=== PATIENT | female | born 1935 | race Caucasian/White ===

== ENCOUNTER 2017-10-04 09:04 | Inpatient (IN) | payer MEDICARE, OTHER ==
[2017-10-04] MEDS ORDERED: Metoprolol Tartrate 5 MG/5 ML VIAL ONE ×2 (09:27→10:30)
[2017-10-04 09:29] LABS: #Eosinphils 0.1 thou/uL (0.0-0.7); #Lymphocytes 2.5 thou/uL (1.20-3.40); #Monocytes 0.6 thou/uL (0.11-0.59); #Neutrophils 4.4 thou/uL (1.40-6.50); %Basophils 0.5 % (0.0-1.0); %Eosinophils 1.7 % (0.0-10.0); %Lymphocytes 32.4 % (21.0-51.0); %Monocytes 7.8 % (0.0-10.0); %Neutrophils 57.5 % (42.0-75.0); Hemoglobin 10.2 g/dL (12.0-16.0); Mean Corpuscular HGB CONC 31.9 g/dL (32.0-36.0); Mean Corpuscular Hemoglobin 31.7 pg (27.0-31.0); Mean Corpuscular Volume 99.4 fl (81.0-99.0); Mean Platelet Volume 8.4 fL (7.4-10.4); Platelet Count 228 thou/uL (130-400); RBC Distribution Width 13.5 % (11.5-14.5); Red Blood Cell (RBC) Count 3.21 mill/uL (4.20-5.40); White Blood Cell (WBC) Count 7.6 thou/uL (4.8-10.8)
[2017-10-04 09:56] LABS: ALT (SGPT) 8 U/L (8-55); AST (SGOT) 17 U/L (5-34); Albumin 3.7 g/dL (3.4-4.8); Alkaline Phosphatase 40 U/L (40-150); Anion Gap 16 mmol/L (10-20); BUN (Urea Nitrogen) 21 mg/dL (9.8-20.1); Bilirubin, Total 1.5 mg/dL (0.2-1.2); CK (CPK) 43 U/L (29-168); Calc. Creatinine Clearance 0 mL/min (70-130); Calcium 8.6 mg/dL (7.8-10.44); Carbon Dioxide 23 mmol/L (23-31); Chloride 101 mmol/L (98-107); Estimated GFR-MDRD 56; Globulin 3.1 g/dL (2.4-3.5); Glucose 161 mg/dL (83-110); Potassium 3.6 mmol/L (3.5-5.1); Protein, Total 6.8 g/dL (6.0-8.3); Sodium 136 mmol/L (136-145)
[2017-10-04 10:03] LABS: CKMB 0.6 ng/mL (0-6.6); Troponin I 0.028 ng/mL (< 0.028)
--- NOTE | 2017-10-04 10:08 | RAD ---
PORTABLE CHEST: History: Shortness of breath. Comparison: 08-12-14 FINDINGS: Cardiomegaly again noted. There is vascular congestion with mild interstitial congestion. Similar fin dings were present previously. I cannot exclude small effusions. No consolidation or focal infiltrate . IMPRESSION: Cardiomegaly with evidence of mild vascular congestion. POS: [facility]
[2017-10-04] MEDS ORDERED: Esmolol 2,500 MG/NS 250 ML 250 ML ONE (10:46)
[2017-10-04] MEDS ORDERED: Metoprolol Tartrate 50 MG TAB ONE (12:06)
[2017-10-04 12:48] LABS: Troponin I 0.036 ng/mL (< 0.028)
[2017-10-04] MEDS ORDERED: HYDROcodone/Acetaminophen 7.5/325 mg Tablet PO PRN (16:51)
[2017-10-04] MEDS ORDERED: Ondansetron HCl/PF 4 MG/2 ML Vial IVP PRN (16:51)
[2017-10-04] MEDS ORDERED: Nitroglycerin 0.4 MG TAB (25 Tab Bottle) PO PRN (16:51)
[2017-10-04] MEDS ORDERED: Dextrose 50% Abboject 50 ML SYRINGE SLOW IVP PRN (17:00)
[2017-10-04] MEDS ORDERED: Dextrose 5% in Water 1,000 ML IV PRN (17:00)
[2017-10-04] MEDS: HumaLOG 300 UNITS/3 ML VIAL SC PRN (17:48)
[2017-10-04] MEDS: Acetaminophen 325 MG TAB PO PRN ×2 (17:49→22:14)
--- NOTE | 2017-10-04 18:10 | HP ---
DATE OF ADMISSION: 10/04/2017 CHIEF COMPLAINT: Shortness of breath. HISTORY OF PRESENT ILLNESS: This is an 81-year-old white female who has a known history of coronary artery disease with history of hypertension and hyperlipidemia. She was in her usual state of health until 3 days ago, she started noticing worsening shortness of breath more worse when she was standin g and walking. Denies having any chest pain associated with some lightheadedness. No nausea, no vom iting, no diarrhea, no constipation. The patient has a known history of coronary artery disease, sta tus post stents more than 2 years ago and she sees Dr. Tilley. She denied having any chest pain re cently. She came to the ER and was noted to have atrial fibrillation with rapid ventricular rate. H eart rate went up to like 120s and she was given metoprolol 5 mg IV x1 and the heart rate did respond well, it dropped to 110. She got another dose when the heart rate was again going up to 130s and th e patient was responding very well to the beta blockers. She was alert and oriented. She had a ches t x-ray done in the ER, which showed an evidence of bilateral mild pleural effusions with signs sugge stive of congestive heart failure. She had a markedly elevated BNP. Discussed with the patient and the family at the bedside. PAST MEDICAL HISTORY: 1. Chronic anemia. 2. History of gastric ulcer disease. 3. Hypertension. 4. Coronary artery disease, status post stents. 5. Type 2 diabetes mellitus. 6. GERD. 7. Chronic renal insufficiency. PAST SURGICAL HISTORY: 1. . 2. Appendectomy. 3. Hernia repair. 4. Cholecystectomy. 5. History of stent placement. 6. Cataract surgery. ALLERGIES: No known drug allergies. FAMILY HISTORY: The patient's father with AL at old age and the patient's mother had stomach ca ncer and sister from ovarian cancer. SOCIAL HISTORY: The patient is a and she has 3 grown children. 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 REVIEW OF SYSTEMS: All 12 systems are reviewed with the patient thoroughly and found to be negative except the ones described in HPI. Constitutional: Weight loss or gain, sense of well-being, ability to conduct usual activities, exerc ise tolerance. Skin/Breast: Rash, itching, changes in hair growth or loss, nail changes, breast lumps, tenderness, swelling, nipple discharge. Eyes: Vision, double vision, tearing, blind spots, pain. ENT/Mouth: Headaches (location, time of onset, duration, precipitating factors), vertigo, lightheade dness, injury. Vision, double vision, tearing, blind spots, pain, nose bleeding, colds, obstruction, discharge, dental difficulties, gingival bleeding, dentures, neck stiffness, pain, tenderness, masses in thyroid or other areas Cardiovascular: Precordial pain, substernal distress, palpitations, syncope, dyspnea on exertion, or thopnea, nocturnal paroxysmal dyspnea, edema, cyanosis, hypertension, heart murmurs, varicosities, ph lebitis, claudication. Respiratory: Pain, shortness of breath, wheezing, stridor, cough, hemoptysis, fever or night sweats Gastrointestinal: Poor appetite, dysphagia, indigestion, abdominal pain, heartburn, eructation, naus ea, vomiting, hematemesis, jaundice, constipation, or diarrhea, abnormal stools (heather-colored, tarry, bloody, greasy, foul smelling), flatulence, hemorrhoids, recent changes in bowel habits. Genitourinary: Urgency, frequency, dysuria, nocturia, hematuria, polyuria, oliguria, unusual (or pepe nge in) color of urine, stones, hesitancy, change in size of stream, dribbling, acute retention or in continence, libido, potency. Musculoskeletal: Pain, swelling, redness or heat of muscles or joints, limitation, of motion, muscul ar weakness, atrophy, cramps. Neurologic/Psychiatric: Convulsions, paralyses, tremor, incoordination, paraesthesias, difficulties with memory of speech, sensory or motor disturbances, or muscular coordination (ataxia, tremor), emot ional problems, anxiety, depression, previous psychiatric care, unusual perceptions, hallucinations. Allergy/Immunologic: Skin rash, anemia, bleeding tendency, polydipsia, polyuria, intolerance to heat or cold. HOME MEDICATIONS: 1. Coreg 12.5 mg p.o. b.i.d. 2. Ezetimibe and simvastatin 10 mg and 40 mg daily. 3. Ferrous sulfate 325 mg p.o. b.i.d. 4. Lisinopril 20 mg p.o. daily. 5. Metformin 500 mg p.o. b.i.d. 6. Pantoprazole 40 mg p.o. b.i.d. 7. Sertraline 25 mg p.o. daily. 8. Spironolactone 25 mg p.o. daily. PHYSICAL EXAMINATION: VITAL SIGNS: Blood pressure is 128/80, respiratory rate is 18, saturation is 98% on 3 liters. GENERAL: The patient is moderately built and moderately nourished. She does not appear to be in any acute distress at this time. Alert and oriented x3. HEENT: Atraumatic, normocephalic, PERRLA. Extraocular movements were intact. Oral mucosa is pink a nd moist. CARDIOVASCULAR: S1, S2 normal. No murmurs, rubs or gallops. LUNGS: Bilateral air entry was equal. Crackles were noted in the lower bases up to the mid lungs bi laterally. NECK: JVD was noted. No thyromegaly. ABDOMEN: Soft, nontender, no guarding, no rebound tenderness. Bowel sounds normal. MUSCULOSKELETAL: No calf tenderness. Pedal edema was noted, 2+ up to the knees bilaterally. NEUROLOGIC: Cranial examination II-XII intact. No focal deficits were noted. SKIN: No cyanosis, no erythema, no rash, no pallor. LYMPHATICS: Lymphadenopathy, no evidence of any generalized lymph nodes were noted. LABORATORY DATA: WBC 7.6, hemoglobin is 10.2, hematocrit 31.9, platelets are 228. Sodium is 136, po tassium 3.6, chloride is 101, bicarbonate is 23, BUN 21, creatinine 0.95, blood sugar is 161, total b ilirubin 1.5. BNP was 486. Troponin was at 0.028 and increased to 0.36 and then trending back down to 0.030. ASSESSMENT: 1. Acute atrial fibrillation with rapid ventricular rate. 2. Acute congestive heart failure, likely diastolic dysfunction. 3. Elevated troponins from demand ischemia. 4. Type 2 diabetes mellitus. 5. Hypertension. 6. Gastroesophageal reflux disease. 7. Peptic ulcer disease. PLAN: 1. Plan is to start the patient on metoprolol. The patient was given metoprolol succinate 50 mg. T he patient is on Coreg. We will start this from tomorrow. We will continue the patient on lisinoprbrook boland. She is on 20 mg and we will do Lasix 20 mg IV b.i.d. as the patient has clear evidence of volume overload. We will do a 2D echo to look for any evidence of wall motion abnormality and consult her c ardiologist, Dr. Tilley. 2. The patient has elevated troponins, likely from a demand ischemia, but she denies having any ches t pain and there are no EKG changes. EKG has been reviewed by me. The patient has signs of congesti ve heart failure. We will continue to monitor at this time. We will continue with Lasix as describe d above 20 mg IV b.i.d. 3. The patient has type 2 diabetes mellitus, well controlled. We will hold off on metformin at this time and start the patient on sliding scale at moderate intensity. 4. The patient has a history of peptic ulcer disease. We will start the patient on Protonix 40 mg, she takes twice a day. 5. Deep venous thrombosis prophylaxis, Lovenox 40 mg subcu daily. I spent 75 minutes of this patient.
[2017-10-04] MEDS ORDERED: Sodium Chloride 0.9% 10 ML ONE (20:41)
[2017-10-04] MEDS: Carvedilol 6.25 MG TAB PO SCH (21:07)
[2017-10-04] MEDS: Simvastatin 40 MG TAB PO SCH (21:08)
[2017-10-04] MEDS: Famotidine/PF 20 mg/2ml Vial SLOW IVP SCH (21:08)
[2017-10-04] MEDS: Enoxaparin Sodium 80 MG/0.8 ML SYRINGE SC SCH (21:08)
[2017-10-05 05:25] LABS: #Lymphocytes 1.4 thou/uL (1.20-3.40); #Monocytes 0.3 thou/uL (0.11-0.59); #Neutrophils 6.3 thou/uL (1.40-6.50); %Eosinophils 0.1 % (0.0-10.0); %Lymphocytes 17.1 % (21.0-51.0); %Monocytes 3.6 % (0.0-10.0); %Neutrophils 79.1 % (42.0-75.0); Hemoglobin 9.4 g/dL (12.0-16.0); Mean Corpuscular HGB CONC 31.8 g/dL (32.0-36.0); Mean Corpuscular Hemoglobin 31.5 pg (27.0-31.0); Mean Corpuscular Volume 99.1 fl (81.0-99.0); Mean Platelet Volume 8.4 fL (7.4-10.4); Platelet Count 229 thou/uL (130-400); RBC Distribution Width 13.8 % (11.5-14.5); Red Blood Cell (RBC) Count 2.97 mill/uL (4.20-5.40)
[2017-10-05] MEDS ORDERED: Sodium Chloride 0.9% 10 ML ONE (05:33)
[2017-10-05 05:39] LABS: Anion Gap 12 mmol/L (10-20); BUN (Urea Nitrogen) 34 mg/dL (9.8-20.1); Calc. Creatinine Clearance 42 mL/min (70-130); Calcium 8.9 mg/dL (7.8-10.44); Carbon Dioxide 27 mmol/L (23-31); Cardiac Risk 2.5 (Less than 4.5); Chloride 100 mmol/L (98-107); Cholesterol 84 mg/dl (< 200 Desired); Estimated GFR-MDRD 39; Glucose 203 mg/dL (83-110); HDL Cholesterol 33 mg/dL (>60 Neg Risk); LDL Cholesterol, Calculated 41 mg/dL; Potassium 3.6 mmol/L (3.5-5.1); Sodium 135 mmol/L (136-145); Triglycerides 50 mg/dL (Less than 150)
[2017-10-05] MEDS: Furosemide 20 MG/2 ML VIAL SLOW IVP SCH ×2 (06:04→13:29)
[2017-10-05] MEDS ORDERED: Lisinopril 20 MG TAB PO SCH (09:00)
[2017-10-05] MEDS: Famotidine/PF 20 mg/2ml Vial SLOW IVP SCH (09:46)
[2017-10-05] MEDS: Carvedilol 6.25 MG TAB PO SCH ×2 (09:47→20:31)
[2017-10-05] MEDS: Enoxaparin Sodium 80 MG/0.8 ML SYRINGE SC SCH ×2 (09:47→20:30)
[2017-10-05] MEDS: Ferrous Sulfate 325 MG TAB PO SCH ×2 (09:48→17:44)
[2017-10-05] MEDS: Lisinopril 20 MG TAB PO SCH (09:48)
[2017-10-05] MEDS: HumaLOG 300 UNITS/3 ML VIAL SC PRN ×2 (11:27→17:44)
--- NOTE | 2017-10-05 14:35 | PDOC.PN ---
- Subjective Encounter Start Date: 10/05/17 Encounter Start Time: 10:00 Patient is seen today, alert and oriented. Waiting on Cardiology recommedations , pt is clinically stbale, off of oxygen. No chest pain. - Objective Resuscitation Status: Resuscitation Status FULL:Full Resuscitation MAR Reviewed: Yes Vital Signs & Weight: Vital Signs (12 hours) Temp Pulse Pulse Pulse Resp BP BP 10/05/17 11:25 98 20 10/05/17 09:52 114 H 114 H 143/89 H 10/05/17 09:47 98.7 F 121/62 10/05/17 07:35 97 18 10/05/17 05:57 72 20 10/05/17 04:00 97.6 F 94 20 BP BP Pulse Ox 10/05/17 11:25 136/70 92 L 10/05/17 09:52 134/78 10/05/17 09:47 10/05/17 07:35 121/62 93 L 10/05/17 05:57 114/77 10/05/17 04:00 117/64 97 Weight Admit Weight 180 lb 1.6 oz Weight 180 lb 1.6 oz I&O: 10/04/17 10/05/17 10/06/17 06:59 06:59 06:59 Intake Total 504 Output Total 100 Balance 404 Result Diagrams: 10/05/17 04:42 10/05/17 04:42 Additional Labs: Accuchecks 10/05/17 10/05/17 10/04/17 10:47 05:28 20:27 POC Glucose 193 H 208 H 238 H 10/04/17 17:48 POC Glucose 229 H Radiology Reviewed by me: Yes EKG Reviewed by me: Yes Phys Exam - Physical Examination HEENT: PERRLA, moist MMs Neck: no nodes, no JVD Respiratory: no rales, wheezing present Cardiovascular: no significant murmur, no rub Gastrointestinal: soft, non-tender Musculoskeletal: pulses present, edema present Neurological: non-focal, normal sensation Lymphatic: no nodes Psychiatric: normal affect, A&O x 3 Skin: no rash, normal turgor Dx/Plan (1) Atrial fibrillation with RVR Code(s): I48.91 - UNSPECIFIED ATRIAL FIBRILLATION Status: Acute Comment: PT is on Coreg 12.5mg BID, rate is <100 today, NO palpitation, pending Echo. cardiology recommedations awaited. (2) Acute systolic CHF (congestive heart failure) Code(s): I50.21 - ACUTE SYSTOLIC (CONGESTIVE) HEART FAILURE Status: Acute Comment: Worsening BNP noted, pt is Started on IV lasix, showed Wordsening renal fucntions, likely Cadiorenal. May need More diuresis, will wait for cardiology to see. (3) EVANS (acute kidney injury) Code(s): N17.9 - ACUTE KIDNEY FAILURE, UNSPECIFIED Status: Acute Comment: Likely Cardiorenal, Will follow clsoley, Avoid nephrotoxic meds. (4) DM type 2 (diabetes mellitus, type 2) Status: Acute Comment: Well controlled, Continue Home MEds, Hold Metformin. SSI, keep BG 140-180. - Plan cont current plan of care, PT/OT, social media assistant, incentive spirometry, DVT proph w/lovenox * . - Discharge Day Encounter end time: 10:40 Review of Systems - Review of Systems Constitutional: negative: fever, chills, sweats, weakness, malaise, other Eyes: negative: Pain, Vision Change, Conjunctivae Inflammation, Eyelid Inflammation, Redness, Other ENT: negative: Ear Pain, Ear Discharge, Nose Pain, Nose Discharge, Nose Congestion, Mouth Pain, Mouth Swelling, Throat Pain, Throat Swelling, Other Respiratory: Wheezing. negative: Cough, Dry, Shortness of Breath, Hemoptysis, SOB with Excertion, Pleuritic Pain, Sputum Cardiovascular: edema Gastrointestinal: negative: Nausea, Vomiting, Abdominal Pain, Diarrhea, Constipation, Melena, Hematochezia, Other Musculoskeletal: negative: Neck Pain, Shoulder Pain, Arm Pain, Back Pain, Hand Pain, Leg Pain, Foot Pain, Other Skin: negative: Rash, Lesions, Girish, Bruising, Other - Medications/Allergies Allergies/Adverse Reactions: Allergies Allergy/AdvReac Type Severity Reaction Status Date / Time No Known Allergies Allergy Verified 12/01/14 17:16 Medications: Current Medications Acetaminophen (Tylenol) 650 mg PO Q4H PRN PRN Reason: Headache/Fever or Pain Last Admin: 10/04/17 22:14 Dose: 650 mg Hydrocodone Bitart/Acetaminophen ([place] 7.5/325) 1 tab PO Q4H PRN PRN Reason: Moderate Pain (4-6) Carvedilol (Coreg) 12.5 mg PO BID [facility] Last Admin: 10/05/17 09:47 Dose: 12.5 mg Dextrose/Water (Dextrose 50%) 25 gm SLOW IVP PRN PRN PRN Reason: Hypoglycemia Ezetimibe (Zetia) 10 mg PO HS [facility] Enoxaparin Sodium (Lovenox) 80 mg SC 0900,2100 [facility] Last Admin: 10/05/17 09:47 Dose: 80 mg Famotidine (Pepcid) 20 mg PO 0900 [facility] Ferrous Sulfate (Feosol) 325 mg PO BID-[facility] Last Admin: 10/05/17 09:48 Dose: 325 mg Furosemide (Lasix) 20 mg SLOW IVP 0600,1400 [facility] Last Admin: 10/05/17 13:29 Dose: 20 mg Glucagon (Glucagon) 1 mg IM PRN PRN PRN Reason: Hypoglycemia Dextrose/Water (D5w) 1,000 mls @ 0 mls/hr IV .Q0M PRN; As Directed PRN Reason: Hypoglycemia Insulin Human Lispro (Humalog) 0 units SC .MODERATE SLIDING SC PRN PRN Reason: Moderate Correctional Scale Last Admin: 10/05/17 11:27 Dose: 2 unit Lisinopril (Zestril) 20 mg PO DAILY [facility] Last Admin: 10/05/17 09:48 Dose: Not Given Nitroglycerin (Nitrostat) 0.4 mg PO Q5MIN PRN PRN Reason: Chest Pain Ondansetron HCl (Zofran) 4 mg IVP Q6H PRN PRN Reason: Nausea/Vomiting Pantoprazole Sodium (Protonix) 40 mg PO BID [facility] Last Admin: 10/05/17 09:47 Dose: 40 mg Sertraline HCl (Zoloft) 25 mg PO DAILY [facility] Last Admin: 10/05/17 09:48 Dose: 25 mg Simvastatin (Zocor) 40 mg PO [facility] Last Admin: 10/04/17 21:08 Dose: 40 mg Sodium Chloride (Flush - Normal Saline) 10 ml IVF Q12HR [facility] Sodium Chloride (Flush - Normal Saline) 10 ml IVF PRN PRN PRN Reason: Saline Flush
--- NOTE | 2017-10-05 18:31 | CON ---
DATE OF CONSULTATION: 10/05/2017 HISTORY OF PRESENT ILLNESS: Inga Deng is an 81-year-old white female that I have followed since 10/1997. She had myocardial infarction in 05/1988 and received intravenous streptokinase and nitroglycerin in [place] and was transferred to [facility] in [place]. Her CK was 3800. She underwent cardiac catheterization and was found to have a filling defect in the proximal right coronary artery with complete occlusion of the mid right coronary artery. The distal third filled retrograde from the left. There was 90% lesion in the mid LAD after the diagonal. She had inferior and inferobasal akinesis with ejection fraction of 35%. One month later, she returned, so she could recover from her inferior infarction and underwent PTCA of the proximal LAD with reduction from 90% to 10% . A 2.5 mm skinny balloon was used. In 03/1994, she was hospitalized for chest discomfort, but did not have any evidence of myocardial infarction. Intermittently, she would have chest discomfort that was somewhat rare until 3 months prior to my initial evaluation. She then started noticing leg edema as well as episodes of dyspnea occurring almost nightly. She also would have occasional episodes of chest tightness lasting for 10 minutes associated with shortness of breath. Echo revealed the study to be technically difficult left atrial enlargement, aortic valvular fibrosis, mild inferior hypokinesis with ejection fraction of 50%. Mild tricuspid regurgitation. It was recommend that she undergo repeat catheterization, which was performed in 10/1997. She had moderate inferobasal and inferior hypokinesis with ejection fraction of 50% to 55%. There was a 95% proximal and 80% mid LAD stenosis. The right coronary was totally occluded and filled retrograde from the left. She underwent placement of a Jakin 3.0 x 22 mm and 4.0 x 22 mm stent. The decision was made to place a 3.0 x 15 mm multilink stent distal to the distal portion of the Jakin stent. Final result was excellent. With balloon inflation, the patient did have her usual chest discomfort. She develops a hematoma in her leg afterwards has had to have continuous compression to the area. She has been followed as an outpatient and underwent dobutamine echo testing in 05/1998, 05/1999, 03/2002 and 03/2003. All of these essentially showed scar of the inferior and posterior wall, but no evidence of stress induced ischemia. In 04/2004, she was admitted with atypical chest pain. She did undergo cardiac catheterization at that time and was found to have severe inferobasal and inferior hypokinesis with ejection fraction of 40% to 45%. There continued to be good proximal to mid LAD stent with 20% in-stent restenosis. There was 30% proximal circumflex lesion. The right coronary was totally occluded and filled retrograde from the left. Again in 01/2005, she was admitted with chest discomfort. She had been noncompliant with her Protonix. Adenosine Cardiolite was performed, which showed a large fixed inferior defect consistent with her previous infarction, but no ischemia. She has continued to do fairly well. She was last seen in the office in 2012 and has been noncompliant with any followup since that time. She states that she had been doing fairly well until 4 days ago when she began to notice shortness of breath as well as her heart beating very rapidly whenever she would stand. She denied having any chest discomfort. She came to the emergency room and was found to be in atrial fibrillation with fast ventricular response. She has been treated with Lovenox and her carvedilol has been continued. PAST MEDICAL HISTORY: Hypertension, hypercholesterolemia, and diabetes. OPERATIONS: Repair of abdominal hernia as well as small bowel damage resulting in rupture with prolonged hospital course, cholecystectomy, other herniorrhaphies, bilateral venous stripping, , appendectomy, and cataract surgery. MEDICATIONS: Ecotrin 81 daily, carvedilol 12.5 b.i.d., ferrous sulfate 65 every other day, metformin 500 mg t.i.d. CoQ10 100 mg every other day, vitamin D3, Vytorin 10/40 daily. ALLERGIES: None. SOCIAL HISTORY: She does not smoke or drink. 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 FAMILY HISTORY: Father of myocardial infarction at age 64. Brother was Rom Snyder and he had had bypass surgery. REVIEW OF SYSTEMS: Twelve point review of systems is otherwise unremarkable. PHYSICAL EXAMINATION: VITAL SIGNS: Blood pressure 119/80, pulse of 109, atrial fibrillation on the monitor. HEENT: PERRL. NECK: Supple. CHEST: Reveals occasional expiratory wheeze. CARDIOVASCULAR: S1 and S2 are normal without any S3, S4 or murmurs. ABDOMEN: Obese, normal bowel sounds, no tenderness. EXTREMITIES: Revealed no clubbing, cyanosis or edema. NEUROLOGIC: Grossly intact. SKIN: Warm and dry. LABORATORY DATA: EKG reveals atrial fibrillation with fast ventricular response , incomplete left bundle branch block, possible left ventricular hypertrophy. Hemoglobin 9.4, hematocrit 29.5, white count 8000, platelets 229,000. Sodium 135, potassium 3.6, chloride 100, carbon dioxide 27, BUN 34, creatinine 1.30. BNP is 1669.2. Cholesterol 84, triglycerides 50, HDL 33, LDL 41. Troponin I is 0.036. IMPRESSION: 1. Atrial fibrillation with rapid ventricular response, which historically sounds if it started 4 days ago. 2. Congestive heart failure with echocardiogram in 06/2012 revealed an ejection fraction of 35% to 40% with inferior-posterior akinesis. 3. Demand ischemia. 4. Coronary artery disease, history of inferior infarction in 1987 followed by stent placement in the left anterior descending in 10/1997. 5. Diabetes. 6. Hypertension. 7. Gastroesophageal reflux disease. 8. Hypercholesterolemia, under good control. PLAN: Ms. Deng states that she has not had any problems with falling at home. She currently was anticoagulated with Lovenox 1 mg/kg b.i.d. and this can be transitioned to one of the newer agents over the next several days. With her left ventricular dysfunction, I feel the only medication that could probably keep her in sinus rhythm would be amiodarone, I will start her on amiodarone loading protocol. Consideration can be given to transesophageal echo followed by possible cardioversion in several days. Echo also will be performed to reassess left ventricular function, although I feel it is probably below 35% given her echo 5 years ago. AMRIKD
[2017-10-05] MEDS: Simvastatin 40 MG TAB PO SCH (20:31)
[2017-10-05] MEDS: Amiodarone 200 MG TAB PO SCH (20:31)
[2017-10-05] MEDS: Ezetimibe 10 MG TAB PO SCH (20:31)
[2017-10-06] MEDS: Furosemide 20 MG/2 ML VIAL SLOW IVP SCH ×2 (06:25→15:08)
[2017-10-06] MEDS: Enoxaparin Sodium 80 MG/0.8 ML SYRINGE SC SCH ×2 (08:36→21:49)
[2017-10-06] MEDS: Lisinopril 20 MG TAB PO SCH (08:36)
[2017-10-06] MEDS: Carvedilol 6.25 MG TAB PO SCH ×2 (08:37→21:50)
[2017-10-06] MEDS: Famotidine 20 MG TAB PO SCH (08:37)
[2017-10-06] MEDS: Ferrous Sulfate 325 MG TAB PO SCH ×2 (08:37→18:07)
[2017-10-06] MEDS: Amiodarone 200 MG TAB PO SCH ×3 (08:37→21:50)
[2017-10-06 10:31] LABS: Anion Gap 12 mmol/L (10-20); BUN (Urea Nitrogen) 48 mg/dL (9.8-20.1); Calc. Creatinine Clearance 34 mL/min (70-130); Calcium 8.7 mg/dL (7.8-10.44); Carbon Dioxide 27 mmol/L (23-31); Chloride 98 mmol/L (98-107); Estimated GFR-MDRD 31; Glucose 175 mg/dL (83-110); Potassium 3.4 mmol/L (3.5-5.1); Sodium 134 mmol/L (136-145)
[2017-10-06] MEDS: HumaLOG 300 UNITS/3 ML VIAL SC PRN (11:45)
--- NOTE | 2017-10-06 13:46 | PDOC.PN ---
- Subjective Encounter Start Date: 10/06/17 Encounter Start Time: 11:00 Patient is seen today, alert and oriented. she persistantly feels lightheaded when she is stands out of bed. - Objective Resuscitation Status: Resuscitation Status FULL:Full Resuscitation MAR Reviewed: Yes Vital Signs & Weight: Vital Signs (12 hours) Temp Pulse Resp BP BP Pulse Ox 10/06/17 11:25 77 20 135/68 94 L 10/06/17 08:36 134/89 10/06/17 08:00 96.2 F L 104 H 18 95 10/06/17 07:32 96.2 F L 104 H 18 134/89 95 10/06/17 04:00 97.4 F L 64 19 119/58 L 95 10/06/17 03:21 95 Weight Admit Weight 180 lb 1.6 oz Weight 180 lb I&O: 10/05/17 10/06/17 10/07/17 06:59 06:59 06:59 Intake Total 504 658 Output Total 100 Balance 404 658 Result Diagrams: 10/05/17 04:42 10/06/17 10:13 Additional Labs: Accuchecks 10/06/17 10/06/17 10/05/17 11:00 06:12 20:41 POC Glucose 161 H 140 H 130 H 10/05/17 16:27 POC Glucose 161 H Radiology Reviewed by me: Yes Phys Exam - Physical Examination HEENT: PERRLA, moist MMs, oral pharynx no lesions Neck: no nodes, no JVD Respiratory: wheezing present Cardiovascular: RRR, no significant murmur Gastrointestinal: soft, non-tender Musculoskeletal: no edema, pulses present Neurological: non-focal, normal sensation Lymphatic: no nodes Psychiatric: normal affect, A&O x 3 Skin: no rash, normal turgor Dx/Plan (1) Atrial fibrillation with RVR Code(s): I48.91 - UNSPECIFIED ATRIAL FIBRILLATION Status: Acute Comment: PT is on Coreg 12.5mg BID, rate is <100 today, NO palpitation, Echo showed poor EF 25-30, and severe Mitral Regurgitatoion. Planned for Amiodarone today, and NAUN and Cardiovertion is few days, Follow cardiology. (2) Acute systolic CHF (congestive heart failure) Code(s): I50.21 - ACUTE SYSTOLIC (CONGESTIVE) HEART FAILURE Status: Acute Comment: Worsening BNP noted, pt is Started on IV lasix, showed Wordsening renal fucntions, likely Cadiorenal. May need More diuresis. (3) EVANS (acute kidney injury) Code(s): N17.9 - ACUTE KIDNEY FAILURE, UNSPECIFIED Status: Acute Comment: Likely Cardiorenal, Will follow clsoley, Avoid nephrotoxic meds. (4) DM type 2 (diabetes mellitus, type 2) Status: Acute Comment: Well controlled, Continue Home MEds, Hold Metformin. SSI, keep BG 140-180. - Plan cont current plan of care, plan discussed w/ family, PT/OT, social media assistant, respiratory therapy, incentive spirometry, out of bed/ambulate, DVT proph w/ lovenox * . - Discharge Day Encounter end time: 11:35 Review of Systems - Review of Systems Constitutional: negative: fever, chills, sweats, weakness, malaise, other Eyes: negative: Pain, Vision Change, Conjunctivae Inflammation, Eyelid Inflammation, Redness, Other ENT: negative: Ear Pain, Ear Discharge, Nose Pain, Nose Discharge, Nose Congestion, Mouth Pain, Mouth Swelling, Throat Pain, Throat Swelling, Other Respiratory: negative: Cough, Dry, Shortness of Breath, Hemoptysis, SOB with Excertion, Pleuritic Pain, Sputum, Wheezing Cardiovascular: orthopnea, light headedness. negative: chest pain, palpitations , paroxysmal nocturnal dyspnea, edema, other Gastrointestinal: negative: Nausea, Vomiting, Abdominal Pain, Diarrhea, Constipation, Melena, Hematochezia, Other Genitourinary: negative: Dysuria, Frequency, Incontinence, Hematuria, Retention , Other Musculoskeletal: negative: Neck Pain, Shoulder Pain, Arm Pain, Back Pain, Hand Pain, Leg Pain, Foot Pain, Other Skin: negative: Rash, Lesions, Girish, Bruising, Other - Medications/Allergies Allergies/Adverse Reactions: Allergies Allergy/AdvReac Type Severity Reaction Status Date / Time No Known Allergies Allergy Verified 12/01/14 17:16 Medications: Current Medications Acetaminophen (Tylenol) 650 mg PO Q4H PRN PRN Reason: Headache/Fever or Pain Last Admin: 10/04/17 22:14 Dose: 650 mg Hydrocodone Bitart/Acetaminophen ([place] 7.5/325) 1 tab PO Q4H PRN PRN Reason: Moderate Pain (4-6) Last Admin: 10/05/17 17:44 Dose: 1 tab Amiodarone HCl (Cordarone) 400 mg PO TID [facility] Last Admin: 10/06/17 08:37 Dose: 400 mg Carvedilol (Coreg) 12.5 mg PO BID [facility] Last Admin: 10/06/17 08:37 Dose: 12.5 mg Dextrose/Water (Dextrose 50%) 25 gm SLOW IVP PRN PRN PRN Reason: Hypoglycemia Ezetimibe (Zetia) 10 mg PO [facility] Last Admin: 10/05/17 20:31 Dose: 10 mg Enoxaparin Sodium (Lovenox) 80 mg SC 0900,2100 [facility] Last Admin: 10/06/17 08:36 Dose: 80 mg Famotidine (Pepcid) 20 mg PO 0900 [facility] Last Admin: 10/06/17 08:37 Dose: 20 mg Ferrous Sulfate (Feosol) 325 mg PO BID-[facility] Last Admin: 10/06/17 08:37 Dose: 325 mg Furosemide (Lasix) 20 mg SLOW IVP 0600,1400 [facility] Last Admin: 10/06/17 06:25 Dose: 20 mg Glucagon (Glucagon) 1 mg IM PRN PRN PRN Reason: Hypoglycemia Dextrose/Water (D5w) 1,000 mls @ 0 mls/hr IV .Q0M PRN; As Directed PRN Reason: Hypoglycemia Insulin Human Lispro (Humalog) 0 units SC .MODERATE SLIDING SC PRN PRN Reason: Moderate Correctional Scale Last Admin: 10/06/17 11:45 Dose: 2 unit Lisinopril (Zestril) 20 mg PO DAILY [facility] Last Admin: 10/06/17 08:36 Dose: 20 mg Nitroglycerin (Nitrostat) 0.4 mg PO Q5MIN PRN PRN Reason: Chest Pain Ondansetron HCl (Zofran) 4 mg IVP Q6H PRN PRN Reason: Nausea/Vomiting Pantoprazole Sodium (Protonix) 40 mg PO BID [facility] Last Admin: 10/06/17 08:37 Dose: 40 mg Sertraline HCl (Zoloft) 25 mg PO DAILY [facility] Last Admin: 10/06/17 08:37 Dose: 25 mg Simvastatin (Zocor) 40 mg PO [facility] Last Admin: 10/05/17 20:31 Dose: 40 mg Sodium Chloride (Flush - Normal Saline) 10 ml IVF Q12HR [facility] Last Admin: 10/06/17 08:36 Dose: 10 ml Sodium Chloride (Flush - Normal Saline) 10 ml IVF PRN PRN PRN Reason: Saline Flush
[2017-10-06] MEDS: Ezetimibe 10 MG TAB PO SCH (21:50)
[2017-10-06] MEDS: Simvastatin 40 MG TAB PO SCH (21:50)
[2017-10-07] MEDS: Furosemide 20 MG/2 ML VIAL SLOW IVP SCH ×2 (06:04→14:04)
[2017-10-07 07:19] LABS: Hemoglobin 8.6 g/dL (12.0-16.0); Platelet Count 251 thou/uL (130-400)
[2017-10-07] MEDS: Ferrous Sulfate 325 MG TAB PO SCH ×2 (08:48→17:05)
[2017-10-07] MEDS: Amiodarone 200 MG TAB PO SCH ×2 (08:48→14:05)
[2017-10-07] MEDS: Lisinopril 20 MG TAB PO SCH (08:48)
[2017-10-07] MEDS: Famotidine 20 MG TAB PO SCH (08:48)
[2017-10-07] MEDS: Carvedilol 6.25 MG TAB PO SCH (08:48)
[2017-10-07] MEDS: Enoxaparin Sodium 80 MG/0.8 ML SYRINGE SC SCH ×2 (08:48→20:11)
[2017-10-07 10:48] LABS: Anion Gap 15 mmol/L (10-20); BUN (Urea Nitrogen) 49 mg/dL (9.8-20.1); Calc. Creatinine Clearance 40 mL/min (70-130); Calcium 8.5 mg/dL (7.8-10.44); Carbon Dioxide 23 mmol/L (23-31); Chloride 98 mmol/L (98-107); Estimated GFR-MDRD 37; Glucose 118 mg/dL (83-110); Potassium 3.3 mmol/L (3.5-5.1); Sodium 133 mmol/L (136-145)
--- NOTE | 2017-10-07 12:25 | PDOC.PN ---
- Subjective Encounter Start Date: 10/07/17 Encounter Start Time: 10:30 Patient is seen today, diuscussed with Family at bedside, Plan to continue with Amiodarone/ lasix, reevalaute for cardiovertion later this week. pt is Still feeling dizzy and nausea. - Objective Resuscitation Status: Resuscitation Status FULL:Full Resuscitation MAR Reviewed: Yes Vital Signs & Weight: Vital Signs (12 hours) Temp Pulse Resp BP BP Pulse Ox 10/07/17 11:30 98.2 F 77 16 122/61 93 L 10/07/17 08:48 134/89 10/07/17 08:00 97.6 F 76 18 154/67 H 95 10/07/17 04:00 97.9 F 78 18 120/60 97 10/07/17 03:06 94 L Weight Admit Weight 180 lb 1.6 oz Weight 179 lb 6.4 oz I&O: 10/06/17 10/07/17 10/08/17 06:59 06:59 06:59 Intake Total 658 1050 Output Total 950 Balance 658 100 Result Diagrams: 10/07/17 07:03 10/07/17 07:03 Additional Labs: Accuchecks 10/07/17 10/07/17 10/06/17 10:45 05:20 19:55 POC Glucose 168 H 133 H 197 H 10/06/17 16:14 POC Glucose 140 H Radiology Reviewed by me: Yes Phys Exam - Physical Examination HEENT: PERRLA, moist MMs Neck: no nodes, no JVD Respiratory: wheezing present Cardiovascular: no significant murmur, irregular Gastrointestinal: soft, non-tender Musculoskeletal: no edema, pulses present Neurological: non-focal, normal sensation Lymphatic: no nodes Psychiatric: normal affect, A&O x 3 Dx/Plan (1) Atrial fibrillation with RVR Code(s): I48.91 - UNSPECIFIED ATRIAL FIBRILLATION Status: Acute Comment: PT is on Coreg 12.5mg BID, rate is <100 today, NO palpitation, Echo showed poor EF 25-30, and severe Mitral Regurgitatoion. Planned for Amiodarone today, and NAUN and Cardiovertion is few days, Follow cardiology. (2) Acute systolic CHF (congestive heart failure) Code(s): I50.21 - ACUTE SYSTOLIC (CONGESTIVE) HEART FAILURE Status: Acute Comment: Worsening BNP noted, pt is Started on IV lasix, showed Wordsening renal fucntions, likely Cadiorenal. May need More diuresis. (3) EVANS (acute kidney injury) Code(s): N17.9 - ACUTE KIDNEY FAILURE, UNSPECIFIED Status: Acute Comment: Likely Cardiorenal, Will follow clsoley, Avoid nephrotoxic meds. (4) DM type 2 (diabetes mellitus, type 2) Status: Acute Comment: Well controlled, Continue Home MEds, Hold Metformin. SSI, keep BG 140-180. - Plan cont current plan of care, plan discussed w/ family, PT/OT, social studies teacher, out of bed/ambulate, DVT proph w/lovenox * . - Discharge Day Encounter end time: 11:05 Review of Systems - Review of Systems Constitutional: weakness. negative: fever, chills, sweats, malaise, other Eyes: negative: Pain, Vision Change, Conjunctivae Inflammation, Eyelid Inflammation, Redness, Other ENT: negative: Ear Pain, Ear Discharge, Nose Pain, Nose Discharge, Nose Congestion, Mouth Pain, Mouth Swelling, Throat Pain, Throat Swelling, Other Respiratory: negative: Cough, Dry, Shortness of Breath, Hemoptysis, SOB with Excertion, Pleuritic Pain, Sputum, Wheezing Cardiovascular: light headedness Gastrointestinal: negative: Nausea, Vomiting, Abdominal Pain, Diarrhea, Constipation, Melena, Hematochezia, Other Genitourinary: negative: Dysuria, Frequency, Incontinence, Hematuria, Retention , Other Musculoskeletal: negative: Neck Pain, Shoulder Pain, Arm Pain, Back Pain, Hand Pain, Leg Pain, Foot Pain, Other Skin: negative: Rash, Lesions, Girish, Bruising, Other Neurological: negative: Weakness, Numbness, Incoordination, Change in Speech, Confusion, Seizures, Other - Medications/Allergies Allergies/Adverse Reactions: Allergies Allergy/AdvReac Type Severity Reaction Status Date / Time No Known Allergies Allergy Verified 12/01/14 17:16 Medications: Current Medications Acetaminophen (Tylenol) 650 mg PO Q4H PRN PRN Reason: Headache/Fever or Pain Last Admin: 10/04/17 22:14 Dose: 650 mg Hydrocodone Bitart/Acetaminophen ([place] 7.5/325) 1 tab PO Q4H PRN PRN Reason: Moderate Pain (4-6) Last Admin: 10/05/17 17:44 Dose: 1 tab Amiodarone HCl (Cordarone) 400 mg PO TID [facility] Last Admin: 10/07/17 08:48 Dose: 400 mg Carvedilol (Coreg) 12.5 mg PO BID [facility] Last Admin: 10/07/17 08:48 Dose: 12.5 mg Dextrose/Water (Dextrose 50%) 25 gm SLOW IVP PRN PRN PRN Reason: Hypoglycemia Ezetimibe (Zetia) 10 mg PO [facility] Last Admin: 10/06/17 21:50 Dose: 10 mg Enoxaparin Sodium (Lovenox) 80 mg SC 0900,2100 [facility] Last Admin: 10/07/17 08:48 Dose: 80 mg Famotidine (Pepcid) 20 mg PO 0900 [facility] Last Admin: 10/07/17 08:48 Dose: 20 mg [facility] Last Admin: 10/07/17 08:48 Dose: 325 mg Furosemide (Lasix) 20 mg SLOW IVP 0600,1400 [facility] Last Admin: 10/07/17 06:04 Dose: 20 mg Glucagon (Glucagon) 1 mg IM PRN PRN PRN Reason: Hypoglycemia Dextrose/Water (D5w) 1,000 mls @ 0 mls/hr IV .Q0M PRN; As Directed PRN Reason: Hypoglycemia Insulin Human Lispro (Humalog) 0 units SC .MODERATE SLIDING SC PRN PRN Reason: Moderate Correctional Scale Last Admin: 10/06/17 11:45 Dose: 2 unit Lisinopril (Zestril) 20 mg PO DAILY [facility] Last Admin: 10/07/17 08:48 Dose: 20 mg Nitroglycerin (Nitrostat) 0.4 mg PO Q5MIN PRN PRN Reason: Chest Pain Ondansetron HCl (Zofran) 4 mg IVP Q6H PRN PRN Reason: Nausea/Vomiting Pantoprazole Sodium (Protonix) 40 mg PO BID [facility] Last Admin: 10/07/17 08:48 Dose: 40 mg Sertraline HCl (Zoloft) 25 mg PO DAILY [facility] Last Admin: 10/07/17 08:49 Dose: 25 mg Simvastatin (Zocor) 40 mg PO [facility] Last Admin: 10/06/17 21:50 Dose: 40 mg Sodium Chloride (Flush - Normal Saline) 10 ml IVF Q12HR [facility] Last Admin: 10/07/17 08:48 Dose: 10 ml Sodium Chloride (Flush - Normal Saline) 10 ml IVF PRN PRN PRN Reason: Saline Flush
[2017-10-07] MEDS: Simvastatin 40 MG TAB PO SCH (20:11)
[2017-10-07] MEDS: Ezetimibe 10 MG TAB PO SCH (20:11)
[2017-10-08] MEDS: Furosemide 20 MG/2 ML VIAL SLOW IVP SCH ×2 (05:38→14:46)
[2017-10-08] MEDS: Carvedilol 6.25 MG TAB PO SCH ×3 (08:57→20:50)
[2017-10-08] MEDS: Lisinopril 20 MG TAB PO SCH (08:57)
[2017-10-08] MEDS: Ferrous Sulfate 325 MG TAB PO SCH ×2 (08:58→18:39)
[2017-10-08] MEDS: Amiodarone 200 MG TAB PO SCH ×2 (08:58→20:50)
[2017-10-08] MEDS: Famotidine 20 MG TAB PO SCH (08:59)
[2017-10-08] MEDS: Enoxaparin Sodium 80 MG/0.8 ML SYRINGE SC SCH ×2 (08:59→20:51)
[2017-10-08 10:43] LABS: Anion Gap 13 mmol/L (10-20); BUN (Urea Nitrogen) 39 mg/dL (9.8-20.1); Calc. Creatinine Clearance 43 mL/min (70-130); Calcium 9.1 mg/dL (7.8-10.44); Carbon Dioxide 29 mmol/L (23-31); Chloride 99 mmol/L (98-107); Estimated GFR-MDRD 41; Glucose 150 mg/dL (83-110); Potassium 3.3 mmol/L (3.5-5.1); Sodium 138 mmol/L (136-145)
--- NOTE | 2017-10-08 12:53 | PDOC.PN ---
- Subjective Encounter Start Date: 10/08/17 Encounter Start Time: 09:30 Patient is seen today, alert and oriented. her breathing is improved, she feels dizzy persistently on standing. - Objective Resuscitation Status: Resuscitation Status FULL:Full Resuscitation MAR Reviewed: Yes Vital Signs & Weight: Vital Signs (12 hours) Temp Pulse Resp BP BP Pulse Ox 10/08/17 08:57 166/95 H 10/08/17 03:54 98.0 F 80 18 176/78 H 10/08/17 02:48 93 L Weight Admit Weight 180 lb 1.6 oz Weight 178 lb 8 oz I&O: 10/07/17 10/08/17 10/09/17 06:59 06:59 06:59 Intake Total 1050 535 Output Total 950 450 Balance 100 85 Result Diagrams: 10/07/17 07:03 10/08/17 10:13 Additional Labs: Accuchecks 10/08/17 10/08/17 10/07/17 10:33 06:22 20:05 POC Glucose 165 H 135 H 194 H 10/07/17 15:40 POC Glucose 173 H Phys Exam - Physical Examination HEENT: PERRLA, moist MMs Neck: no nodes, no JVD Respiratory: no wheezing, no rales Cardiovascular: RRR, no significant murmur Gastrointestinal: soft, non-tender Musculoskeletal: no edema, pulses present Neurological: non-focal, normal sensation Psychiatric: normal affect, A&O x 3 Dx/Plan (1) Atrial fibrillation with RVR Code(s): I48.91 - UNSPECIFIED ATRIAL FIBRILLATION Status: Acute Comment: PT is on Coreg 12.5mg BID, rate is <100 today, NO palpitation, Echo showed poor EF 25-30, and severe Mitral Regurgitatoion. Planned for Amiodarone today, and NAUN and Cardiovertion is few days, Follow cardiology. (2) Acute systolic CHF (congestive heart failure) Code(s): I50.21 - ACUTE SYSTOLIC (CONGESTIVE) HEART FAILURE Status: Acute Comment: Worsening BNP noted, pt is Started on IV lasix, showed Wordsening renal fucntions, likely Cadiorenal. May need More diuresis.Improving (3) EVANS (acute kidney injury) Code(s): N17.9 - ACUTE KIDNEY FAILURE, UNSPECIFIED Status: Acute Comment: Likely Cardiorenal, Will follow clsoley, Avoid nephrotoxic meds. (4) DM type 2 (diabetes mellitus, type 2) Status: Acute Comment: Well controlled, Continue Home MEds, Hold Metformin. SSI, keep BG 140-180. - Plan cont current plan of care, plan discussed w/ family, PT/OT, social media project manager, incentive spirometry, DVT proph w/lovenox * . - Discharge Day Encounter end time: 10:00 Review of Systems - Review of Systems Constitutional: negative: fever, chills, sweats, weakness, malaise, other Eyes: negative: Pain, Vision Change, Conjunctivae Inflammation, Eyelid Inflammation, Redness, Other ENT: negative: Ear Pain, Ear Discharge, Nose Pain, Nose Discharge, Nose Congestion, Mouth Pain, Mouth Swelling, Throat Pain, Throat Swelling, Other Respiratory: negative: Cough, Dry, Shortness of Breath, Hemoptysis, SOB with Excertion, Pleuritic Pain, Sputum, Wheezing Cardiovascular: light headedness Gastrointestinal: negative: Nausea, Vomiting, Abdominal Pain, Diarrhea, Constipation, Melena, Hematochezia, Other Genitourinary: negative: Dysuria, Frequency, Incontinence, Hematuria, Retention , Other - Medications/Allergies Allergies/Adverse Reactions: Allergies Allergy/AdvReac Type Severity Reaction Status Date / Time No Known Allergies Allergy Verified 12/01/14 17:16 Medications: Current Medications Acetaminophen (Tylenol) 650 mg PO Q4H PRN PRN Reason: Headache/Fever or Pain Last Admin: 10/04/17 22:14 Dose: 650 mg Hydrocodone Bitart/Acetaminophen ([place] 7.5/325) 1 tab PO Q4H PRN PRN Reason: Moderate Pain (4-6) Last Admin: 10/05/17 17:44 Dose: 1 tab Amiodarone HCl (Cordarone) 200 mg PO BID [facility] Last Admin: 10/08/17 08:58 Dose: 200 mg Carvedilol (Coreg) 6.25 mg PO BID-[facility] Last Admin: 10/08/17 08:57 Dose: 6.25 mg Dextrose/Water (Dextrose 50%) 25 gm SLOW IVP PRN PRN PRN Reason: Hypoglycemia Ezetimibe (Zetia) 10 mg PO HS [facility] Last Admin: 10/07/17 20:11 Dose: 10 mg Enoxaparin Sodium (Lovenox) 80 mg SC 0900,2100 [facility] Last Admin: 10/08/17 08:59 Dose: 80 mg Famotidine (Pepcid) 20 mg PO 0900 [facility] Last Admin: 10/08/17 08:59 Dose: 20 mg Ferrous Sulfate (Feosol) 325 mg PO BID-[facility] Last Admin: 10/08/17 08:58 Dose: 325 mg Furosemide (Lasix) 20 mg SLOW IVP 0600,1400 [facility] Last Admin: 10/08/17 05:38 Dose: 20 mg Glucagon (Glucagon) 1 mg IM PRN PRN PRN Reason: Hypoglycemia Dextrose/Water (D5w) 1,000 mls @ 0 mls/hr IV .Q0M PRN; As Directed PRN Reason: Hypoglycemia Insulin Human Lispro (Humalog) 0 units SC .MODERATE SLIDING SC PRN PRN Reason: Moderate Correctional Scale Last Admin: 10/06/17 11:45 Dose: 2 unit Lisinopril (Zestril) 20 mg PO DAILY [facility] Last Admin: 10/08/17 08:57 Dose: 20 mg Nitroglycerin (Nitrostat) 0.4 mg PO Q5MIN PRN PRN Reason: Chest Pain Ondansetron HCl (Zofran) 4 mg IVP Q6H PRN PRN Reason: Nausea/Vomiting Pantoprazole Sodium (Protonix) 40 mg PO BID [facility] Last Admin: 10/08/17 08:58 Dose: 40 mg Sertraline HCl (Zoloft) 25 mg PO DAILY [facility] Last Admin: 10/08/17 08:58 Dose: 25 mg Simvastatin (Zocor) 40 mg PO HS [facility] Last Admin: 10/07/17 20:11 Dose: 40 mg Sodium Chloride (Flush - Normal Saline) 10 ml IVF Q12HR [facility] Last Admin: 10/08/17 09:01 Dose: 10 ml Sodium Chloride (Flush - Normal Saline) 10 ml IVF PRN PRN PRN Reason: Saline Flush Last Admin: 10/08/17 05:38 Dose: 10 ml
[2017-10-08] MEDS: HumaLOG 300 UNITS/3 ML VIAL SC PRN (13:08)
[2017-10-08] MEDS ORDERED: Potassium Chloride 20 MEQ TAB PO SCH (14:00)
[2017-10-08] MEDS: Simvastatin 40 MG TAB PO SCH (20:49)
[2017-10-08] MEDS: Ezetimibe 10 MG TAB PO SCH (20:51)
[2017-10-09 05:32] LABS: #Eosinphils 0.1 thou/uL (0.0-0.7); #Lymphocytes 1.9 thou/uL (1.20-3.40); #Monocytes 1.1 thou/uL (0.11-0.59); %Basophils 0.1 % (0.0-1.0); %Eosinophils 1.7 % (0.0-10.0); %Lymphocytes 23.8 % (21.0-51.0); %Monocytes 12.9 % (0.0-10.0); %Neutrophils 61.6 % (42.0-75.0); Hemoglobin 9.5 g/dL (12.0-16.0); Mean Corpuscular HGB CONC 30.9 g/dL (32.0-36.0); Mean Corpuscular Hemoglobin 30.7 pg (27.0-31.0); Mean Corpuscular Volume 99.3 fl (81.0-99.0); Mean Platelet Volume 7.8 fL (7.4-10.4); Platelet Count 285 thou/uL (130-400); RBC Distribution Width 14.9 % (11.5-14.5); Red Blood Cell (RBC) Count 3.08 mill/uL (4.20-5.40); White Blood Cell (WBC) Count 8.2 thou/uL (4.8-10.8)
[2017-10-09] MEDS: Furosemide 20 MG/2 ML VIAL SLOW IVP SCH ×2 (07:40→18:01)
[2017-10-09 07:45] LABS: Hemoglobin 9.1 g/dL (12.0-16.0); Platelet Count 286 thou/uL (130-400)
--- NOTE | 2017-10-09 08:28 | PDOC.PN ---
- Subjective Encounter Start Date: 10/09/17 Encounter Start Time: 08:28 Subjective: nsg notes rev, keith ovn, no new c/o, still has dizziness with standing and -: ambulation which has been ongoing for months. overall feels weak with stand -: and ambulation which is actually better in the last two days. hoping to avoid any need for surgery. no new c/o - Objective Resuscitation Status: Resuscitation Status FULL:Full Resuscitation Vital Signs & Weight: Vital Signs (12 hours) Temp Pulse Resp BP BP Pulse Ox 10/09/17 03:14 98.2 F 83 16 143/78 H 96 10/09/17 00:00 98.5 F 70 17 152/74 H 94 L 10/08/17 20:50 187/87 H Weight Admit Weight 180 lb 1.6 oz Weight 175 lb 4.8 oz I&O: 10/08/17 10/09/17 10/10/17 06:59 06:59 06:59 Intake Total 535 260 Output Total 450 400 Balance 85 -140 Result Diagrams: 10/09/17 07:15 10/09/17 04:30 Additional Labs: Accuchecks 10/09/17 10/08/17 10/08/17 05:51 19:42 16:20 POC Glucose 134 H 213 H 121 H 10/08/17 10:33 POC Glucose 165 H Phys Exam - Physical Examination Constitutional: NAD HEENT: PERRLA, sclera anicteric slightly dry mm Neck: no nodes Respiratory: no wheezing, no rales, no rhonchi, clear to auscultation bilateral limited ant exam Cardiovascular: no significant murmur, no rub irreg irreg Gastrointestinal: soft, no distention, positive bowel sounds Musculoskeletal: no edema, pulses present Neurological: moves all 4 limbs Psychiatric: normal affect, A&O x 3 Skin: cap refill <2 seconds Dx/Plan - Plan 81F hx chronic renal insufficiency, CAD s/p PCI who p/w SOB * afib with RVR * apprec card c/s * currently on amiodarone 200mg Po BID, carvedilol 6.25mg Po TID * telemetry monitoring sev MR, TR * noted on ECHO acute systolic CHF exac * EF 25-30% noted on ECHO during this hospitalization * lasix 20mg IV BID with BMP in AM * close monitoring of I/O difficult as patient not using hat * recheck BMP on AM elev cr on adm c/w EVANS * suspected cardiorenal hypoperfusion etiology * improved with diuresis consistent w/above * continue to monitor c/o dizziness * possibly related to the above * will need to work with PT/ OT as able DM2 * home metformin held pending stabilization of renal dysfxn noted on adm * SSI htn, stable hld, stable diet: cardiac activity: as tolerated Review of Systems - Medications/Allergies Allergies/Adverse Reactions: Allergies Allergy/AdvReac Type Severity Reaction Status Date / Time No Known Allergies Allergy Verified 12/01/14 17:16 Medications: Current Medications Acetaminophen (Tylenol) 650 mg PO Q4H PRN PRN Reason: Headache/Fever or Pain Last Admin: 10/04/17 22:14 Dose: 650 mg Hydrocodone Bitart/Acetaminophen ([place] 7.5/325) 1 tab PO Q4H PRN PRN Reason: Moderate Pain (4-6) Last Admin: 10/05/17 17:44 Dose: 1 tab Amiodarone HCl (Cordarone) 200 mg PO BID [facility] Last Admin: 10/08/17 20:50 Dose: 200 mg Carvedilol (Coreg) 6.25 mg PO TID [facility] Last Admin: 10/08/17 20:50 Dose: 6.25 mg Dextrose/Water (Dextrose 50%) 25 gm SLOW IVP PRN PRN PRN Reason: Hypoglycemia Ezetimibe (Zetia) 10 mg PO HS [facility] Last Admin: 10/08/17 20:51 Dose: 10 mg Enoxaparin Sodium (Lovenox) 80 mg SC 0900,2100 [facility] Last Admin: 10/08/17 20:51 Dose: 80 mg Famotidine (Pepcid) 20 mg PO 0900 [facility] Last Admin: 10/08/17 08:59 Dose: 20 mg Ferrous Sulfate (Feosol) 325 mg PO BID[facility] Last Admin: 10/08/17 18:39 Dose: 325 mg Furosemide (Lasix) 20 mg SLOW IVP 0600,1400 [facility] Last Admin: 10/09/17 07:40 Dose: 20 mg Glucagon (Glucagon) 1 mg IM PRN PRN PRN Reason: Hypoglycemia Dextrose/Water (D5w) 1,000 mls @ 0 mls/hr IV .Q0M PRN; As Directed PRN Reason: Hypoglycemia Insulin Human Lispro (Humalog) 0 units SC .MODERATE SLIDING SC PRN PRN Reason: Moderate Correctional Scale Last Admin: 10/08/17 13:08 Dose: 2 unit Lisinopril (Zestril) 20 mg PO DAILY [facility] Last Admin: 10/08/17 08:57 Dose: 20 mg Nitroglycerin (Nitrostat) 0.4 mg PO Q5MIN PRN PRN Reason: Chest Pain Ondansetron HCl (Zofran) 4 mg IVP Q6H PRN PRN Reason: Nausea/Vomiting Pantoprazole Sodium (Protonix) 40 mg PO BID [facility] Last Admin: 10/08/17 20:50 Dose: 40 mg Sertraline HCl (Zoloft) 25 mg PO DAILY [facility] Last Admin: 10/08/17 08:58 Dose: 25 mg Simvastatin (Zocor) 40 mg PO HS [facility] Last Admin: 10/08/17 20:49 Dose: 40 mg Sodium Chloride (Flush - Normal Saline) 10 ml IVF Q12HR [facility] Last Admin: 10/08/17 20:53 Dose: 10 ml Sodium Chloride (Flush - Normal Saline) 10 ml IVF PRN PRN PRN Reason: Saline Flush Last Admin: 10/08/17 05:38 Dose: 10 ml
[2017-10-09] MEDS: Lisinopril 20 MG TAB PO SCH (09:34)
[2017-10-09] MEDS: Famotidine 20 MG TAB PO SCH (09:34)
[2017-10-09] MEDS: Ferrous Sulfate 325 MG TAB PO SCH ×2 (09:35→18:00)
[2017-10-09] MEDS: Amiodarone 200 MG TAB PO SCH (09:35)
[2017-10-09] MEDS: Carvedilol 6.25 MG TAB PO SCH ×2 (09:35→18:13)
[2017-10-09] MEDS: Enoxaparin Sodium 80 MG/0.8 ML SYRINGE SC SCH ×2 (09:35→21:45)
[2017-10-09] MEDS ORDERED: Lidocaine 1% (PF) 30 ML VIAL ONE (12:51)
[2017-10-09] MEDS ORDERED: Propofol 1,000 MG/100 ML VIAL IV ONE (14:03)
[2017-10-09] MEDS ORDERED: Diprivan 40 ML ONE (14:10)
[2017-10-09] MEDS ORDERED: Heparin 10,000 UNITS/1 ML VIAL ONE (15:23)
[2017-10-09] MEDS ORDERED: Fentanyl 100 MCG/2 ML VIAL ONE (15:24)
[2017-10-09] MEDS ORDERED: DOPamine 400 MG/D5W 250 ML 250 ML ONE (15:42)
[2017-10-09] MEDS ORDERED: Propofol 200 MG/20 ML VIAL ONE (15:46)
[2017-10-09] MEDS ORDERED: Glycopyrrolate 0.2 MG/ML 5 ML SYRINGE ONE (15:46)
[2017-10-09] MEDS ORDERED: PHENYLEPHRINE-NS 100 MCG/ML 10 ML SYRINGE ONE ×2 (15:46→15:53)
[2017-10-09] MEDS ORDERED: Promethazine HCl 25 MG/ML VIAL IM PRN (17:03)
[2017-10-09] MEDS ORDERED: Promethazine HCl 25 MG/ML VIAL SLOW IVP PRN (17:03)
[2017-10-09] MEDS ORDERED: Ondansetron HCl/PF 4 MG/2 ML Vial IVP PRN ×2 (17:03→17:07)
[2017-10-09] MEDS ORDERED: diphenhydrAMINE 25 MG CAP PO PRN (17:07)
[2017-10-09] MEDS ORDERED: Nitroglycerin 0.4 MG TAB (25 Tab Bottle) SL PRN (17:07)
[2017-10-09] MEDS ORDERED: Bisacodyl 10 MG SUPP PR PRN (17:07)
[2017-10-09] MEDS ORDERED: Mag-Al 1200 mg/1200 mg/30 ML UDCUP PO PRN (17:07)
[2017-10-09] MEDS ORDERED: Silver Sulfadiazine 1% Cream 50 GM JAR TOP PRN (17:07)
[2017-10-09] MEDS ORDERED: Acetaminophen 325 MG TAB PO PRN (17:07)
[2017-10-09] MEDS ORDERED: traMADol HCl 50 MG TAB PO PRN (17:07)
[2017-10-09] MEDS ORDERED: Bisacodyl 5 MG TAB PO PRN (17:07)
[2017-10-09] MEDS ORDERED: Temazepam 15 MG CAP PO PRN (17:07)
[2017-10-09] MEDS: Ezetimibe 10 MG TAB PO SCH (21:45)
[2017-10-09] MEDS: Carvedilol 3.125 MG TAB PO SCH (21:45)
[2017-10-09] MEDS: Simvastatin 40 MG TAB PO SCH (21:46)
[2017-10-10 04:58] LABS: Anion Gap 13 mmol/L (10-20); BUN (Urea Nitrogen) 16 mg/dL (9.8-20.1); Calc. Creatinine Clearance 64 mL/min (70-130); Calcium 8.3 mg/dL (7.8-10.44); Carbon Dioxide 28 mmol/L (23-31); Chloride 101 mmol/L (98-107); Estimated GFR-MDRD 65; Glucose 127 mg/dL (83-110); Potassium 3.1 mmol/L (3.5-5.1); Sodium 139 mmol/L (136-145)
[2017-10-10] MEDS: Furosemide 20 MG/2 ML VIAL SLOW IVP SCH ×2 (05:28→13:45)
--- NOTE | 2017-10-10 06:37 | CON ---
DATE OF CONSULATION: 10/09/2017 ELECTROPHYSIOLOGY CONSULTATION REPORT REFERRING PHYSICIAN: Jorgito Tilley M.D. ASSESSMENT AND PLAN: Ms. Deng is an 81-year-old female with prior history of coronary artery disease, prior mild LV dysfunction, presented with CHF exacerbation and severe reduced LV function. She was placed on amiodarone which eventually converted to sinus rhythm but also then recurrent atrial flutter was noted which appears to be atypical, isthmus dependent. I was consulted for further management by Dr. Tilley. Currently, she is feeling fair. Her dyspnea has improved which was the presenting symptom. She denies palpitations, dizziness or loss of consciousness. No chest pains. No fever, chills or cough. She is sufficiently diuresed. No PND, orthopnea. Rest of 12-point system is otherwise unremarkable. PAST MEDICAL HISTORY: As above, also chronic anemia, history of gastric ulcer disease, hypertension, coronary artery disease with prior stents are noted. Type 2 diabetes, GERD, chronic renal insufficiency. PAST SURGICAL HISTORY: Significant for , appendectomy, hernia repair, cholecystectomy, cataract surgery. SOCIAL HISTORY: The patient is a , has 3 grown children. 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 Denies ETOH or drug abuse. FAMILY HISTORY: Significant for father of heart attack at old age. Mother had stomach cancer. Sister of ovarian cancer. OBJECTIVE DATA: VITAL SIGNS: Blood pressure 149/77, heart rate 98, respirations 18, temperature 98 degrees Fahrenheit. GENERAL: She is an alert and oriented woman in no apparent distress. NECK: Supple. Jugular veins are not distended. CHEST: Coarse without crackles. CARDIAC: Heart sounds are irregularly irregular. S1 and S2 variable. No murmur or gallop. ABDOMEN: Benign. Bowel sounds positive. EXTREMITIES: Lower extremities without edema, clubbing or cyanosis. Pulses are adequate. NEUROLOGIC: Patient is nonfocal. MUSCULOSKELETAL: No joint swelling or deformities. SKIN: Without rash. DATABASE: The telemetry strips with EKG initially from 10/04/2017 reveals atrial fibrillation . There is also left axis deviation is seen. Occasional PVCs. Subsequent EKGs. Telemetry strips reveals conversion to sinus rhythm, then occurrence of typically appearing atrial flutter is seen. EKG from 10/09/2017 shows a rate of 85 beats per minute with typically- appearing atrial flutter. LABORATORY DATA: White count 8.2, hemoglobin 9.5, platelet count is 285. Sodium 138, potassium 3.3, BUN is 3.9, creatinine 1.26. Initial BNP was 486 increasing to 1669 subsequent day. The peak creatinine is 1.6. The troponin I is in the low range 0.028 to 0.036 range. ASSESSMENT AND PLAN: Ms. Deng is a pleasant 81-year-old female with history of coronary artery disease, prior stents and reduced left ventricular function in the past. She presented with acute on chronic congestive heart failure exacerbation which was possibly provoked by the atrial fibrillation with rapid rate. Her left ventricular ejection fraction was also found to be more depressed than before in the 25-30% range. Eventually, the amiodarone was initiated by Dr. Tilley and the patient has converted back to sinus rhythm, but then atrial flutter was observed. PLAN: The atrial flutter appears to be typical appearing and isthmus dependent in morphology. It would be reasonable to proceed with ablation. Prior to the ablation, might be a consultation to perform a NAUN to rule out intracardiac clot. I discussed these plans with the patient and his family. They understand the difference between atrial flutter and the right-sided ablation benefits which likely will eliminate atrial flutter and hopefully will keep her in sinus rhythm. On the other hand, she might require still antiarrhythmic agents to suppress atrial fibrillation. For now, amiodarone is reasonable, although monitoring for bradycardia and potential side effects of amiodarone will be necessary. Longer term, she could be a candidate for pacing therapy versus alternative antiarrhythmic agents. If LVEF does not improve, ICD therapy also could be considered. For now, we will proceed with the ablation procedure. Risks, benefits detailed with the family, understanding chance of stroke, bleeding and recurrence of tamponade. Thank you again for allowing me to participate in the care of this patient. NORMAN
--- NOTE | 2017-10-10 06:50 | CCLSPC ---
DATE OF PROCEDURE: 10/09/2017 ELECTROPHYSIOLOGY STUDY AND RADIOFREQUENCY ABLATION REPORT REFERRING PHYSICIAN: Dr. Jorgito Tilley. REASON FOR PROCEDURE: Ms. Deng is an 81-year-old female with history of coronary artery disease presenting with new onset congestive heart failure and found to be in atrial fibrillation with rapid rate. She was diuresed and amiodarone was started. Subsequently, she converted to sinus rhythm, but then had recurrent atrial flutter with rapid rate. LVEF again was found to be reduced from the prev ious 40%-45% to 25%-30%. The patient underwent NAUN prior to the procedure demonstrated no intracardiac clots on Lovenox since admission. DESCRIPTION OF PROCEDURE: The patient received deep sedation per Anesthesia specialist. After adequ ate level of sedation achieved, the right femoral venous area was prepped, draped and anesthetized us ing subcutaneous lidocaine and with ultrasound guidance, the femoral vein was accessed x2 and two 8-F rench short sheath was introduced. Through this, a decapolar CS catheter was advanced to the right v entricular His bundle and right atrial position. Eventually this stayed in the CS with pacing, mappi ng and recording was performed on each location. The initial presenting flutter was typical appearin g with CS activation proximal to distal, CS proximal pacing was near the tachycardia cycle length, it was about 270 milliseconds. Further overdrive pacing maneuvers though progress the patient into atrial fibrillation. A 150 mg IV amiodarone was also given to the patient during the procedure. Eventually, cardioversion was perfor med and while patient was maintaining sinus rhythm, we completed the cavotricuspid isthmus ablation. The cavotricuspid isthmus time prolonged from the initial 40 milliseconds to 130 milliseconds and th e transisthmus time was longest by the ablation line suggestive of unidirectional block. Following t hat, occasional tachycardia still seen, but atypical atrial flutter was not noted. Following that, basic EP study was performed, QRS duration 161 milliseconds, QT 408, AH 165, HV 43 mi lliseconds, sinus cycle length was about 1200 milliseconds during sedation. The sinus node recovery time after 500 milliseconds of pacing was 2432 milliseconds, corrected sinus node recovery time was a bout 1200 milliseconds. The AV block was 540 milliseconds. Dopamine was administered and the cavotricuspid line was rechecked assuring lasting patency. CONCLUSION: 1. Typical appearing cavotricuspid isthmus dependent flutter at baseline with cycle lengths at 230 m illiseconds variable AV block. 2. Overdrive pacing introduced atrial fibrillation, requiring cardioversion. 3. Cavotricuspid isthmus ablation produces CTI block. 4. Markedly prolonged sinus node recovery time post-ablation along with moderately elevated [place]keba ch cycle length. 5. The cardiac silhouette did not change from pre to post-procedure. POS: LEONID
--- NOTE | 2017-10-10 07:32 | EKG ---
Test Reason : Blood Pressure : / mmHG Vent. Rate : 085 BPM Atrial Rate : 286 BPM P-R Int : 000 ms QRS Dur : 142 ms QT Int : 424 ms P-R-T Axes : 000 042 212 degrees QTc Int : 504 ms Atrial flutter with variable A-V block Left bundle branch block Abnormal ECG When compared with ECG of 04-OCT-2017 09:11, Atrial flutter has replaced Atrial fibrillation Left bundle branch block has replaced Incomplete left bundle branch block Confirmed by DR. Truong CORADO ([id number]) on 10/10/2017 7:31:31 AM Referred By: JAC Confirmed By:DR. Truong CORADO
[2017-10-10] MEDS ORDERED: Potassium Chloride 20 MEQ TAB PO SCH (08:30)
[2017-10-10] MEDS: Enoxaparin Sodium 80 MG/0.8 ML SYRINGE SC SCH (09:11)
[2017-10-10] MEDS: Apixaban 5 MG TAB PO SCH ×2 (09:11→21:00)
[2017-10-10] MEDS: Lisinopril 20 MG TAB PO SCH (09:11)
[2017-10-10] MEDS: Carvedilol 3.125 MG TAB PO SCH ×2 (09:11→21:00)
[2017-10-10] MEDS: Famotidine 20 MG TAB PO SCH (09:13)
[2017-10-10] MEDS: Ferrous Sulfate 325 MG TAB PO SCH ×2 (09:13→16:33)
[2017-10-10] MEDS: Amiodarone 200 MG TAB PO SCH (09:13)
--- NOTE | 2017-10-10 09:57 | PRG ---
DATE OF SERVICE: 10/10/2017 ELECTROPHYSIOLOGY FOLLOW UP NOTE SUBJECTIVE: Ms. Deng seems to be feeling much better today, one day after her CTI ablation proce katia. OBJECTIVE: VITAL SIGNS: Blood pressure is 124/72, heart rate 62, respirations 16, temperature 98 degrees Fahren heit. GENERAL: Alert and oriented woman in no apparent distress. NECK: Supple. Jugular veins not distended. CHEST: Coarse without crackles. CARDIOVASCULAR: Heart sounds are regular to rate and rhythm. No murmur or gallop. ABDOMEN: Benign. Bowel sounds positive. EXTREMITIES: Lower extremities without edema, clubbing or cyanosis. LABORATORY DATA: White count 8.2, hemoglobin 9.5, platelet count is 285. Sodium 139, potassium 3.1, BUN is 16, creatinine 0.84. The telemetry strips reveals sinus rhythm. Telemetry strips also reveal a 22 beat run of idioventric ular rhythm less than 100 beats per minute. ASSESSMENT AND PLAN: Ms. Deng is an 81-year-old woman with prior history of coronary disease wit h remote stents and also had history of LV dysfunction in the past, which got much worse on this admi ssion to a 25-30% range. She was though found to be in atrial fibrillation with rapid rates, which m ight have contributed to this. Amiodarone was started, but that although initially suppressed atrial fibrillation, but then the atrial arrhythmias recurred. Now, the typical atrial flutter. She under went NAUN guided CTI ablation by me yesterday. 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 Hence the evident sinu s vianney dysfunction also noted during the EP study. I have decreased carvedilol from 6.25 to 3.125 m g twice a day, plus amiodarone was decreased down to 200 mg a day. Currently, she appears stable one day after her procedure. She was starting Eliquis as per Dr. Tilley's order, which I strongly agr ee. She might benefit from LifeVest therapy as Dr. Tilley already ordered. In the interim, while we are waiting for stabilization of her cardiac function. Outpatient followup will be requested in 6-8 weeks. Continue Eliquis and lower dose of amiodarone an d carvedilol. Monitor for bradyarrhythmias. This was discussed with her, Dr. Tilley and her nurse. Thank you for allowing me to participate in the care of this patient.
--- NOTE | 2017-10-10 10:05 | ECHO ---
REASON FOR PROCEDURE: The patient is an 81-year-old female patient who presents atrial fibrillation requiring amiodarone th erapy for suppression eventually returned to sinus rhythm, but then recurrent atrial flutter is seen. She is presenting with CHF exacerbation initially LVEF found to be reduce. PROCEDURE: The patient received propofol by Anesthesia specialist. After adequate level of sedation achieved, a standard transesophageal echocardiogram probe was advanced without difficulty. The patient tolerat ed the procedure were no complication was noted. RESULTS: The left atrium is enlarged about 4.7 cm in horizontal diameter. Left atrial appendage is well visual ized contains no clot, but an appendage velocities are reduced to 20-30 cm per second. Four pulmonary veins were seen without flow reversal. The interatrial septum was free of defect. Mi tral valve has moderate regurgitation with, multicentric jets seen. The left ventricular function i s reduced to moderate degree for detection of wall motion abnormalities. No pericardial effusion see n . The right sided chambers are nondilated. Mild tricuspid regurgitation noted. Aortic valve has 2 leaflets are sclerotic, but nonstenotic. No significant regurgitation or stenosis seen. Pulmonary valve does not visualized. The visualized portion of the ascending and descending aorta is without aneurysm or dissection,. Adherent atheroma seen in the descending aorta. CONCLUSION: 1. No intracardiac clots. 2. Moderately reduced left ventricular systolic function. 3. Moderate mitral regurgitation seen. PLAN: 1. Proceed with flutter ablation.
[2017-10-10 13:07] VITALS: BMI 33.1
[2017-10-10] MEDS: HumaLOG 300 UNITS/3 ML VIAL SC PRN (17:54)
--- NOTE | 2017-10-10 18:53 | EKG ---
Test Reason : Blood Pressure : / mmHG Vent. Rate : 068 BPM Atrial Rate : 068 BPM P-R Int : 204 ms QRS Dur : 138 ms QT Int : 504 ms P-R-T Axes : 076 014 -77 degrees QTc Int : 535 ms Normal sinus rhythm with sinus arrhythmia Left ventricular hypertrophy with QRS widening and repolarization abnormality Abnormal ECG When compared with ECG of 09-OCT-2017 11:01, (Unconfirmed) Sinus rhythm has replaced Atrial flutter Left bundle branch block is no longer Present Confirmed by DR. Truong CORADO ([id number]) on 10/10/2017 6:52:52 PM Referred By: Confirmed By:DR. Truong CORADO
[2017-10-10] MEDS: Ezetimibe 10 MG TAB PO SCH (21:00)
[2017-10-10] MEDS: Simvastatin 40 MG TAB PO SCH (21:01)
--- NOTE | 2017-10-10 23:17 | PDOC.PN ---
- Subjective Encounter Start Date: 10/10/17 Encounter Start Time: 16:00 Subjective: nsg notes rev, keith ovn, no new c/o s/p ablation feels overall better and -: wants to know when she can go home - Objective Resuscitation Status: Resuscitation Status FULL:Full Resuscitation Vital Signs & Weight: Vital Signs (12 hours) Temp Pulse Resp BP Pulse Ox 10/10/17 15:40 98.2 F 54 L 16 162/70 H 97 10/10/17 11:50 98.5 F 62 16 167/74 H 98 Weight Admit Weight 180 lb 1.6 oz Weight 175 lb 6.4 oz I&O: 10/09/17 10/10/17 10/11/17 06:59 06:59 06:59 Intake Total 260 480 600 Output Total 400 450 300 Balance -140 30 300 Result Diagrams: 10/09/17 07:15 10/10/17 04:04 Additional Labs: Accuchecks 10/10/17 10/10/17 10/10/17 20:24 16:25 11:19 POC Glucose 146 H 157 H 157 H 10/10/17 05:37 POC Glucose 124 H Phys Exam - Physical Examination Constitutional: NAD HEENT: PERRLA, moist MMs, sclera anicteric Respiratory: no wheezing, no rales, no rhonchi, clear to auscultation bilateral Cardiovascular: RRR, no significant murmur, no rub Gastrointestinal: soft, positive bowel sounds Musculoskeletal: pulses present Psychiatric: normal affect, A&O x 3 Dx/Plan - Plan * 81F hx chronic renal insufficiency, CAD s/p PCI who p/w SOB * afib with RVR initially rate ctrlled then developed atrial flutter * apprec EP c/s - currently s/p ablation, tolerated procedure well * awaiting Lifevest * apprec card c/s * currently on amiodarone 200mg PO daily, carvedilol 3.125mg Po TID * telemetry monitoring sev MR, TR * noted on ECHO acute systolic CHF exac * EF 25-30% noted on ECHO during this hospitalization * lasix 40mg PO daily with BMP in AM * close monitoring of I/O difficult as patient not using hat * recheck BMP on AM elev cr on adm c/w EVANS * suspected cardiorenal hypoperfusion etiology * improved with diuresis consistent w/above * continue to monitor c/o dizziness * possibly related to the above * will need to work with PT/ OT as able DM2 * home metformin held pending stabilization of renal dysfxn noted on adm * SSI htn, stable hld, stable diet: cardiac activity: as tolerated d/c planning: patient will need Lifevest and setup of HH and PT d/w patient at bedside Review of Systems - Medications/Allergies Allergies/Adverse Reactions: Allergies Allergy/AdvReac Type Severity Reaction Status Date / Time No Known Allergies Allergy Verified 12/01/14 17:16 Medications: Current Medications Acetaminophen (Tylenol) 650 mg PO Q4H PRN PRN Reason: Mild Pain 1-3 Hydrocodone Bitart/Acetaminophen ([place] 7.5/325) 1 tab PO Q4H PRN PRN Reason: Moderate Pain (4-6) Last Admin: 10/05/17 17:44 Dose: 1 tab Al Hydroxide/Mg Hydroxide (Maalox) 15 ml PO Q4H PRN PRN Reason: Heartburn or Indigestion Amiodarone HCl (Cordarone) 200 mg PO DAILY [facility] Last Admin: 10/10/17 09:13 Dose: 200 mg Apixaban (Eliquis) 5 mg PO BID [facility] Last Admin: 10/10/17 21:00 Dose: 5 mg Bisacodyl (Dulcolax) 5 mg PO DAILYPRN PRN PRN Reason: CONSTIAPT Last Admin: 10/10/17 05:28 Dose: 5 mg Bisacodyl (Dulcolax) 10 mg GA DAILYPRN PRN PRN Reason: Constipation Carvedilol (Coreg) 3.125 mg PO BID [facility] Last Admin: 10/10/17 21:00 Dose: 3.125 mg Dextrose/Water (Dextrose 50%) 25 gm SLOW IVP PRN PRN PRN Reason: Hypoglycemia Diphenhydramine HCl (Benadryl) 25 mg PO Q6H PRN PRN Reason: Itching Ezetimibe (Zetia) 10 mg PO HS [facility] Last Admin: 10/10/17 21:00 Dose: 10 mg Famotidine (Pepcid) 20 mg PO 0900 [facility] Last Admin: 10/10/17 09:13 Dose: 20 mg Ferrous Sulfate (Feosol) 325 mg PO BID[facility] Last Admin: 10/10/17 16:33 Dose: 325 mg Furosemide (Lasix) 20 mg SLOW IVP 0600,1400 [facility] Stop: 10/10/17 23:59 Last Admin: 10/10/17 13:45 Dose: 20 mg Furosemide (Lasix) 40 mg PO DAILY-AC [facility] Glucagon (Glucagon) 1 mg IM PRN PRN PRN Reason: Hypoglycemia Dextrose/Water (D5w) 1,000 mls @ 0 mls/hr IV .Q0M PRN; As Directed PRN Reason: Hypoglycemia Insulin Human Lispro (Humalog) 0 units SC .MODERATE SLIDING SC PRN PRN Reason: Moderate Correctional Scale Last Admin: 10/10/17 17:54 Dose: 2 unit Lisinopril (Zestril) 20 mg PO DAILY [facility] Last Admin: 10/10/17 09:11 Dose: 20 mg Nitroglycerin (Nitrostat) 0.4 mg SL Q5MIN PRN PRN Reason: Chest Pain Ondansetron HCl (Zofran) 4 mg IVP Q6H PRN PRN Reason: Nausea/Vomiting Pantoprazole Sodium (Protonix) 40 mg PO BID [facility] Last Admin: 10/10/17 21:01 Dose: 40 mg Potassium Chloride (Klor-Con 10) 10 meq PO QAM[facility] Sertraline HCl (Zoloft) 25 mg PO DAILY [facility] Last Admin: 10/10/17 09:13 Dose: 25 mg Silver Sulfadiazine (Silvadene) 0 gm TOP Q12H PRN PRN Reason: Rash/Topical Irritation Simvastatin (Zocor) 40 mg PO HS [facility] Last Admin: 10/10/17 21:01 Dose: 40 mg Sodium Chloride (Flush - Normal Saline) 10 ml IVF Q12HR [facility] Last Admin: 10/10/17 21:01 Dose: 10 ml Sodium Chloride (Flush - Normal Saline) 10 ml IVF PRN PRN PRN Reason: Saline Flush Last Admin: 10/08/17 05:38 Dose: 10 ml Temazepam (Restoril) 15 mg PO HSPRN PRN PRN Reason: Insomnia Tramadol HCl (Ultram) 50 mg PO Q4H PRN PRN Reason: FOR MODERATE PAIN 4-6
[2017-10-11 06:14] LABS: Anion Gap 11 mmol/L (10-20); BUN (Urea Nitrogen) 14 mg/dL (9.8-20.1); Calc. Creatinine Clearance 60 mL/min (70-130); Calcium 8.3 mg/dL (7.8-10.44); Carbon Dioxide 28 mmol/L (23-31); Chloride 100 mmol/L (98-107); Estimated GFR-MDRD 61; Glucose 102 mg/dL (83-110); Sodium 136 mmol/L (136-145)
[2017-10-11 06:36] LABS: Potassium 2.9 mmol/L (3.5-5.1)
[2017-10-11 06:58] LABS: Platelet Count 263 thou/uL (130-400)
[2017-10-11] MEDS ORDERED: Potassium Chloride 20 MEQ TAB PO SCH (07:00)
--- NOTE | 2017-10-11 08:15 | PDOC.PN ---
- Subjective Encounter Start Date: 10/11/17 Encounter Start Time: 08:14 Subjective: seen and examined feeling better - Objective Resuscitation Status: Resuscitation Status FULL:Full Resuscitation Vital Signs & Weight: Vital Signs (12 hours) Temp Pulse Resp BP Pulse Ox 10/11/17 08:00 97.9 F 61 16 94 L 10/11/17 04:31 97 10/11/17 04:00 98.2 F 61 16 166/73 H 97 Weight Admit Weight 180 lb 1.6 oz Weight 173 lb 4.8 oz I&O: 10/10/17 10/11/17 10/12/17 06:59 06:59 06:59 Intake Total 480 840 Output Total 450 450 Balance 30 390 Result Diagrams: 10/11/17 04:01 10/11/17 04:02 Additional Labs: Accuchecks 10/11/17 10/10/17 10/10/17 05:54 20:24 16:25 POC Glucose 124 H 146 H 157 H 10/10/17 11:19 POC Glucose 157 H Phys Exam - Physical Examination Constitutional: NAD HEENT: PERRLA, moist MMs, sclera anicteric, TM's clear, oral pharynx no lesions Neck: no nodes, no JVD, supple, full ROM Respiratory: no wheezing, no rales, no rhonchi, clear to auscultation bilateral Cardiovascular: RRR, no significant murmur, no rub Gastrointestinal: soft, non-tender, no distention, positive bowel sounds Musculoskeletal: no edema, pulses present Dx/Plan (1) EVANS (acute kidney injury) Code(s): N17.9 - ACUTE KIDNEY FAILURE, UNSPECIFIED Status: Acute Comment: Likely Cardiorenal, Will follow clsoley, Avoid nephrotoxic meds. (2) Acute systolic CHF (congestive heart failure) Code(s): I50.21 - ACUTE SYSTOLIC (CONGESTIVE) HEART FAILURE Status: Acute Comment: Worsening BNP noted, pt is Started on IV lasix, showed Wordsening renal fucntions, likely Cadiorenal. May need More diuresis.Improving (3) Atrial fibrillation with RVR Code(s): I48.91 - UNSPECIFIED ATRIAL FIBRILLATION Status: Acute Comment: PT is on Coreg 12.5mg BID, rate is <100 today, NO palpitation, Echo showed poor EF 25-30, and severe Mitral Regurgitatoion. Planned for Amiodarone today, and NAUN and Cardiovertion is few days, Follow cardiology. (4) DM type 2 (diabetes mellitus, type 2) Status: Acute Comment: Well controlled, Continue Home MEds, Hold Metformin. SSI, keep BG 140-180. (5) Anemia Code(s): D64.9 - ANEMIA, UNSPECIFIED Status: Acute (6) Ischemic cardiomyopathy Code(s): I25.5 - ISCHEMIC CARDIOMYOPATHY Status: Acute (7) Hypokalemia Code(s): E87.6 - HYPOKALEMIA Status: Acute - Plan cont current plan of care, plan discussed w/ family, PT/OT, public health social worker, respiratory therapy On Elliquis -: Increase lisinopril -: Replete potassium -: Will need life vest prior to D/c--outpt folow up with EP in 6-8wks * .
[2017-10-11] MEDS ORDERED: Lisinopril 20 MG TAB PO SCH (08:17)
[2017-10-11] MEDS: Ferrous Sulfate 325 MG TAB PO SCH ×2 (08:44→17:29)
[2017-10-11] MEDS: Apixaban 5 MG TAB PO SCH ×2 (08:44→21:25)
[2017-10-11] MEDS: Lisinopril 20 MG TAB PO SCH (08:44)
[2017-10-11] MEDS: Famotidine 20 MG TAB PO SCH (08:44)
[2017-10-11] MEDS: Amiodarone 200 MG TAB PO SCH (08:45)
[2017-10-11] MEDS: Carvedilol 3.125 MG TAB PO SCH ×2 (08:45→21:25)
[2017-10-11] MEDS: Spironolactone 25 MG TAB PO SCH (08:45)
[2017-10-11] MEDS: Potassium Chloride 10 MEQ TAB PO SCH (08:45)
[2017-10-11] MEDS: Furosemide 40 MG TAB PO SCH (08:45)
[2017-10-11] MEDS: Potassium Chloride 20 MEQ TAB PO SCH ×2 (08:46→17:30)
[2017-10-11] MEDS: Simvastatin 40 MG TAB PO SCH (21:25)
[2017-10-11] MEDS: Ezetimibe 10 MG TAB PO SCH (21:25)
[2017-10-12 06:07] LABS: Anion Gap 12 mmol/L (10-20); BUN (Urea Nitrogen) 14 mg/dL (9.8-20.1); Calc. Creatinine Clearance 63 mL/min (70-130); Calcium 8.8 mg/dL (7.8-10.44); Carbon Dioxide 27 mmol/L (23-31); Chloride 101 mmol/L (98-107); Estimated GFR-MDRD 63; Glucose 121 mg/dL (83-110); Potassium 4.4 mmol/L (3.5-5.1); Sodium 136 mmol/L (136-145)
--- NOTE | 2017-10-12 08:41 | PDOC.PN ---
- Subjective Encounter Start Date: 10/12/17 Encounter Start Time: 08:40 Subjective: Seen anfd examined feeling better - Objective Resuscitation Status: Resuscitation Status FULL:Full Resuscitation Vital Signs & Weight: Vital Signs (12 hours) Temp Pulse Resp BP Pulse Ox 10/12/17 04:00 98.3 F 61 18 159/70 H 98 10/12/17 00:00 98.3 F 64 17 165/72 H 94 L Weight Admit Weight 180 lb 1.6 oz Weight 178 lb 3.2 oz I&O: 10/11/17 10/12/17 10/13/17 06:59 06:59 06:59 Intake Total 840 876 Output Total 450 1460 Balance 390 -584 Result Diagrams: 10/11/17 04:01 10/12/17 03:55 Additional Labs: Accuchecks 10/12/17 10/11/17 10/11/17 06:14 21:25 16:19 POC Glucose 140 H 174 H 153 H 10/11/17 11:15 POC Glucose 168 H Phys Exam - Physical Examination Constitutional: NAD HEENT: PERRLA, moist MMs, sclera anicteric, TM's clear, oral pharynx no lesions Neck: no nodes, no JVD, supple, full ROM Respiratory: no wheezing, no rales, no rhonchi, clear to auscultation bilateral Cardiovascular: RRR, no significant murmur, no rub Gastrointestinal: soft, non-tender, no distention, positive bowel sounds Musculoskeletal: no edema, pulses present Dx/Plan (1) EVANS (acute kidney injury) Code(s): N17.9 - ACUTE KIDNEY FAILURE, UNSPECIFIED Status: Acute Comment: Likely Cardiorenal, Will follow clsoley, Avoid nephrotoxic meds. (2) Acute systolic CHF (congestive heart failure) Code(s): I50.21 - ACUTE SYSTOLIC (CONGESTIVE) HEART FAILURE Status: Acute Comment: Worsening BNP noted, pt is Started on IV lasix, showed Wordsening renal fucntions, likely Cadiorenal. May need More diuresis.Improving (3) Atrial fibrillation with RVR Code(s): I48.91 - UNSPECIFIED ATRIAL FIBRILLATION Status: Acute Comment: PT is on Coreg 12.5mg BID, rate is <100 today, NO palpitation, Echo showed poor EF 25-30, and severe Mitral Regurgitatoion. Planned for Amiodarone today, and NAUN and Cardiovertion is few days, Follow cardiology. (4) DM type 2 (diabetes mellitus, type 2) Status: Acute Comment: Well controlled, Continue Home MEds, Hold Metformin. SSI, keep BG 140-180. (5) Anemia Code(s): D64.9 - ANEMIA, UNSPECIFIED Status: Acute (6) Ischemic cardiomyopathy Code(s): I25.5 - ISCHEMIC CARDIOMYOPATHY Status: Acute (7) Hypokalemia Code(s): E87.6 - HYPOKALEMIA Status: Acute - Plan PT/OT, school social worker, respiratory therapy Dispo planning * .
[2017-10-12] MEDS: Amiodarone 200 MG TAB PO SCH (08:47)
[2017-10-12] MEDS: Famotidine 20 MG TAB PO SCH (08:48)
[2017-10-12] MEDS: Apixaban 5 MG TAB PO SCH (08:48)
[2017-10-12] MEDS: Potassium Chloride 10 MEQ TAB PO SCH (08:48)
[2017-10-12] MEDS: Spironolactone 25 MG TAB PO SCH (08:49)
[2017-10-12] MEDS: Furosemide 40 MG TAB PO SCH (08:49)
[2017-10-12] MEDS: Lisinopril 20 MG TAB PO SCH (08:49)
[2017-10-12] MEDS: Carvedilol 3.125 MG TAB PO SCH (08:50)
[2017-10-12] MEDS: Ferrous Sulfate 325 MG TAB PO SCH (08:56)
[2017-10-12] MEDS ORDERED: Aspirin 81 mg Enteric Coated Tablet PO SCH (09:00)
[2017-10-12] MEDS ORDERED: hydrALAZINE 25 MG TAB PO SCH (09:00)
[2017-10-12 18:35] VITALS: BP 158/70; TEMP 97.4
== END 2017-10-12 17:00 | disposition home health service (06) | DRG 273 ==
LOC: ERS 09:04 → ERHOLD 11:00 → 2NO 16:40
PROVIDERS: ADMIT Internal Medicine; ATTEND Internal Medicine
PROC: 02583ZZ Destruction of Conduction Mechanism, Percutaneous Approach (ICD-10-PCS; principal; 2017-10-09)
PROC: 4A023FZ Measurement of Cardiac Rhythm, Percutaneous Approach (ICD-10-PCS; 2017-10-09)
PROC: 4A0234Z Measurement of Cardiac Electrical Activity, Percutaneous Approach (ICD-10-PCS; 2017-10-09)
PROC: B24BZZ4 Ultrasonography of Heart with Aorta, Transesophageal (ICD-10-PCS; 2017-10-09)
PROC: 02K83ZZ Map Conduction Mechanism, Percutaneous Approach (ICD-10-PCS; 2017-10-09)
DX: I13.0 Hypertensive heart and chronic kidney disease with heart failure and stage 1 through stage 4 chronic kidney disease, or unspecified chronic kidney disease (principal); I50.23 Acute on chronic systolic (congestive) heart failure; N17.9 Acute kidney failure, unspecified; E11.22 Type 2 diabetes mellitus with diabetic chronic kidney disease; I48.3 Typical atrial flutter; I07.1 Rheumatic tricuspid insufficiency; I24.8 Other forms of acute ischemic heart disease; I45.89 Other specified conduction disorders; I25.5 Ischemic cardiomyopathy; I48.91 Unspecified atrial fibrillation; D64.9 Anemia, unspecified; E78.00 Pure hypercholesterolemia, unspecified; N18.9 Chronic kidney disease, unspecified; I25.10 Atherosclerotic heart disease of native coronary artery without angina pectoris; E87.6 Hypokalemia; Z95.5 Presence of coronary angioplasty implant and graft; K21.9 Gastro-esophageal reflux disease without esophagitis; I25.2 Old myocardial infarction; Z91.19 Patient's noncompliance with other medical treatment and regimen; I34.0 Nonrheumatic mitral (valve) insufficiency; Z87.11 Personal history of peptic ulcer disease
CPT/HCPCS: 36415; 36416; 71045; 76942; 80048; 80053; 80061; 82550; 82553; 82565; 83880; 84484; 85014; 85018; 85025; 85049; 93005; 93010; 93306; 93312; 93613; 93623; 93653; 94760; 96374; 96376; A4216; C1730; C1769; G8978-GP-CK; G8978-GP-CL; G8979-GP-CI; G8979-GP-CJ; G8987-GO-CJ; G8988-GO-CI; J0282; J1265; J1644; J1650; J1940; J2001; J2704; J3010; S0028

== ENCOUNTER 2017-11-03 20:03 | Inpatient (IN) | payer MEDICARE ==
[2017-11-03 20:45] LABS: #Eosinphils 0.1 thou/uL (0.0-0.7); #Lymphocytes 1.8 thou/uL (1.20-3.40); #Monocytes 0.9 thou/uL (0.11-0.59); #Neutrophils 9.4 thou/uL (1.40-6.50); %Basophils 0.1 % (0.0-1.0); %Eosinophils 0.6 % (0.0-10.0); %Lymphocytes 14.5 % (21.0-51.0); %Monocytes 7.6 % (0.0-10.0); %Neutrophils 77.2 % (42.0-75.0); Hemoglobin 6.4 g/dL (12.0-16.0); Mean Corpuscular HGB CONC 32.4 g/dL (32.0-36.0); Mean Corpuscular Hemoglobin 31.7 pg (27.0-31.0); Mean Corpuscular Volume 97.7 fl (81.0-99.0); Mean Platelet Volume 5.9 fL (7.4-10.4); Platelet Count 384 thou/uL (130-400); RBC Distribution Width 16.1 % (11.5-14.5); Red Blood Cell (RBC) Count 2.01 mill/uL (4.20-5.40); White Blood Cell (WBC) Count 12.2 thou/uL (4.8-10.8)
[2017-11-03 21:07] LABS: ALT (SGPT) 16 U/L (8-55); AST (SGOT) 16 U/L (5-34); Albumin 3.6 g/dL (3.4-4.8); Alkaline Phosphatase 49 U/L (40-150); Anion Gap 21 mmol/L (10-20); BUN (Urea Nitrogen) 27 mg/dL (9.8-20.1); Bilirubin, Total 0.7 mg/dL (0.2-1.2); CK (CPK) 15 U/L (29-168); Calc. Creatinine Clearance 0 mL/min (70-130); Calcium 9.3 mg/dL (7.8-10.44); Carbon Dioxide 21 mmol/L (23-31); Chloride 95 mmol/L (98-107); Estimated GFR-MDRD 40; Globulin 2.9 g/dL (2.4-3.5); Glucose 111 mg/dL (83-110); Lipase 39 U/L (8-78); Potassium 4.5 mmol/L (3.5-5.1); Protein, Total 6.5 g/dL (6.0-8.3); Sodium 132 mmol/L (136-145)
--- NOTE | 2017-11-03 21:08 | RAD ---
CHEST ONE VIEW: 11/03/17 COMPARISON: 11/02/17 HISTORY: Weakness and atrial fibrillation. FINDINGS: Atherosclerosis of the aorta. Enlarged cardiac silhouette. Pulmonary vessels and pulmonary hilum are normal. Costophrenic angles are clear. There are chronic changes, without consolidation or mass. No p neumothorax. No osseous abnormality. IMPRESSION: 1. Atherosclerosis. 2. Cardiomegaly. 3. No acute cardiopulmonary process. POS: PPP
[2017-11-03 21:10] LABS: CKMB 0.5 ng/mL (0-6.6); Troponin I Less than 0.010 ng/mL (< 0.028)
[2017-11-03] MEDS ORDERED: Pantoprazole 80 MG, Admixture Fee 1 EACH in Sodium Chloride 0.9% 100 ML IVP SCH ×4 (21:30)
[2017-11-03] MEDS ORDERED: Pantoprazole 40 MG VIAL ONE ×2 (22:07)
[2017-11-04] MEDS ORDERED: Ondansetron HCl/PF 4 MG/2 ML Vial IVP PRN (03:21)
[2017-11-04] MEDS ORDERED: Ondansetron ODT 4 MG TAB SL PRN (03:21)
[2017-11-04] MEDS ORDERED: HYDROcodone/Acetaminophen 5/325 mg Tablet PO PRN ×2 (03:21)
[2017-11-04] MEDS ORDERED: Acetaminophen 325 MG TAB PO PRN (03:21)
--- NOTE | 2017-11-04 06:11 | HP ---
PRIMARY CARE PHYSICIAN: Dr. Cain Sy CHIEF COMPLAINT: Dizziness and weakness. HISTORY OF PRESENT ILLNESS: Patient is a very pleasant 82-year-old female with recently diagnosed of atrial fibrillation, status post cardiac ablation on Eliquis, who presented with complaints of gener alized weakness and dizziness. The patient states that she has been noticing significant amount of w eakness for the past week. She also states that she also has been feeling some nausea; however, no v omiting. The patient states that today she tried to get up and got very dizzy and almost fell. Marleni ent denies losing any consciousness. Patient also states that she has been having significant dark s tools for the past week. The patient states that she has been taking her medications as prescribed. PAST MEDICAL HISTORY: 1. Chronic anemia. 2. History of gastric ulcer disease. 3. Hypertension. 4. Coronary artery disease, status post stents. 5. Type 2 diabetes. 6. GERD. 7. Chronic renal insufficiency. PAST SURGICAL HISTORY: 1. . 2. Appendectomy. 3. Hernia repair. 4. Cholecystectomy. 5. History of stent placement. 6. Cataract surgery. ALLERGIES: She has no known drug allergies. FAMILY HISTORY: Father of [place] at old age and mother had stomach cancer and sister from ovar rosangela cancer. SOCIAL HISTORY: Her granddaughter lives with her. She denies any alcohol or drug use. REVIEW OF SYSTEMS: Except for the ones mentioned in the HPI. The following complete review of systems was negative, unless otherwise mentioned in the HPI or below : Constitutional: Weight loss or gain, ability to conduct usual activities. Skin: Rash, itching. Eyes: Double vision, pain. ENT/Mouth: Nose bleeding, neck stiffness, pain, tenderness. Cardiovascular: Palpitations, dyspnea on exertion, orthopnea. Respiratory: Shortness of breath, wheezing, cough, hemoptysis, fever or night sweats. Gastrointestinal: Poor appetite, abdominal pain, heartburn, nausea, vomiting, constipation, or diarr hea. Genitourinary: Urgency, frequency, dysuria, nocturia. Musculoskeletal: Pain, swelling. Neurologic/Psychiatric: Anxiety, depression. Allergy/Immunologic: Skin rash, bleeding tendency. It was all mentioned in the HPI, all of it is negative. HOME MEDICATIONS: Are as the following: She takes aspirin 81 mg daily, Coreg 3.125 mg p.o. b.i.d., Pepcid 20 mg daily, ferrous sulfate 140 mg every 2 days, Lasix 40 mg daily, hydralazine 25 mg b.i.d., lisinopril 40 mg daily, metformin 500 mg p.o. t.i.d., Zoloft 25 mg daily, spironolactone 25 mg q.a.m . She also takes Eliquis 5 mg p.o. b.i.d. PHYSICAL EXAMINATION: VITAL SIGNS: Temperature 97.3, pulse of 80, 18, blood pressure is 150/69. She is 99% on room air. GENERAL: She is awake, alert, and oriented x3; however, does appear to be pale. HEENT: She has pale conjunctivae. Mucous membranes are intact. CARDIOVASCULAR: S1, S2 present. Patient's rhythm is regular. No murmurs, rubs or gallops noted. LUNGS: Clear to auscultation. No rhonchi, wheezes noted. ABDOMEN: Soft. Bowel sounds are present x2. She does have significant mild epigastric tenderness u murtaza palpation. EXTREMITIES: No edema. Pedal pulses are present x2. LABORATORY DATA: WBC of 12.2, hemoglobin of 6.4, hematocrit of 19.6, platelets of 384. Chemistry: Sodium of 132, potassium of 4.5, chloride of 95, BUN of 27, creatinine of 1.28. BNP mildly elevated at 116.8. Troponin initially was negative. She also had a chest x-ray, which did not indicate any a cute cardiopulmonary process. ASSESSMENT AND PLAN: The patient is a very pleasant 82-year-old female who presents to the hospital with dizziness. 1. Upper gastrointestinal bleed. We will start patient on Protonix 40 mg b.i.d., hold Eliquis and a spirin for now. We will consult GI. We will keep patient n.p.o. for now. We will start the patient on some IV hydration. We will transfuse blood as needed to keep hemoglobin greater than 7. We will admit the patient to the IMCU. Patient's Hemoccult was positive. 2. Anemia. I will check a reticulocyte count. We will also transfuse as needed to keep H and H gre ater than 7. 3. History of hypertension. She is currently mild hypotensive. We will continue to monitor. We wi ll be cautious in starting patient back on her blood pressure medications given her acute GI bleed. 4. Deep venous thrombosis prophylaxis. Patient on SCDs.
[2017-11-04] MEDS: Sodium Chloride 0.9% 1,000 ML IV SCH ×2 (06:16→17:34)
[2017-11-04 06:40] LABS: Band 4 % (5-11); Hemoglobin 7.1 g/dL (12.0-16.0); Hypochromia SLIGHT = 6-15 cells (100X) (0-5/hpf); Lymphocytes 13 % (21-51); MDiff Complete? YES; Mean Corpuscular HGB CONC 32.2 g/dL (32.0-36.0); Mean Corpuscular Volume 96.1 fl (81.0-99.0); Mean Platelet Volume 6.3 fL (7.4-10.4); Monocytes 19 % (0-10); Neutrophil 64 % (42-75); Nucleated RBC 1 % (0); PLT Morphology Comment Appears Adequate; Platelet Count 320 thou/uL (130-400); RBC Distribution Width 15.8 % (11.5-14.5); Red Blood Cell (RBC) Count 2.29 mill/uL (4.20-5.40); White Blood Cell (WBC) Count 10.3 thou/uL (4.8-10.8)
[2017-11-04 06:49] LABS: Albumin 3.3 g/dL (3.4-4.8); Alkaline Phosphatase 45 U/L (40-150); Anion Gap 12 mmol/L (10-20); BUN (Urea Nitrogen) 29 mg/dL (9.8-20.1); Bilirubin, Total 1.1 mg/dL (0.2-1.2); Calc. Creatinine Clearance 46 mL/min (70-130); Calcium 8.6 mg/dL (7.8-10.44); Carbon Dioxide 28 mmol/L (23-31); Chloride 99 mmol/L (98-107); Estimated GFR-MDRD 48; Globulin 2.5 g/dL (2.4-3.5); Glucose 109 mg/dL (83-110); Potassium 5.2 mmol/L (3.5-5.1); Protein, Total 5.8 g/dL (6.0-8.3); Sodium 134 mmol/L (136-145)
[2017-11-04 07:00] LABS: ALT (SGPT) 14 U/L (8-55); AST (SGOT) 15 U/L (5-34)
[2017-11-04] MEDS ORDERED: Pantoprazole 40 MG VIAL IVP SCH ×2 (09:00)
[2017-11-04] MEDS: Pantoprazole 80 MG in Sodium Chloride 0.9% 100 ML IVP SCH ×6 (09:55→19:44)
[2017-11-04] MEDS ORDERED: GoLYTELY 4,000 ml Bottle PO SCH (13:15)
--- NOTE | 2017-11-04 13:35 | PDOC.PN ---
- Subjective Encounter Start Date: 11/04/17 Encounter Start Time: 12:40 Subjective: no active bleed, had black stool this am - Objective Resuscitation Status: Resuscitation Status FULL:Full Resuscitation MAR Reviewed: Yes Vital Signs & Weight: Vital Signs (12 hours) Temp Pulse Resp BP Pulse Ox 11/04/17 11:00 97.8 F 80 19 135/49 L 97 11/04/17 08:13 97.8 F 80 19 97 11/04/17 07:00 97.8 F 88 18 134/53 L 96 11/04/17 03:15 98.5 F 96 18 155/53 H 98 Weight Weight 167 lb 3.2 oz I&O: 11/03/17 11/04/17 11/05/17 06:59 06:59 06:59 Intake Total 600 Output Total 400 Balance 200 Result Diagrams: 11/04/17 05:11 11/04/17 05:11 Phys Exam - Physical Examination HEENT: PERRLA, moist MMs Neck: no JVD, supple Respiratory: no wheezing, no rales Cardiovascular: RRR, no significant murmur Gastrointestinal: soft, non-tender, positive bowel sounds Musculoskeletal: no edema, pulses present Neurological: non-focal, moves all 4 limbs Psychiatric: A&O x 3 Dx/Plan (1) Gastrointestinal bleeding Code(s): K92.2 - GASTROINTESTINAL HEMORRHAGE, UNSPECIFIED Status: Acute Qualifiers: GI bleed type/associated pathology: unspecified gastrointestinal hemorrhage type Qualified Code(s): K92.2 - Gastrointestinal hemorrhage, unspecified (2) Acute blood loss anemia Code(s): D62 - ACUTE POSTHEMORRHAGIC ANEMIA Status: Acute (3) Cardiomyopathy Code(s): I42.9 - CARDIOMYOPATHY, UNSPECIFIED Status: Chronic Qualifiers: Cardiomyopathy type: unspecified Qualified Code(s): I42.9 - Cardiomyopathy , unspecified Comment: ef of 25-30% (4) CAD (coronary artery disease) Code(s): I25.10 - ATHSCL HEART DISEASE OF [place] CORONARY ARTERY W/O ANG PCTRS Status: Chronic Qualifiers: Coronary Disease-Associated Artery/Lesion type: [place] artery [place] vs. transplanted heart: [place] heart (5) Afib Code(s): I48.91 - UNSPECIFIED ATRIAL FIBRILLATION Status: Chronic (6) HTN (hypertension) Code(s): I10 - ESSENTIAL (PRIMARY) HYPERTENSION Status: Chronic Qualifiers: Hypertension type: essential hypertension Qualified Code(s): I10 - Essential (primary) hypertension (7) DM type 2 (diabetes mellitus, type 2) Status: Chronic Qualifiers: Diabetes mellitus long-term insulin use: without salvage determiner use Diabetes mellitus complication status: with unspecified complications Qualified Code(s) : E11.8 - Type 2 diabetes mellitus with unspecified complications Comment: Well controlled, Continue Home MEds, Hold Metformin. SSI, keep BG 140- 180. - Plan recieved 2 u prbc this am -: awaiting endoscopy -: off eliquis now -: Hb around 7g after 2 u -: serial h/h, protonix drip * . Review of Systems - Medications/Allergies Allergies/Adverse Reactions: Allergies Allergy/AdvReac Type Severity Reaction Status Date / Time No Known Allergies Allergy Verified 12/01/14 17:16 Medications: Current Medications Sodium Chloride (Normal Saline 0.9%) 1,000 mls @ 75 mls/hr IV .[id number] [facility] Last Admin: 11/04/17 06:16 Dose: 1,000 mls Pantoprazole Sodium 80 mg/ (Sodium Chloride) 100 mls @ 10 mls/hr IVP INF [facility] Last Admin: 11/04/17 09:55 Dose: 100 mls Polyethylene Glycol/Electrolytes (Golytely) 4,000 ml PO ONE [facility] Stop: 11/05/17 13:16
[2017-11-04 14:07] LABS: Hemoglobin 7.1 g/dL (12.0-16.0)
[2017-11-04] MEDS: Ezetimibe 10 MG TAB PO SCH (19:43)
[2017-11-04] MEDS: Carvedilol 3.125 MG TAB PO SCH (19:43)
[2017-11-04] MEDS: Simvastatin 40 MG TAB PO SCH (19:43)
--- NOTE | 2017-11-04 20:16 | CON ---
DATE OF CONSULTATION: 11/04/2017 REASON FOR CONSULTATION: Melena, anemia. CONSULTING PHYSICIAN: Dr. Aimee Canales. 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 Patient states that over the past 2 weeks, she has been experiencing increased weakness and mild audrey rtness of breath on exertion that has also been associated with increased nausea, but without any act ual emesis. She also admits to an episode of increased dizziness when going from a sitting to a tai ding position with almost loss of balance and fall, but she denies any losing any consciousness or an ything that is consistent with a syncopal type event. However, over the same time period, she does a dmit to having approximately 2-3 solid black stools during this time. That was not associated with i ncreased abdominal pain, hematochezia or hematemesis; however, the patient has been intermittently ta lorin iron supplementation over the last 12 months for her chronic anemia. Upon evaluation in the [facility], she was noted to have a slowly down trending H&H when compared to previous concerning for possible GI bleeding and with admission for further evaluation. REVIEW OF SYSTEMS: Ten category review of systems was obtained with all responses negative except fo r the pertinent positives as listed in the HPI. PAST MEDICAL HISTORY: As per HPI. FAMILY HISTORY: Coronary artery disease - myocardial infarction (father), stomach cancer (mother) an d ovarian cancer (sister). SOCIAL HISTORY: Denies any tobacco, alcohol or illicit drug use. OUTPATIENT MEDICATIONS: Reviewed. ALLERGIES: No known drug allergies. PHYSICAL EXAMINATION: VITAL SIGNS: Temperature of 97.3, pulse 93, blood pressure 128/50, respiratory rate 20, satting 97% on room air. GENERAL: The patient is lying comfortably in bed in no acute distress. Alert and oriented x4. NECK: Supple. No JVD noted. CARDIOVASCULAR: Regular rate and rhythm with no discernible murmurs, gallops or rubs. RESPIRATORY: Clear to auscultation bilaterally with no discernible wheezes or rales. ABDOMEN: Normoactive bowel sounds, soft, nondistended, minimal midepigastric abdominal pain upon pal pation. EXTREMITIES: No cyanosis, clubbing or edema. LABORATORY DATA: CBC with a white blood cell count of 10.3, hemoglobin 7.1, hematocrit 22, platelets 320. Chemistry with a sodium 134, potassium 5.2, chloride 99, CO2 is 28, BUN 29, creatinine 1.09, g lucose 109, AST 15, ALT 14, alkaline phosphatase 45, total bilirubin 1.1. IMAGING DATA: Chest x-ray performed on 11/03/2017 showed atherosclerosis of the aorta with an enlarg ed cardiac silhouette. Pulmonary vessels and pulmonary hilum were normal. There was no evidence of acute cardiopulmonary process. ASSESSMENT AND PLAN: The patient is an 82-year-old female with past medical history of hypertension, coronary artery disease, status post percutaneous coronary intervention stent placement, diabetes, g astroesophageal reflux disease, chronic renal insufficiency, chronic anemia and peptic ulcer disease presenting with worsening anemia. Worsening anemia: The patient states that over the last 2 weeks, she has been having increased weakn ess, shortness of breath and admits to having solid black stools approximately 2-3 times over the e time. With the decrease in her H&H while taking Eliquis that was ultimately started in April last year, this is concerning for possible GI bleeding source. When coupled with the black stools, it does tend to lead more towards an upper GI bleeding source, but the lower GI source cannot be rul ed out at this time as well. Given that the patient was transfused with 1 unit of PRBCs on admission , iron indices to further characterize this anemia will be erroneous. Given the patient's history of black stools, chronic anemia and worsening anemia, endoscopic intervention or evaluation is indicate d at this time. RECOMMENDATIONS: 1. We would continue to trend H&H and transfuse as necessary to maintain an H&H of 03/02. 2. We would continue on PPI b.i.d. for possible upper gastrointestinal bleed. 3. We will plan for both EGD and colonoscopy tomorrow for evaluation of possible iron deficiency ane harpreet. Please make patient n.p.o. midnight with GoLYTELY prep in anticipation of these procedures. 4. We would continue to monitor clinically for signs of any active gastrointestinal bleeding. We will continue to follow. Please call with any questions.
[2017-11-04] MEDS ORDERED: Non-Formulary Item 1 EACH (Ezetimibe/Simvastatin [Vytorin] 1 TABLET) PO SCH ×2 (21:00)
[2017-11-04 22:05] LABS: Hemoglobin 7.6 g/dL (12.0-16.0)
[2017-11-05] MEDS: Pantoprazole 80 MG in Sodium Chloride 0.9% 100 ML IVP SCH ×3 (05:22)
[2017-11-05] MEDS: Sodium Chloride 0.9% 1,000 ML IV SCH (05:23)
[2017-11-05] MEDS: Carvedilol 3.125 MG TAB PO SCH ×2 (05:23→22:21)
[2017-11-05 05:53] LABS: Hemoglobin 6.2 g/dL (12.0-16.0)
[2017-11-05 06:06] LABS: ALT (SGPT) 12 U/L (8-55); AST (SGOT) 15 U/L (5-34); Alkaline Phosphatase 40 U/L (40-150); Anion Gap 9 mmol/L (10-20); BUN (Urea Nitrogen) 16 mg/dL (9.8-20.1); Bilirubin, Total 0.7 mg/dL (0.2-1.2); Calc. Creatinine Clearance 60 mL/min (70-130); Calcium 7.9 mg/dL (7.8-10.44); Carbon Dioxide 26 mmol/L (23-31); Chloride 107 mmol/L (98-107); Estimated GFR-MDRD 65; Globulin 2.3 g/dL (2.4-3.5); Glucose 124 mg/dL (83-110); Protein, Total 5.3 g/dL (6.0-8.3); Sodium 138 mmol/L (136-145)
[2017-11-05] MEDS ORDERED: Furosemide 40 MG TAB PO SCH (07:30)
--- NOTE | 2017-11-05 10:32 | CON ---
DATE OF CONSULTATION: 11/05/2017 SERVICE: Pulmonary Medicine. REASON FOR CONSULTATION: CU patient. HISTORY OF PRESENT ILLNESS: The patient is an 82-year-old white female with past medical history significant for peptic ulcer disease. This is a remote thing. Recently, however, she had atrial fibrillation and underwent cardiac catheterization with ablation. She was put on an anticoagulant. A couple of weeks later, she started having some dark stools. She presented to the Emergency Department with weakness and was discovered to have anemia. Overnight , she got a unit of blood. She got 1 additional unit because she continued to trend downward. Her anticoagulation has been held and she was started on Protonix. Currently, she is not any worse or any better. She does not have any dizziness whenever she gets up and use the bedside commode. She got bowel prepped last night in preparation for a double header. PAST MEDICAL HISTORY: 1. Peptic ulcer disease. 2. Atrial fibrillation, status post ablation. 3. Hypertension. 4. Dyslipidemia. 5. Type 2 diabetes mellitus. 6. Gastroesophageal reflux disease. 7. Coronary artery disease, status post percutaneous coronary intervention. 8. Chronic kidney disease. 9. Anemia. PAST SURGICAL HISTORY: 1. section. 2. Appendectomy. 3. Herniorrhaphy. 4. Cholecystectomy. 5. Percutaneous coronary intervention. 6. Cataract surgery. ALLERGIES: No known drug allergies. SOCIAL HISTORY: Negative for alcohol, tobacco or illicit drug use. She lives with her granddaughter. She has no exposure to chemicals, dust asbestos or tuberculosis. FAMILY HISTORY: non contributory. MEDICATIONS: List of her inpatient medications were reviewed. I discontinued Lasix and her IV fluids at this time. REVIEW OF SYSTEMS: General, head, ears, eyes, nose, throat, cardiovascular, respiratory, GI, , musculoskeletal, neurologic and skin is negative except mentioned in the HPI. PHYSICAL EXAMINATION: VITAL SIGNS: Afebrile, pulse 81, blood pressure 118/42, respirations 17, saturation 96% on room air. GENERAL: The patient is awake, alert, in no apparent distress. HEENT: Normocephalic, atraumatic. Sclerae are white, conjunctivae pale. Oral mucosa is moist without lesions now. LUNGS: Excellent air entry with no prolonged expiratory phase, wheezing, rhonchi or crackles. HEART: Normal rate and regular. ABDOMEN: Soft, nontender, nondistended. Bowel sounds are positive. MUSCULOSKELETAL: No cyanosis or clubbing. No pitting in the bilateral lower extremities. NEUROLOGIC: Grossly nonfocal. LABORATORY DATA: Sodium 138. Basic metabolic profile is otherwise unremarkable. Creatinine is down trended from 1.28-0.83. Liver function studies are unremarkable. Cardiac enzymes x1 is negative. BNP normal. Hemoglobin was 6.4 on presentation. With 1 unit of blood, she went up to 7.1, but has once again trickled down to 6.2. IMAGING: Chest x-ray demonstrates no acute cardiopulmonary abnormality. Cardiomegaly is clearly present. ASSESSMENT: 1. Acute blood loss anemia. 2. Upper GI bleed. PLAN: The patient is doing absolutely fantastic from a cardiovascular and respiratory standpoint presently. I will discontinue her IV fluids as well as her Lasix. She is in the process of getting 1 additional unit of blood. Clinically, however, she remains minimally on the dry side. As such, I do think that Lasix is currently indicated. She is going for double header today. If it appears that she has a low risk lesion, she can be transitioned to the medical unit. Pulmonary or Critical Care will continue to follow while she remains in this location; however. Repeat hemoglobin will be done this afternoon. 70 minutes have been devoted to this patient in various activities. I personally reviewed all imaging studies and laboratory data noted within this document. For fifty percent of this time, I was interacting with the patient at the bedside or coordinating care with the care team. For the remainder of the time I was immediately available to the patient in the hospital unit. NORMAN
--- NOTE | 2017-11-05 12:31 | PDOC.PN ---
- Subjective Encounter Start Date: 11/05/17 Encounter Start Time: 11:05 Subjective: no landon bleeding, drank golytely for colon prep -: no dizziness or sob - Objective Resuscitation Status: Resuscitation Status FULL:Full Resuscitation MAR Reviewed: Yes Vital Signs & Weight: Vital Signs (12 hours) Temp Pulse Resp BP Pulse Ox 11/05/17 11:46 98.3 F 77 22 H 154/62 H 100 11/05/17 09:52 97.9 F 16 96 11/05/17 09:40 97.9 F 109 H 16 158/67 H 11/05/17 08:00 97.9 F 109 H 16 96 11/05/17 07:35 98.1 F 81 17 118/42 L 94 L 11/05/17 04:00 97.5 F L 91 16 123/53 L 97 Weight Weight 167 lb 3.2 oz Most Recent Monitor Data Heart Rate from ECG 109 I&O: 11/04/17 11/05/17 11/06/17 06:59 06:59 06:59 Intake Total 600 3000 0 Output Total 400 4400 Balance 200 -1400 0 Result Diagrams: 11/05/17 05:44 11/05/17 05:44 Phys Exam - Physical Examination HEENT: PERRLA, moist MMs Neck: no JVD, supple Respiratory: no wheezing, no rales Cardiovascular: RRR, no significant murmur Gastrointestinal: soft, non-tender, positive bowel sounds Musculoskeletal: no edema, pulses present Neurological: non-focal, moves all 4 limbs Psychiatric: normal affect, A&O x 3 Dx/Plan (1) Gastrointestinal bleeding Code(s): K92.2 - GASTROINTESTINAL HEMORRHAGE, UNSPECIFIED Status: Acute Qualifiers: GI bleed type/associated pathology: unspecified gastrointestinal hemorrhage type Qualified Code(s): K92.2 - Gastrointestinal hemorrhage, unspecified (2) Acute blood loss anemia Code(s): D62 - ACUTE POSTHEMORRHAGIC ANEMIA Status: Acute (3) Cardiomyopathy Code(s): I42.9 - CARDIOMYOPATHY, UNSPECIFIED Status: Chronic Qualifiers: Cardiomyopathy type: unspecified Qualified Code(s): I42.9 - Cardiomyopathy , unspecified Comment: ef of 25-30% (4) CAD (coronary artery disease) Code(s): I25.10 - ATHSCL HEART DISEASE OF [place] CORONARY ARTERY W/O ANG PCTRS Status: Chronic Qualifiers: Coronary Disease-Associated Artery/Lesion type: [place] artery [place] vs. 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 SSI, keep BG 140- 180. - Plan for EGD/colonoscopy today -: 1 unit prbc today (has recieved total of 2 prior transfusions this admit) -: is on protonix drip -: amiodarone, coreg, oral lasix -: watch for overload with h/o low ef * . Review of Systems - Medications/Allergies Allergies/Adverse Reactions: Allergies Allergy/AdvReac Type Severity Reaction Status Date / Time No Known Allergies Allergy Verified 12/01/14 17:16 Medications: Current Medications Amiodarone HCl (Cordarone) 200 mg PO DAILY [facility] Carvedilol (Coreg) 3.125 mg PO BID [facility] Last Admin: 11/05/17 05:23 Dose: 3.125 mg Ezetimibe (Zetia) 10 mg PO [facility] Last Admin: 11/04/17 19:43 Dose: 10 mg Sodium Chloride (Normal Saline 0.9%) 1,000 mls @ 75 mls/hr IV .[id number] [facility] Last Admin: 11/05/17 05:23 Dose: 1,000 mls Pantoprazole Sodium 80 mg/ (Sodium Chloride) 100 mls @ 10 mls/hr IVP INF [facility] Last Admin: 11/05/17 05:22 Dose: 100 mls Polyethylene Glycol/Electrolytes (Golytely) 4,000 ml PO ONE [facility] Stop: 11/05/17 13:16 Last Admin: 11/04/17 17:35 Dose: 4,000 ml Sertraline HCl (Zoloft) 25 mg PO DAILY [facility] Simvastatin (Zocor) 40 mg PO [facility] Last Admin: 11/04/17 19:43 Dose: 40 mg Sodium Chloride (Flush - Normal Saline) 10 ml IVF PRN PRN PRN Reason: Saline Flush
--- NOTE | 2017-11-05 12:41 | PQF ---
DATE: 11-05-17 ATTN: DR. HORACIO MCKEON Please exercise your independent, professional judgment in responding to the clarification form. Clinical indicators are provided on the bottom of this form for your review Please check appropriate box(s): [ ] Acute Renal Failure (ARF) / Acute Kidney Injury (EVANS) [ ] Acute on Chronic Renal Failure please specify Stage of CKD (see below) [ ] CKD without ARF/EVANS please specify Stage of CKD [ x ] Other diagnosis __no evans/arf [ ] Unable to determine In addition, please specify: Present on Admission (POA): [ ] Yes [ ] No [ ] Unable to determine National Kidney Foundation Guidelines for CKD Staging Stage I Kidney damage with normal or increased GFR GFR > 90 Stage II Kidney damage with mildly decreased GFR GFR 60-89 Stage III Kidney damage with moderately decreased GFR GFR 30-59 Stage IV Kidney damage with severely decreased GFR GFR 16-29 Stage V Kidney failure GFR<15 ESRD End Stage Renal Disease On dialysis Acute Renal Failure/Acute Kidney Failure defined as: Increases in SCr by (>) 0.3 mg/dl within 48 hours OR- Increases in SCr by (>) 1.5 times baseline, known or presumed to have occurred within the prior 7 days OR- Urine volume < 0.5 ml/kg/hour for 6 hours (KDIGO supplement 2012 for RIFLE/CHANO criteria) For continuity of documentation, please document condition throughout progress notes and discharge summary. Thank You. CLINICAL INDICATORS - SIGNS / SYMPTOMS / LABS ER DOCUMENTATION: RENAL DISEASE, INSUFFICIENCY H&P: CHRONIC RENAL INSUFFICIENCY GFR: 11-03-17: 40 11-04-17: 48 : 65 CREATININE: 11-03-17: 1.28, 11-04-17: 1.09 11-05-17: 0.83 BUN: 18: 27 11-04-17: 29 11-05-17: 16 RISK FACTORS: H&P: CHRONIC RENAL INSUFFICIENCY, IN WITH UPPER GI BLEED WITH ACUTE BLOOD LOSS ANEMIA ( ER) HOME LASIX TREATMENTS: (ER) NS BOLUS, (MAR) IVF (This form is maintained as a part of the permanent medical record) 2014 [employer] All Rights Reserved [email or web address] Office: [phone] [facility]
[2017-11-05] MEDS ORDERED: Midazolam HCl 2 mg/2 ml Vial ONE (13:14)
[2017-11-05] MEDS ORDERED: Ketamine 50 MG/ML VIAL ONE (13:14)
[2017-11-05] MEDS ORDERED: Furosemide 40 MG/4 ML VIAL ONE (13:50)
[2017-11-05] MEDS ORDERED: Sodium Bicarbonate 2.5 MEQ/5 ML VIAL ONE (14:12)
[2017-11-05] MEDS ORDERED: Sodium Bicarb 50 MEQ/50 ML Abboject 8.4% SYRINGE ONE (14:13)
[2017-11-05] MEDS ORDERED: hydrALAZINE 20 MG/ML VIAL ONE (14:59)
--- NOTE | 2017-11-05 15:12 | OP ---
DATE OF PROCEDURE: 11/05/2017 PROCEDURE: Esophagogastroduodenoscopy (diagnostic). INDICATION FOR PROCEDURE: Anemia, possible melena. DESCRIPTION OF PROCEDURE: After the risks and benefits of the procedure were explained to the patien t including risks of bleeding, infection, perforation, reaction to anesthesia and/or pain, informed c onsent was obtained. The patient was then taken to the endoscopy suite where deep sedation was admin istered via propofol and anesthesia support. The standard gastroscope was then introduced into the outh with intubation of the esophagus, stomach and proximal small intestine with the findings listed below. Near the end of the procedure, the patient experienced decreased oxygen saturation as well as a wide complex tachycardia indicating respiratory failure. The patient was then emergently intubate d with endotracheal intubation and excluded aggressive suctioning. A significant amount of blood was also noted in her mouth as well as upon suctioning of the endotracheal tube once placed. The patien t's oxygen saturations at one point decreased to approximately 40%-50% and remained therefore close t o 4-5 minutes before coming back into the high 60s to low 70s with administration of sodium bicarbona te. The critical care ceiling insulation blower was then notified with placement of a femoral line in addition to the endotracheal intubation with the patient transferred to the unit for further evaluation and care. FINDINGS: ESOPHAGUS: Normal appearing mucosa was seen in the proximal, mid and distal esophagus. There was no evidence of erosions, ulcerations, mass lesions or active/recent bleeding. STOMACH: Normal appearing mucosa was seen in the gastric cardia fundus, body, antrum and incisura. There was no evidence of erosions, ulcerations, mass lesions or active/recent bleeding. SMALL BOWEL: Normal appearing mucosa was seen in the duodenal bulb and second portion of the duodenu m. There was no evidence of erosions, ulcerations, mass lesions or active/recent bleeding. IMPRESSION: 1. Normal upper endoscopy. 2. Complications of the procedure including acute oxygen desaturation and wide complex tachycardia c oncerning for ventricular tachycardia and chest x-ray performed at bedside concerning for flash pulmo nary edema. RECOMMENDATIONS: 1. The patient to be transferred to the Critical Care Unit for further management and care. 2. The colonoscopy was not performed today due to acute decompensation and would recommend holding o n this particular procedure until clinically stable, would then consider repeat colonoscopy based on patient's clinical status at that point in time and any evidence of overt gastrointestinal bleeding. 3. Transfuse as necessary to maintain an hemoglobin and hematocrit of 7/21. 4. Continue to monitor clinically for signs of active gastrointestinal bleeding.
[2017-11-05] MEDS ORDERED: Lacri-Lube Opth Oint 3.5 GM TUBE EA EYE PRN (15:34)
[2017-11-05] MEDS ORDERED: Sedation Protocol FS ONE (15:34)
--- NOTE | 2017-11-05 15:44 | PRG ---
DATE OF SERVICE: 11/05/2017 SERVICE: Pulmonary Medicine. INTERVAL HISTORY: The patient went down for an EGD. She was supposed to have an EGD and a colonosco py. Towards the end of the EGD, the patient had a little bit of desaturation associated with some bl ood in the mouth. There was no significant bleeding from the stomach or esophagus. When we exited t he mouth, there were significant amounts of blood throughout. There was a small hematoma on the soft palate. This was actively bleeding, but ultimately stopped. The patient had some desaturation righ t around that period of time. There is possibility of a little bit of aspiration of blood. Either w ay, because of the desaturation event, they elected to control her airway with endotracheal tube. Sh ortly after this occurred, she had very elevated blood pressures. She has known severe systolic hear t failure as well as severe mitral regurgitation. Either way, she developed a horrendous hypoxemic r espiratory failure. She never lost her pulse. She developed a wide complex tachyarrhythmia briefly, but then went back into normal tachycardia. Multiple interventions were performed in order to gathe r some more data. A right femoral line was placed as well as a right femoral artery and femoral cent ral venous catheter were both placed. Ultimately, once we were able to obtain some good data, it cuong eared that the transient hypoxemia is being well controlled with positive end-expiratory pressure, an d high FIO2, which we started weaning away. The patient will return to the unit, mechanically intuba te. PHYSICAL EXAMINATION: VITAL SIGNS: Afebrile, pulse 77, blood pressure 165/50, respirations 16, saturation 98% on 70% FIO2 and a PEEP of 7. HEENT: Normocephalic, atraumatic. Sclerae are white. Conjunctivae pale. Oral and nasal mucosa is moist without lesions. LUNGS: Bilateral crackles are present throughout the lung yu. There is no prolonged expiratory phase. There is expiratory wheezing present, but not much of a prolonged expiratory phase. HEART: Normal rate, regular. ABDOMEN: Soft, nontender, nondistended. Bowel sounds are positive. MUSCULOSKELETAL: No cyanosis or clubbing. No pitting in the bilateral lower extremities. NEUROLOGIC: Grossly nonfocal. LABORATORY DATA: Hemoglobin 6.2. A pH 7.16 has improved to 7.4, pCO2 was in the 60s, but has improv ed to the 40s; pO2 was 31, but has improved to 88. IMAGING: Chest x-ray demonstrates interval development of bilateral parenchymal opacifications consi stent with overt pulmonary edema. There is widening of the dawson angle suggestive of left atrial en largement. Calcification of the aortic knob is present. There is an endotracheal tube which termina henrry roughly 2-3 cm above the level of the dawson. ASSESSMENT: 1. Acute hypoxic respiratory failure. 2. Flash pulmonary edema. 3. 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 4. Acute blood loss anemia. 5. No evidence of an upper gastrointestinal bleed. DISCUSSION AND PLAN: There is a possibility the patient had an upper airway issue in the nose, or th e posterior oropharynx that was causing the patient to swallow blood and generate signs that look sim ilar to an upper GI bleed. ENT consultation will be placed. We will keep the patient on mechanical ventilation over the next 24 hours and let the dust settle. An additional unit of blood will be prov ided, and will trend the hemoglobins through time. I have already placed an arterial line and a cent ral venous catheter in the right inguinal region. Hopefully, this will be removed in 24-48 hours if the patient demonstrates stability. She apparently had pretty significant hypoxemia for an extended period of time. I am hopeful that her brain is able to make a full recovery. At this point, urine o utput has never wavered. CRITICAL CARE TIME: 105 minutes.
[2017-11-05] MEDS ORDERED: Calcium Chloride 1 GM/10 ML Abboject SYRINGE ONE (15:50)
[2017-11-05] MEDS ORDERED: Succinylcholine Chloride 20 MG/ML 10 ml SYRINGE FS ONE (15:50)
[2017-11-05] MEDS ORDERED: Fentanyl CADD 250 ML IVPB SCH (15:57)
[2017-11-05] MEDS ORDERED: DISCONTINUE PREVIOUS NARCOTIC PAIN MEDICATIONS AND BENZODIAZEPINES FS SCH ×2 (15:57)
[2017-11-05] MEDS ORDERED: Fentanyl BOLUS 250 ML IVPB PRN ×2 (15:57)
[2017-11-05] MEDS ORDERED: Morphine 4 MG/ML VIAL SLOW IVP PRN (15:58)
[2017-11-05] MEDS ORDERED: fentaNYL Citrate/PF 2,000 MCG in Sodium Chloride 0.9% 60 ML IV SCH (16:00)
[2017-11-05] MEDS: Propofol 1,000 MG/100 ML VIAL IV PRN ×2 (16:00→19:48)
[2017-11-05 16:18] LABS: Actual Bicarbonate (HCO3a) 25.5 mEq/L (22-26); Base Excess (BEa) 0.8 mEq/L (0 (+/-) 2.5); CO2 Tension 41.1 mmHg (35.0-45.0); Hematocrit-ABG 21.3 % (36.0-47.0); Hemoglobin (Hb) 6.9 g/dL (12.0-16.0); O2 Tension (PaO2) 78.9 mmHg (80.0-100.0); pH, Arterial 7.41 (7.35-7.45)
[2017-11-05 16:19] LABS: Calcium, Ionized 1.2 mmol/L (1.12-1.30); Puncture Site ALINE
[2017-11-05 16:23] LABS: ALV-art Gradient 154.925 (0-20)
[2017-11-05 16:28] LABS: Troponin I 0.017 ng/mL (< 0.028)
[2017-11-05] MEDS: Amiodarone 200 MG TAB PO SCH (16:34)
[2017-11-05] MEDS: Lorazepam 2 MG/ML VIAL SLOW IVP PRN ×2 (17:52→20:00)
--- NOTE | 2017-11-05 18:05 | RAD ---
AP VIEW OF CHEST: Date: 11/05/17 INDICATION: Decreased O2 sats while undergoing endoscopy. FINDINGS: There are diffuse bilateral parenchymal opacities involving both lungs. The patient is intubated. Fin dings may be related to florid pulmonary edema or hemorrhage. Cardiac silhouette is obscured, but is felt to be mildly prominent. There are vascular calcifications involving the aortic arch. No pneumoth orax is evident. No acute osseous abnormalities noted. IMPRESSION: 1. Intubation. 2. Interval development of diffuse air space opacity involving both lungs may reflect florid edema v ersus hemorrhage. POS: [facility]
[2017-11-05] MEDS ORDERED: hydrALAZINE 20 MG/ML VIAL SLOW IVP PRN (18:24)
[2017-11-05] MEDS ORDERED: Pantoprazole 40 MG VIAL IVP SCH ×2 (21:00)
[2017-11-05 22:08] LABS: Hemoglobin 8.3 g/dL (12.0-16.0)
[2017-11-05] MEDS: Ezetimibe 10 MG TAB PO SCH (22:21)
[2017-11-05] MEDS: Simvastatin 40 MG TAB PO SCH (22:22)
[2017-11-06 04:44] LABS: Anion Gap 10 mmol/L (10-20); BUN (Urea Nitrogen) 13 mg/dL (9.8-20.1); Calc. Creatinine Clearance 61 mL/min (70-130); Calcium 8.5 mg/dL (7.8-10.44); Carbon Dioxide 29 mmol/L (23-31); Chloride 106 mmol/L (98-107); Estimated GFR-MDRD 64; Glucose 165 mg/dL (83-110); Magnesium 1.6 mg/dL (1.6-2.6); Phosphorus 3.2 mg/dL (2.3-4.7); Potassium 3.6 mmol/L (3.5-5.1); Sodium 141 mmol/L (136-145)
[2017-11-06 04:50] LABS: Band 4 % (5-11); Lymphocytes 19 % (21-51); MDiff Complete? YES; Mean Corpuscular HGB CONC 33.5 g/dL (32.0-36.0); Mean Corpuscular Hemoglobin 31.2 pg (27.0-31.0); Mean Corpuscular Volume 93.2 fl (81.0-99.0); Mean Platelet Volume 6.2 fL (7.4-10.4); Monocytes 1 % (0-10); Neutrophil 76 % (42-75); Nucleated RBC 1 % (0); PLT Morphology Comment Appears Adequate; Platelet Count 222 thou/uL (130-400); RBC Distribution Width 15.4 % (11.5-14.5); Red Blood Cell (RBC) Count 2.55 mill/uL (4.20-5.40); White Blood Cell (WBC) Count 12.9 thou/uL (4.8-10.8)
[2017-11-06] MEDS: Amiodarone 200 MG TAB PO SCH (07:59)
[2017-11-06] MEDS: Carvedilol 3.125 MG TAB PO SCH ×2 (07:59→20:28)
[2017-11-06] MEDS ORDERED: Magnesium 2 GM/NS 0.9% 100 ML 2 GM in Premix Bag 1 BAG IVPB SCH (08:45)
--- NOTE | 2017-11-06 08:52 | PRG ---
DATE OF SERVICE: 11/06/2017 SERVICE: Pulmonary Medicine. INTERVAL HISTORY: Overnight, the patient settled down beautifully. She cannot provide any additiona l elements of the history. That being said, her oxygen requirements have dramatically improved. She is currently on 31% FiO2 and a PEEP of 5. She has no specific complaints of nausea, vomiting. Ther e were no overnight events otherwise. This morning, she is on a sedation holiday. She is following simple commands. She got no focal neurologic abnormalities present. PHYSICAL EXAMINATION: VITAL SIGNS: Afebrile, pulse 95, blood pressure 155/58, respirations 18, saturation 93% on 31% FiO2 and a PEEP of 5. GENERAL: Patient is intubated. She is still under the influence of some sedation. She remains somn olent. HEENT: Normocephalic, atraumatic. Sclerae are white. Conjunctivae pink. Oral and nasal mucosa is moist without lesions. LUNGS: Decent air entry. There are crackles present bilaterally. HEART: Normal rate, regular. ABDOMEN: Soft, nontender, and nondistended. Bowel sounds are positive. MUSCULOSKELETAL: No cyanosis or clubbing. There is no pitting in the bilateral lower extremities. NEUROLOGIC: Grossly nonfocal. LABORATORY DATA: WBC 12.9, hemoglobin 8.0, platelets 222,000. Neutrophil count 76%, bands are 4%. Basic metabolic profile is essentially unremarkable except for potassium of 3.6 and magnesium of 1.6. Troponin is 0.017. Blood sugars are excellent and ranged from 165-232. IMAGING: Chest x-ray demonstrates interval improvement in the alveolar infiltrates in the bilateral lung yu. There is still prominent interstitium. The possible effusions have essentially resolve d. Endotracheal tube remains 4 cm above the dawson. There is an enteric catheter coursing below the level of the diaphragm and is clearly in the stomach. ASSESSMENT: 1. Acute hypoxic respiratory failure. 2. Flash pulmonary edema, resolving. 3. 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 4. Acute blood loss anemia. 5. Daniel-Cabrera respiratory pattern of breathing. DISCUSSION AND PLAN: The patient has done absolutely fantastic overnight. Oxygen requirements have dramatically improved. We will continue her sedation holiday and when she is a little less somnolent , we will try on a spontaneous breathing trial. At this point, her breathing is completely intermitt ent. She will have prolonged periods of apnea followed by tachypnea. This would be in keeping with her advanced heart disease. Pulmonary or Critical Care will continue to follow while she remains in this location. CRITICAL CARE TIME: 30 minutes.
--- NOTE | 2017-11-06 09:05 | RAD ---
PORTABLE UPRIGHT FRONTAL CHEST RADIOGRAPH: Date: 11-06-17 Comparison: 11-05 History: CCU ventilated patient, respiratory distress. FINDINGS: There is a nasogastric tube extending into the left upper quadrant. Stable endotracheal tube noted. N o pneumothorax. There is prominent interstitial and alveolar opacity in the perihilar regions in both lung bases. There are patchy areas of interstitial and alveolar opacity throughout the right lung an d in the mid left lung. There has been interval improvement in diffuse nonspecific interstitial and a lveolar opacity when compared to the 11-05-17 examination. There is atherosclerotic calcification of the thoracic aorta. IMPRESSION: Interstitial and alveolar opacity noted throughout the right lung and involving the mid left lung zon e/left lung base. Findings are improved when compared to the prior exam suggesting improving pulmonar y edema. Superimposed infection or aspiration cannot be excluded. Follow up to full resolution advise d. POS: [facility]
--- NOTE | 2017-11-06 11:56 | PDOC.PN ---
- Subjective Encounter Start Date: 11/06/17 Encounter Start Time: 11:30 Subjective: is on vent, awakens to touch but doesn't open eyes - Objective Resuscitation Status: Resuscitation Status FULL:Full Resuscitation MAR Reviewed: Yes Vital Signs & Weight: Vital Signs (12 hours) Temp Pulse Resp BP Pulse Ox 11/06/17 10:00 34 H 11/06/17 09:11 96 122/43 L 11/06/17 08:29 33 H 11/06/17 08:00 14 11/06/17 07:29 99.1 F 93 12 94 L 11/06/17 07:05 93 159/59 H 11/06/17 07:00 99.1 F 11/06/17 06:00 18 11/06/17 04:00 98.4 F 17 11/06/17 02:00 17 11/06/17 00:00 17 Weight Weight 173 lb 8.061 oz Most Recent Monitor Data Heart Rate from ECG 101 NIBP 118/46 NIBP BP-Mean 50 Respiration from ECG 31 SpO2 96 I&O: 11/05/17 11/06/17 11/07/17 06:59 06:59 06:59 Intake Total 3000 853.1 120 Output Total 4400 1260 120 Balance -1400 -406.9 0 Result Diagrams: 11/06/17 04:25 11/06/17 04:25 Additional Labs: Accuchecks 11/05/17 11/05/17 15:06 14:09 POC Glucose 198 H 232 H Phys Exam - Physical Examination HEENT: PERRLA, sclera anicteric Neck: no JVD, supple Respiratory: no wheezing rhonchi+ Cardiovascular: RRR, no significant murmur Gastrointestinal: soft, non-tender, no distention, positive bowel sounds Musculoskeletal: no edema, pulses present Neurological: non-focal, moves all 4 limbs Dx/Plan (1) Acute respiratory failure with hypoxia Code(s): J96.01 - ACUTE RESPIRATORY FAILURE WITH HYPOXIA Status: Acute (2) Acute systolic CHF (congestive heart failure) Code(s): I50.21 - ACUTE SYSTOLIC (CONGESTIVE) HEART FAILURE Status: Acute (3) Gastrointestinal bleeding Code(s): K92.2 - GASTROINTESTINAL HEMORRHAGE, UNSPECIFIED Status: Acute Qualifiers: GI bleed type/associated pathology: unspecified gastrointestinal hemorrhage type Qualified Code(s): K92.2 - Gastrointestinal hemorrhage, unspecified (4) Acute blood loss anemia Code(s): D62 - ACUTE POSTHEMORRHAGIC ANEMIA Status: Acute Comment: received total of 3 units of prbc this admission (5) Cardiomyopathy Code(s): I42.9 - CARDIOMYOPATHY, UNSPECIFIED Status: Chronic Qualifiers: Cardiomyopathy type: unspecified Qualified Code(s): I42.9 - Cardiomyopathy , unspecified Comment: ef of 25-30% (6) CAD (coronary artery disease) Code(s): I25.10 - ATHSCL HEART DISEASE OF [place] CORONARY ARTERY W/O ANG PCTRS Status: Chronic Qualifiers: Coronary Disease-Associated Artery/Lesion type: [place] artery [place] vs. transplanted heart: [place] heart (7) Afib Code(s): I48.91 - UNSPECIFIED ATRIAL FIBRILLATION Status: Chronic Qualifiers: Atrial fibrillation type: paroxysmal Qualified Code(s): I48.0 - Paroxysmal atrial fibrillation (8) HTN (hypertension) Code(s): I10 - ESSENTIAL (PRIMARY) HYPERTENSION Status: Chronic Qualifiers: Hypertension type: essential hypertension Qualified Code(s): I10 - Essential (primary) hypertension (9) DM type 2 (diabetes mellitus, type 2) Status: Chronic Qualifiers: Diabetes mellitus dialer insulin use: without dialer use Diabetes mellitus complication status: with unspecified complications Qualified Code(s) : E11.8 - Type 2 diabetes mellitus with unspecified complications - Plan will start on small dose lasix iv daily -: weaning per pulm advice -: no bleeding source on EGD, colonoscopy couldn't be done due to flash pulm e -: -artemio, oral protonix, coreg, amiodarone, zetia, zoloft. -: will f/u * . Review of Systems - Medications/Allergies Allergies/Adverse Reactions: Allergies Allergy/AdvReac Type Severity Reaction Status Date / Time No Known Allergies Allergy Verified 12/01/14 17:16 Medications: Current Medications Albuterol/Ipratropium (Duoneb) 3 ml NEB [id number] [facility] Last Admin: 11/06/17 06:56 Dose: 3 ml Amiodarone HCl (Cordarone) 200 mg PO DAILY [facility] Last Admin: 11/06/17 07:59 Dose: 200 mg Carvedilol (Coreg) 3.125 mg PO BID [facility] Last Admin: 11/06/17 07:59 Dose: 3.125 mg Ezetimibe (Zetia) 10 mg PO HS [facility] Last Admin: 11/05/17 22:21 Dose: 10 mg Hydralazine HCl (Apresoline) 10 mg SLOW IVP Q2H PRN PRN Reason: SBP GREATER THAN 160 Last Admin: 11/05/17 19:43 Dose: 10 mg Mineral Oil/White Petrolatum (Lacri-Lube Ointment) 0 gm EA EYE PRN PRN PRN Reason: Dry Eyes Pantoprazole Sodium (Protonix) 40 mg PO 2100 BOBBY Sertraline HCl (Zoloft) 25 mg PO DAILY [facility] Last Admin: 11/06/17 07:59 Dose: 25 mg Simvastatin (Zocor) 40 mg PO HS [facility] Last Admin: 11/05/17 22:22 Dose: 40 mg Sodium Chloride (Flush - Normal Saline) 10 ml IVF PRN PRN PRN Reason: Saline Flush Sodium Chloride (Flush - Normal Saline) 10 ml IVF PRN PRN PRN Reason: Saline Flush
[2017-11-06] MEDS ORDERED: Furosemide 20 MG/2 ML VIAL SLOW IVP SCH (12:00)
[2017-11-06] MEDS ORDERED: Propofol 1,000 MG/100 ML VIAL IV ONE (15:42)
--- NOTE | 2017-11-06 16:23 | PRG ---
DATE OF SERVICE: 11/06/2017 SUBJECTIVE: Ms. Deng remains on the ventilator. She is agitated, but responsive. She is doing better with her breathing and she is being considered for extubation for tomorrow. She has had no ov ert GI bleeding. OBJECTIVE: VITAL SIGNS: Temperature 100.4, blood pressure 129/56, pulse 103. GENERAL: She is pale, sedated on the vent. LUNGS: Have coarse breath sounds bilaterally. HEART: Regular rate and rhythm. ABDOMEN: Soft, nondistended, no guarding. EXTREMITIES: No lower extremity edema. IMPRESSION: Iron deficiency anemia. EGD yesterday was normal without a bleeding source. She did pr ep for colonoscopy; however, this was canceled due to acute flash pulmonary edema during the procedur e. She developed bloody output from her lungs and acute respiratory failure and was intubated. Her hemoglobin today is stable. She received 2 units transfusion yesterday. Hemoglobin last night follo wing transfusion was 8.3 and hemoglobin today is 8.0, hemoglobin in the morning yesterday was 6.2. S he did respond appropriately to the transfusion. RECOMMENDATIONS: 1. Colonoscopy is deferred at this point. 2. Supportive care for the respiratory failure per critical care.
[2017-11-06] MEDS ORDERED: Propofol 1,000 MG/100 ML VIAL IV PRN (19:48)
[2017-11-06] MEDS: Ezetimibe 10 MG TAB PO SCH (20:28)
[2017-11-06] MEDS: Simvastatin 40 MG TAB PO SCH (20:28)
[2017-11-07 04:56] LABS: #Basophils 0.1 thou/uL (0.0-0.2); #Lymphocytes 1.4 thou/uL (1.20-3.40); #Neutrophils 9.3 thou/uL (1.40-6.50); %Basophils 0.6 % (0.0-1.0); %Eosinophils 0.1 % (0.0-10.0); %Lymphocytes 11.9 % (21.0-51.0); %Monocytes 8.2 % (0.0-10.0); %Neutrophils 79.1 % (42.0-75.0); Hemoglobin 6.9 g/dL (12.0-16.0); Mean Corpuscular HGB CONC 31.9 g/dL (32.0-36.0); Mean Corpuscular Volume 97.2 fl (81.0-99.0); Mean Platelet Volume 6.7 fL (7.4-10.4); Platelet Count 204 thou/uL (130-400); RBC Distribution Width 15.8 % (11.5-14.5); Red Blood Cell (RBC) Count 2.24 mill/uL (4.20-5.40); White Blood Cell (WBC) Count 11.7 thou/uL (4.8-10.8)
[2017-11-07 05:06] LABS: Anion Gap 11 mmol/L (10-20); BUN (Urea Nitrogen) 23 mg/dL (9.8-20.1); Calc. Creatinine Clearance 52 mL/min (70-130); Calcium 8.4 mg/dL (7.8-10.44); Carbon Dioxide 27 mmol/L (23-31); Chloride 105 mmol/L (98-107); Estimated GFR-MDRD 52; Glucose 156 mg/dL (83-110); Magnesium 2.1 mg/dL (1.6-2.6); Potassium 3.9 mmol/L (3.5-5.1); Sodium 139 mmol/L (136-145)
--- NOTE | 2017-11-07 08:59 | PRG ---
DATE OF SERVICE: 11/07/2017 SUBJECTIVE: Ms. Deng has had no overt bleeding in her stool output. She has had no enteric inta ke since the bowel prep. OBJECTIVE: VITAL SIGNS: Pulse 91, blood pressure 139/56. She is afebrile today at 98.7; however, she did have fever yesterday to 100.4. GENERAL: She is awake and responsive. LUNGS: Coarse breath sounds. HEART: Regular rate and rhythm. ABDOMEN: Soft, nontender, nondistended. Bowel sounds are present. EXTREMITIES: No lower extremity edema. IMPRESSION: 1. Iron deficiency anemia. Her hemoglobin dropped again today from 8.0-6.9; however, there has been no overt bleeding with this. Upper endoscopy was negative by Dr. Jaime. She is doing better from a respiratory standpoint and I discussed the case with Dr. Eddy with the patient's son. Given the complication of the flash pulmonary edema during endoscopy, the safest time to do the colonoscopy wou ld be now while she is on the ventilator and also she has already had the bowel prep. I will plan fo r colonoscopy today. 2. Flash pulmonary edema and respiratory failure, improved. She is being evaluated for extubation t kvng; however, this will likely be delayed with the plan for colonoscopy. 3. Valvular heart disease and congestive heart failure. RECOMMENDATIONS: Colonoscopy today. Dr. Epps will be performing the procedure.
[2017-11-07] MEDS ORDERED: Furosemide 20 MG/2 ML VIAL SLOW IVP SCH (09:00)
--- NOTE | 2017-11-07 09:14 | PRG ---
DATE OF SERVICE: 11/07/2017 SERVICE: Pulmonary Medicine. INTERVAL HISTORY: The patient is doing really quite well from respiration and mentation standpoint. She is no longer having Daniel-Cabrera pattern of respiratory drive. There were no significant event s overnight. Her hemoglobin fell off a little bit. She is going to go down for colonoscopy today. After that, we will work on extubating her. Otherwise, there has been no interval change to her cond ition. PHYSICAL EXAMINATION: VITAL SIGNS: Afebrile, pulse 108, blood pressure 128/50, respirations 32, saturation 100% on 37% FIO 2 and a PEEP of 5. GENERAL: The patient is awake and alert. No apparent distress. LUNGS: Decent air entry. There are crackles that are still present. No prolonged expiratory phase or wheezing is appreciated, however. HEART: Normal rate, regular. ABDOMEN: Soft, nontender, nondistended. Bowel sounds are positive. MUSCULOSKELETAL: No cyanosis or clubbing. No pitting in the bilateral lower extremities. NEUROLOGIC: Grossly nonfocal. LABORATORY DATA: WBC 11.7, hemoglobin 6.9, platelets 204,000. Basic metabolic profile is essentiall y unremarkable. Creatinine has up trended to 1.01, and BUN is now 23. Magnesium 2.1. Potassium 3.9 . ASSESSMENT: 1. Acute hypoxic respiratory failure, improving. 2. Flash pulmonary edema secondary to hypertensive emergency, resolving. 3. 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 4. Acute blood loss anemia. 5. Daniel-Cabrera respiratory pattern of breathing, resolved. DISCUSSION AND PLAN: The patient is currently much more hemodynamically stable. I will continue to wean oxygen away as tolerated. We will put her on a spontaneous breathing trial after she undergoes colonoscopy. We will give her 1 unit of blood today. We will check her hemoglobin tomorrow morning. CRITICAL CARE TIME: 30 minutes.
[2017-11-07] MEDS: Amiodarone 200 MG TAB PO SCH (09:21)
[2017-11-07] MEDS: Carvedilol 3.125 MG TAB PO SCH ×2 (09:21→19:41)
[2017-11-07 12:20] LABS: CO2 Tension 64.2 mmHg (35.0-45.0); pH, Arterial 7.16 (7.35-7.45)
[2017-11-07 12:21] LABS: Actual Bicarbonate (HCO3a) 22.4 mEq/L (22-26); Base Excess (BEa) -5.8 mEq/L (0 (+/-) 2.5)
[2017-11-07 12:22] LABS: Analyzer IN Cardio OR; Hematocrit-ABG 21.3 % (36.0-47.0); Hemoglobin (Hb) 6.3 g/dL (12.0-16.0); Puncture Site ALINE
[2017-11-07 12:23] LABS: Actual Bicarbonate (HCO3a) 27.2 mEq/L (22-26); Analyzer IN Cardio OR; CO2 Tension 45.5 mmHg (35.0-45.0); Calcium, Ionized 1.2 mmol/L (1.12-1.30); Hematocrit-ABG 20.5 % (36.0-47.0); Hemoglobin (Hb) 6.6 g/dL (12.0-16.0); O2 Tension (PaO2) 88.8 mmHg (80.0-100.0); Puncture Site ALINE; pH, Arterial 7.39 (7.35-7.45)
[2017-11-07] MEDS ORDERED: PROPOFOL 200 MG/20 ML VIAL ONE (12:34)
[2017-11-07] MEDS: 1/2 NS w/KCL 20 mEq 1,000 ML IV SCH (12:39)
--- NOTE | 2017-11-07 16:56 | OP ---
DATE OF PROCEDURE: 11/07/2017 GI ENDOSCOPY NOTE SURGEON: Heber Epps M.D. SURGERY ATTENDANT SURGEON: None. PROCEDURE: Colonoscopy, diagnostic. INDICATION: Iron deficiency anemia. MEDICATIONS: See anesthesia record. FINDINGS: After discussion of the risks, benefits and alternatives of the procedure, informed consen t was obtained and verified. Pre-endoscopic cardiopulmonary examination was satisfactory. Timeout w as performed before sedation was achieved. Sedation was achieved with anesthesia assistance in the [facility]'s ICU room with the patient remaining endotracheally intubated on the ventilator. The patient was placed in left lateral decubitus position. Digital rectal exam was performed which showed some external hemorrhoids. A Pentax adult colonoscope was inserted into the anus and passed forward to th e cecum in the usual fashion. The cecal base was identified by the appendiceal orifice. The termina l ileum was not intubated. The colonoscope was then slowly withdrawn in a gradual and circumferentia l manner with careful examination of the colonic mucosa. The quality of the prep was poor. It was p articularly poor in the right colon and much of the mucosa was obscured within the limitations of the poor bowel prep, the procedure was normal. There were no mass or lesions visualized. There was no evidence of any old blood or active bleeding in the colon. There is diverticulosis in the sigmoid co addi. Internal hemorrhoids were apparent on retroflexion. The colonoscope was completely withdrawn a nd the patient allowed to recover. The patient tolerated the procedure well. There were no immediat e post-procedure complications. IMPRESSION: 1. Very poor bowel prep, particularly in the right colon. 2. No evidence of any old blood or active bleeding. 3. Normal colonic mucosa throughout the colon where visualized within the limitations of poor bowel prep. 4. Sigmoid diverticulosis. 5. Internal and external hemorrhoids. RECOMMENDATIONS: Okay to resume feeding from GI perspective.
--- NOTE | 2017-11-07 17:02 | OP ---
DATE OF SERVICE: 11/07/2017 SERVICE: Pulmonary Medicine. PROCEDURES PERFORMED: 1. Right-sided 7.5 Chinese triple lumen femoral venous catheter placement under ultrasound guidance. 2. Right femoral artery line placement. CONSENT: The consent was implied secondary to emergent condition. STAFF PHYSICIAN: Cain Eddy MD. MEDICATIONS USED: None. PREPROCEDURE DIAGNOSIS: Acute hypoxic respiratory failure. POSTPROCEDURE DIAGNOSIS: Acute hypoxic respiratory failure. DESCRIPTION OF PROCEDURE: Vital sign monitoring was accomplished by noninvasive hemodynamic monitori ng, pulse oximetry, and telemetry. A timeout was performed and the patient was positively identified by name and date of . The procedure site was marked. The patient was placed in supine positio n and the right groin was prepped and draped in sterile fashion. The course of the femoral vein was mapped with ultrasound. The cannulation needle was placed in the right femoral vein under direct ult rasound guidance with return of dark red, nonpulsatile blood on the first attempt. A J-shaped guidew merissa was threaded through the cannulation needle without difficulty. A small incision was made. The dilator and 7.5 Chinese triple-lumen central venous catheter were serially threaded over the guidewire . The catheter was sutured to the skin at 20 cm with 3-0 silk sutures x2. All three ports withdrew and flushed without difficulty. The femoral artery was then identified under direct observation with the ultrasound. The femoral artery was cannulated on the first attempt with return of bright red, p ulsatile blood. A wire was threaded through the needle. The catheter was then placed over the wire. It was sutured into place with 3-0 silk suture x1. The catheter was attached to monitor with appro priate arterial waveform noted. Sterile dressing was applied and the procedure was terminated. ESTIMATED BLOOD LOSS: 5 mL. COMPLICATIONS: None.
--- NOTE | 2017-11-07 19:24 | PDOC.PN ---
- Subjective Encounter Start Date: 11/07/17 Encounter Start Time: 16:00 -: non-verbal Subjective: pt is intubated - off sedation and arousable but non conversant -: does follow simple commands. d/w nsg at bedside, no new issues - Objective Resuscitation Status: Resuscitation Status FULL:Full Resuscitation Vital Signs & Weight: Vital Signs (12 hours) Temp Pulse Pulse Resp BP BP Pulse Ox 11/07/17 18:34 90 36 H 93 L 11/07/17 18:00 29 H 11/07/17 17:41 94 159/75 H 11/07/17 17:00 99.6 F 11/07/17 16:22 98 126/47 L 11/07/17 16:00 33 H 11/07/17 14:00 25 H 11/07/17 13:52 92 136/50 L 11/07/17 13:51 98 26 H 100 11/07/17 12:00 23 H 11/07/17 11:48 98.5 F 94 32 H 111/52 L 100 11/07/17 10:43 97 129/57 L 11/07/17 10:00 30 H 11/07/17 09:01 98.9 F 99 25 H 135/53 L 100 11/07/17 08:46 98.7 F 108 H 32 H 128/50 L 100 11/07/17 08:00 98.7 F 99 30 H 90 L Weight Admit Weight 167 lb 3.2 oz Weight 169 lb 12.095 oz Most Recent Monitor Data Heart Rate from ECG 104 NIBP 155/56 NIBP BP-Mean 97 Respiration from ECG 32 SpO2 93 I&O: 11/06/17 11/07/17 11/08/17 06:59 06:59 06:59 Intake Total 853.1 307.9 704 Output Total 1260 1030 240 Balance -406.9 -722.1 464 Result Diagrams: 11/08/17 04:10 11/07/17 04:30 Phys Exam - Physical Examination Constitutional: NAD ETT in place, attached to vent coarse ventilator sounds throughout b/l Cardiovascular: RRR, no significant murmur, no rub Gastrointestinal: soft, no distention, positive bowel sounds Musculoskeletal: no edema, pulses present Dx/Plan - Plan * 82F initially p/w dizziness and weakness felt to be related to anemia. During EGD developed acute hypoxic event and required intubation with ventilatory support * * concern for GIB/ blood loss anemia * apprec GI c/s * s/p UGI and colo * s/p 2u prbc during hospitalization * continued hemodynamic stability w/o further loss acute hypoxic respiratory failure * stablized on ventilator * apprec PCCM c/s * continue to wean and monitor, SBT planned for AM * ? related to flash pulmonary event rel to hypertensive urgency with known hx of sev Dax Reg and CHF hx CHF hx sev mitral regurg diet: if no extub then t/c TF activity: as starr, with PT dvt ppx Review of Systems - Medications/Allergies Allergies/Adverse Reactions: Allergies Allergy/AdvReac Type Severity Reaction Status Date / Time No Known Allergies Allergy Verified 12/01/14 17:16 Medications: Current Medications Albuterol/Ipratropium (Duoneb) 3 ml NEB [id number] [facility] Last Admin: 11/08/17 07:53 Dose: 3 ml Amiodarone HCl (Cordarone) 200 mg PO DAILY [facility] Last Admin: 11/07/17 09:21 Dose: 200 mg Carvedilol (Coreg) 3.125 mg PO BID [facility] Last Admin: 11/07/17 19:41 Dose: 3.125 mg Ezetimibe (Zetia) 10 mg PO HS [facility] Last Admin: 11/07/17 19:41 Dose: 10 mg Hydralazine HCl (Apresoline) 10 mg SLOW IVP Q2H PRN PRN Reason: SBP GREATER THAN 160 Last Admin: 11/05/17 19:43 Dose: 10 mg Potassium Chloride/Sodium Chloride (1/2 Ns W/Kcl 20 Meq) 1,000 mls @ 75 mls/hr IV .[id number] [facility] Last Admin: 11/08/17 05:01 Dose: 1,000 mls Mineral Oil/White Petrolatum (Lacri-Lube Ointment) 0 gm EA EYE PRN PRN PRN Reason: Dry Eyes Pantoprazole Sodium (Protonix) 40 mg PO 2100 [facility] Last Admin: 11/07/17 19:42 Dose: 40 mg Propofol (Diprivan) 1,000 mg IV INF PRN; Protocol PRN Reason: TO ACHIEVE BARDALES SCORE 2-3 Stop: 11/08/17 11:59 Last Admin: 11/07/17 19:39 Dose: 1,000 mg Sertraline HCl (Zoloft) 25 mg PO DAILY [facility] Last Admin: 11/07/17 09:21 Dose: 25 mg Simvastatin (Zocor) 40 mg PO HS [facility] Last Admin: 11/07/17 19:42 Dose: 40 mg Sodium Chloride (Flush - Normal Saline) 10 ml IVF PRN PRN PRN Reason: Saline Flush Sodium Chloride (Flush - Normal Saline) 10 ml IVF PRN PRN PRN Reason: Saline Flush
[2017-11-07] MEDS: Ezetimibe 10 MG TAB PO SCH (19:41)
[2017-11-07] MEDS: Simvastatin 40 MG TAB PO SCH (19:42)
[2017-11-08] MEDS: 1/2 NS w/KCL 20 mEq 1,000 ML IV SCH ×3 (05:01→22:14)
[2017-11-08 08:22] LABS: Actual Bicarbonate (HCO3a) 23.9 mEq/L (22-26); Base Excess (BEa) -0.8 mEq/L (0 (+/-) 2.5); CO2 Tension 39.4 mmHg (35.0-45.0); Hematocrit-ABG 24.5 % (36.0-47.0); Hemoglobin (Hb) 7.5 g/dL (12.0-16.0); O2 Tension (PaO2) 78.2 mmHg (80.0-100.0)
[2017-11-08 08:23] LABS: Puncture Site ALINE
[2017-11-08] MEDS: Amiodarone 200 MG TAB PO SCH (10:13)
[2017-11-08] MEDS: Piperacillin/Tazobactam 3.375 GM in Sodium Chloride 0.9% 100 ML IVPB SCH ×3 (10:13→21:42)
[2017-11-08] MEDS: Carvedilol 3.125 MG TAB PO SCH ×2 (10:13→21:41)
--- NOTE | 2017-11-08 10:48 | PRG ---
DATE OF SERVICE: 11/08/2017 SERVICE: Pulmonary Medicine. INTERVAL HISTORY: The patient is doing fine from a respiratory standpoint. She demonstrates improvi ng strength today. She is much more awake and alert. She is following commands and moving all 4 ext remities. On a spontaneous breathing trial, she pulls very small volumes. That being said, we did c heck a gas at the end of the breathing trial and she seemed to be doing okay as far as acid base. At the end of the trial, she was pulling fairly small volumes and her respiratory rate was in the 40s. She is having increasing purulence to her secretions. PHYSICAL EXAMINATION: VITAL SIGNS: Afebrile currently with a T-max overnight of 100.6. HEENT: Normocephalic, atraumatic. Sclerae are white, conjunctivae pink. Oral mucosa is moist witho ut lesions. LUNGS: Decent air entry with rhonchi present. No prolonged expiratory phase. No crackles or wheezi ng are appreciated. HEART: Normal rate, regular. ABDOMEN: Soft, nontender, nondistended. Bowel sounds are positive. MUSCULOSKELETAL: No cyanosis or clubbing. There is no pitting in the bilateral lower extremities. NEUROLOGIC: Grossly nonfocal. LABORATORY DATA: Hemoglobin 8.0. Basic metabolic profile was otherwise unremarkable. ASSESSMENT: 1. Acute hypoxic respiratory failure. 2. Healthcare-associated pneumonia, suspected. 3. Sepsis without current end organ damage. 4. Acute hypoxic respiratory failure, resolving. 5. Flash pulmonary edema secondary to hypertensive emergency, resolving. 6. 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 7. Acute blood loss anemia. 8. Daniel-Cabrera respiratory pattern of breathing. DISCUSSION AND PLAN: I am going to empirically start some Zosyn. I will do Gram stain and culture o n the sputum. We will give her a long spontaneous breathing trial once again and exercise her throug hout the day while we minimize sedation. If we do not extubate her, we will work on getting her out of bed and into a chair. Physical Therapy consultation will be placed. Bronchoscopy will be conside red as the patient has very thick secretions at this point with several mucous plugs that are being l iberated. CRITICAL CARE TIME: 30 minutes.
--- NOTE | 2017-11-08 16:23 | PDOC.PN ---
- Subjective Encounter Start Date: 11/08/17 Encounter Start Time: 14:00 Subjective: nsg notes rev, keith ovn, pt intubated and arousable, follows -: simple commands appropriately answers yes/ no - Objective Resuscitation Status: Resuscitation Status FULL:Full Resuscitation Vital Signs & Weight: Vital Signs (12 hours) Temp Pulse Resp BP Pulse Ox 11/08/17 15:12 103 H 113/50 L 11/08/17 15:00 100 11/08/17 14:00 32 H 11/08/17 13:41 99 140/64 11/08/17 12:00 99.3 F 37 H 11/08/17 11:23 114 H 160/61 H 11/08/17 10:43 107 H 157/64 H 11/08/17 10:00 35 H 11/08/17 08:00 98.6 F 100 12 100 11/08/17 07:54 106 H 114/51 L 11/08/17 07:00 98.6 F 11/08/17 06:00 32 H Weight Admit Weight 167 lb 3.2 oz Weight 176 lb 9.444 oz Most Recent Monitor Data Heart Rate from ECG 104 NIBP 155/59 NIBP BP-Mean 101 Respiration from ECG 25 SpO2 100 I&O: 11/07/17 11/08/17 11/09/17 06:59 06:59 06:59 Intake Total 307.9 1628.4 Output Total 1030 465 243 Balance -722.1 1163.4 -243 Result Diagrams: 11/08/17 04:10 11/07/17 04:30 Phys Exam - Physical Examination Constitutional: NAD intubated, in chair HEENT: PERRLA, moist MMs coarse ventilator sounds, ET in place Cardiovascular: RRR, no significant murmur, no rub Gastrointestinal: soft, non-tender, positive bowel sounds Musculoskeletal: no edema, pulses present Dx/Plan - Plan 82F initially p/w dizziness and weakness felt to be related to anemia. During EGD developed acute hypoxic event and required intubation with ventilatory support * concern for GIB/ blood loss anemia * apprec GI c/s * s/p UGI and colo * s/p 2u prbc during hospitalization * continued hemodynamic stability w/o further loss acute hypoxic respiratory failure * stablized on ventilator * apprec PCCM c/s * continue to wean and monitor, SBT planned for AM * related to flash pulmonary event rel to hypertensive urgency with known hx of sev Dax Reg and CAD/ CABG (note this is a correction from prior note) hx CAD s/p CABG stable hx sev mitral regurg afib s/p prior ablation * HOLD eliquis 2/2 concern for bleeding above * NSR diet: TF activity: as starr, with PT dvt ppx d/w with nsg @ bedside Review of Systems - Medications/Allergies Allergies/Adverse Reactions: Allergies Allergy/AdvReac Type Severity Reaction Status Date / Time No Known Allergies Allergy Verified 12/01/14 17:16 Medications: Current Medications Albuterol/Ipratropium (Duoneb) 3 ml NEB [id number] [facility] Last Admin: 11/08/17 13:40 Dose: 3 ml Amiodarone HCl (Cordarone) 200 mg PO DAILY [facility] Last Admin: 11/08/17 10:13 Dose: 200 mg Carvedilol (Coreg) 3.125 mg PO BID [facility] Last Admin: 11/08/17 10:13 Dose: 3.125 mg Ezetimibe (Zetia) 10 mg PO HS [facility] Last Admin: 11/07/17 19:41 Dose: 10 mg Hydralazine HCl (Apresoline) 10 mg SLOW IVP Q2H PRN PRN Reason: SBP GREATER THAN 160 Last Admin: 11/05/17 19:43 Dose: 10 mg Potassium Chloride/Sodium Chloride (1/2 Ns W/Kcl 20 Meq) 1,000 mls @ 25 mls/hr IV .Q24H [facility] Last Admin: 11/08/17 09:43 Dose: Not Given Piperacillin Sod/Tazobactam (Sod 3.375 gm/ Sodium Chloride) 100 mls @ 200 mls/ hr IVPB 0400,1000,1600,2200 [facility] Last Admin: 11/08/17 15:51 Dose: 100 mls Mineral Oil/White Petrolatum (Lacri-Lube Ointment) 0 gm EA EYE PRN PRN PRN Reason: Dry Eyes Pantoprazole Sodium (Protonix) 40 mg PO 2100 [facility] Last Admin: 11/07/17 19:42 Dose: 40 mg Sertraline HCl (Zoloft) 25 mg PO DAILY [facility] Last Admin: 11/08/17 10:13 Dose: 25 mg Simvastatin (Zocor) 40 mg PO HS [facility] Last Admin: 11/07/17 19:42 Dose: 40 mg Sodium Chloride (Flush - Normal Saline) 10 ml IVF PRN PRN PRN Reason: Saline Flush Sodium Chloride (Flush - Normal Saline) 10 ml IVF PRN PRN PRN Reason: Saline Flush
--- NOTE | 2017-11-08 21:02 | PRG ---
DATE OF SERVICE: 11/08/2017 SUBJECTIVE: Ms. Deng has had no overt bleeding. She is on the vent. She is awake and responsiv e. She denies any abdominal pain. OBJECTIVE: VITAL SIGNS: Temperature is 99.9, pulse 105, blood pressure 128/68. GENERAL: She is in no acute distress, on the vent. LUNGS: Have some coarse breath sounds bilaterally. HEART: Regular rate and rhythm. ABDOMEN: Soft, nontender, nondistended. Bowel sounds are present. EXTREMITIES: No lower extremity edema. LABORATORY DATA: Hemoglobin is 8. She received transfusion yesterday. Her hemoglobin is up from 6. 9 yesterday morning. IMPRESSION: Iron deficiency anemia. There has been no overt bleeding. Upper endoscopy is negative. Colonoscopy is limited by the prep; however, there were no large lesions identified and there is no active bleeding. RECOMMENDATIONS: Continue to follow trend of the hemoglobin. I will sign off for now. Please call if GI can be of assistance.
[2017-11-08] MEDS: Ezetimibe 10 MG TAB PO SCH (21:42)
[2017-11-08] MEDS: Simvastatin 40 MG TAB PO SCH (21:42)
[2017-11-09] MEDS: Piperacillin/Tazobactam 3.375 GM in Sodium Chloride 0.9% 100 ML IVPB SCH ×4 (03:34→21:23)
[2017-11-09 04:42] LABS: Anisocytosis SLIGHT = 6-15 cells (100X) (0-5/hpf); Band 18 % (5-11); Eosinophils 1 % (0-10); Hemoglobin 8.2 g/dL (12.0-16.0); Lymphocytes 8 % (21-51); MDiff Complete? YES; Mean Corpuscular HGB CONC 32.5 g/dL (32.0-36.0); Mean Corpuscular Hemoglobin 32.2 pg (27.0-31.0); Mean Platelet Volume 8.1 fL (7.4-10.4); Monocytes 6 % (0-10); Neutrophil 67 % (42-75); Platelet Count 156 thou/uL (130-400); RBC Distribution Width 15.5 % (11.5-14.5); Red Blood Cell (RBC) Count 2.55 mill/uL (4.20-5.40)
[2017-11-09 04:49] LABS: Anion Gap 13 mmol/L (10-20); BUN (Urea Nitrogen) 41 mg/dL (9.8-20.1); Calc. Creatinine Clearance 57 mL/min (70-130); Calcium 8.4 mg/dL (7.8-10.44); Carbon Dioxide 21 mmol/L (23-31); Chloride 107 mmol/L (98-107); Estimated GFR-MDRD 60; Glucose 172 mg/dL (83-110); Magnesium 2.6 mg/dL (1.6-2.6); Potassium 4.7 mmol/L (3.5-5.1); Sodium 136 mmol/L (136-145)
[2017-11-09] MEDS: Amiodarone 200 MG TAB PO SCH (08:00)
[2017-11-09] MEDS: Carvedilol 3.125 MG TAB PO SCH ×2 (08:00→21:23)
--- NOTE | 2017-11-09 12:52 | PRG ---
DATE OF SERVICE: 11/09/2017 SERVICE: Pulmonary Medicine. INTERVAL HISTORY: The patient is doing fine from cardiovascular and respiratory standpoint. She has no complaints of chest pain or shortness of breath. She is on spontaneous breathing trials and has done well on this for a period of 4 hours. She still breathes comfortably. Her shallow breathing in dex is right on the borderline. That being said, I am fairly confident that she is going to do well. Her secretions are much improved today. OBJECTIVE: VITAL SIGNS: Afebrile, pulse 112, blood pressure 122/60, respirations 33, saturation 100% on 31% FiO 2 today. HEENT: Normocephalic, atraumatic. Sclerae are white, conjunctivae pink. Oral mucosa is moist witho ut lesions. LUNGS: Decent air entry. Rhonchi are present, but much less extensive. No crackles or wheezing cuong reciated. HEART: Normal rate, regular. ABDOMEN: Soft, nontender, nondistended. Bowel sounds are positive. MUSCULOSKELETAL: No cyanosis or clubbing. No pitting in the bilateral lower extremities. NEUROLOGIC: Grossly nonfocal. LABORATORY DATA: WBC 12.0, hemoglobin 8.2, platelets 156,000. Basic metabolic profile is completely unremarkable except for bicarb is down trending to 21. Phosphorus and magnesium fall within the nor mal limits. Respiratory culture has many white blood cells with multiple different organisms includi ng gram negative diplococci and gram positive cocci in pairs. ASSESSMENT: 1. Acute hypoxic respiratory failure, resolving. 2. Healthcare-associated pneumonia, secondary to overt aspiration. 3. Sepsis without current end-organ damage. 4. Flash pulmonary edema secondary to hypertensive emergency, improving. 5. 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 6. Acute blood loss anemia. 7. Daniel-Cabrera respiratory pattern of breathing, resolved. DISCUSSION AND PLAN: We will continue empiric antibiotics and nebulized medication. She has complet ed her CPAP trial and we are going to move forward with extubation. Hopefully, she will be able to c lear her airway. Pulmonary Critical Care will continue to follow in this location. CRITICAL CARE TIME: 30 minutes.
[2017-11-09] MEDS: Simvastatin 40 MG TAB PO SCH (21:23)
[2017-11-09] MEDS: Ezetimibe 10 MG TAB PO SCH (21:23)
[2017-11-10] MEDS: Piperacillin/Tazobactam 3.375 GM in Sodium Chloride 0.9% 100 ML IVPB SCH ×4 (04:47→22:43)
[2017-11-10 05:29] LABS: #Eosinphils 0.1 thou/uL (0.0-0.7); #Monocytes 0.3 thou/uL (0.11-0.59); #Neutrophils 7.4 thou/uL (1.40-6.50); %Eosinophils 0.8 % (0.0-10.0); %Lymphocytes 11.1 % (21.0-51.0); %Monocytes 3.7 % (0.0-10.0); %Neutrophils 84.4 % (42.0-75.0); Hemoglobin 8.1 g/dL (12.0-16.0); Mean Corpuscular HGB CONC 30.7 g/dL (32.0-36.0); Mean Corpuscular Hemoglobin 30.5 pg (27.0-31.0); Mean Corpuscular Volume 99.4 fl (81.0-99.0); Mean Platelet Volume 7.6 fL (7.4-10.4); Platelet Count 224 thou/uL (130-400); Red Blood Cell (RBC) Count 2.64 mill/uL (4.20-5.40); White Blood Cell (WBC) Count 8.8 thou/uL (4.8-10.8)
[2017-11-10 06:01] LABS: Anion Gap 9 mmol/L (10-20); BUN (Urea Nitrogen) 42 mg/dL (9.8-20.1); Calc. Creatinine Clearance 57 mL/min (70-130); Calcium 8.8 mg/dL (7.8-10.44); Carbon Dioxide 26 mmol/L (23-31); Chloride 107 mmol/L (98-107); Estimated GFR-MDRD 60; Glucose 125 mg/dL (83-110); Magnesium 2.4 mg/dL (1.6-2.6); Phosphorus 3.8 mg/dL (2.3-4.7); Potassium 4.3 mmol/L (3.5-5.1); Sodium 138 mmol/L (136-145)
[2017-11-10] MEDS: Amiodarone 200 MG TAB PO SCH (09:31)
[2017-11-10] MEDS: Carvedilol 3.125 MG TAB PO SCH ×2 (09:32→20:43)
[2017-11-10] MEDS: 1/2 NS w/KCL 20 mEq 1,000 ML IV SCH (09:42)
--- NOTE | 2017-11-10 12:22 | PRG ---
DATE OF SERVICE: 11/10/2017 SERVICE: Pulmonary Medicine. INTERVAL HISTORY: The patient is doing absolutely fantastic since extubation yesterday. She denies any shortness of breath or chest discomfort. There were no overnight events. PHYSICAL EXAMINATION: VITAL SIGNS: Afebrile, pulse 102, blood pressure 117/57, respirations 34 and saturation 96% on 4 lit ers nasal cannula. GENERAL: The patient is awake and alert, in no apparent distress. LUNGS: Decent air entry. There are crackles present dependently. HEART: Normal rate and regular. ABDOMEN: Soft, nontender and nondistended. Bowel sounds are positive. MUSCULOSKELETAL: No cyanosis or clubbing. There is trace pitting in the bilateral lower extremities . NEUROLOGIC: Grossly nonfocal. LABORATORY DATA: WBC 8.8, hemoglobin 8.1 and platelets 244,000. Creatinine 0.90, BUN 42 and anion g ap 9. Basic metabolic profile, magnesium and phosphorus are all unremarkable. ASSESSMENT: 1. Acute hypoxic respiratory failure, improving. 2. Healthcare-associated pneumonia secondary to overt aspiration. 3. Sepsis without end organ damage. 4. Flash pulmonary edema secondary to hypertensive emergency, resolved. 5. 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 6. Acute blood loss anemia. DISCUSSION AND PLAN: From my perspective, she is stable for transition out of the ICU. That being s aid, she needs significant assistance and probably at this point, she would only be downgrade to the IMCU. Pulmonary Critical Care will continue to follow her for this part of the hospital stay. We wi ll continue our antibiotics directed at her possible pneumonia. Aggressive mobilization efforts will be continued. Cummins catheter to be removed.
--- NOTE | 2017-11-10 19:37 | PDOC.PN ---
- Subjective Encounter Start Date: 11/09/17 Encounter Start Time: 13:00 Subjective: LATE ENTRY -: nsg notes rev, keith ovn, no new issues - Objective Resuscitation Status: Resuscitation Status FULL:Full Resuscitation Vital Signs & Weight: Vital Signs (12 hours) Temp Pulse Resp Pulse Ox 11/10/17 18:44 105 H 37 H 96 11/10/17 16:00 97.7 F 11/10/17 14:27 102 H 33 H 94 L 11/10/17 12:00 98.6 F 11/10/17 08:00 97.3 F L 119 H 26 H 98 Weight Admit Weight 167 lb 3.2 oz Weight 174 lb 2.643 oz Most Recent Monitor Data Heart Rate from ECG 109 NIBP 127/51 NIBP BP-Mean 87 Respiration from ECG 18 SpO2 97 I&O: 11/09/17 11/10/17 11/11/17 06:59 06:59 06:59 Intake Total 2130 1004 990 Output Total 2976 585 181 Balance -846 419 809 Result Diagrams: 11/11/17 04:29 11/10/17 04:19 Additional Labs: Accuchecks 11/10/17 16:25 POC Glucose 162 H Dx/Plan - Plan * 82F initially p/w dizziness and weakness felt to be related to anemia. During EGD developed acute hypoxic event and required intubation with ventilatory support * concern for GIB/ blood loss anemia * apprec GI c/s * s/p UGI and colo * s/p 2u prbc during hospitalization * continued hemodynamic stability w/o further loss acute hypoxic respiratory failure 2/2 lash pulmonary event rel to hypertensive urgency with known hx of sev Dax Reg and CAD/ CABG * stablized on ventilator * apprec PCCM c/s * continue to wean and monitor, SBT planned for AM hx CAD s/p CABG stable hx sev mitral regurg afib s/p prior ablation * HOLD eliquis 2/2 concern for bleeding above * NSR diet: TF activity: as starr, with PT dvt ppx d/w with nsg @ bedside Review of Systems - Medications/Allergies Allergies/Adverse Reactions: Allergies Allergy/AdvReac Type Severity Reaction Status Date / Time No Known Allergies Allergy Verified 12/01/14 17:16 Medications: Current Medications Albuterol/Ipratropium (Duoneb) 3 ml NEB [id number] [facility] Last Admin: 11/12/17 07:46 Dose: 3 ml Amiodarone HCl (Cordarone) 200 mg PO DAILY [facility] Last Admin: 11/12/17 09:49 Dose: 200 mg Carvedilol (Coreg) 3.125 mg PO BID [facility] Last Admin: 11/12/17 09:50 Dose: 3.125 mg Digoxin (Lanoxin) 0.5 mg SLOW IVP NOW [facility] Stop: 11/12/17 10:00 Last Admin: 11/12/17 09:49 Dose: 0.5 mg Ezetimibe (Zetia) 10 mg PO HS [facility] Last Admin: 11/11/17 21:04 Dose: 10 mg Furosemide (Lasix) 40 mg PO DAILY-AC [facility] Furosemide (Lasix) 40 mg PO NOW [facility] Stop: 11/12/17 10:00 Last Admin: 11/12/17 09:49 Dose: 40 mg Hydralazine HCl (Apresoline) 10 mg SLOW IVP Q2H PRN PRN Reason: SBP GREATER THAN 160 Last Admin: 11/05/17 19:43 Dose: 10 mg Piperacillin Sod/Tazobactam (Sod 3.375 gm/ Sodium Chloride) 100 mls @ 200 mls/ hr IVPB 0400,1000,1600,2200 [facility] Last Admin: 11/12/17 09:50 Dose: 100 mls Lisinopril (Zestril) 5 mg PO BID [facility] Last Admin: 11/12/17 09:50 Dose: 5 mg Mineral Oil/White Petrolatum (Lacri-Lube Ointment) 0 gm EA EYE PRN PRN PRN Reason: Dry Eyes Pantoprazole Sodium (Protonix) 40 mg PO 2100 [facility] Last Admin: 11/11/17 21:04 Dose: 40 mg Sertraline HCl (Zoloft) 25 mg PO DAILY [facility] Last Admin: 11/12/17 09:50 Dose: 25 mg Simvastatin (Zocor) 40 mg PO HS [facility] Last Admin: 11/11/17 21:05 Dose: 40 mg Sodium Chloride (Flush - Normal Saline) 10 ml IVF PRN PRN PRN Reason: Saline Flush Last Admin: 11/11/17 21:03 Dose: 10 ml Sodium Chloride (Flush - Normal Saline) 10 ml IVF PRN PRN PRN Reason: Saline Flush Spironolactone (Aldactone) 25 mg PO QAM-F [facility] Spironolactone (Aldactone) 25 mg PO NOW [facility] Stop: 11/12/17 10:00 Last Admin: 11/12/17 09:49 Dose: 25 mg
[2017-11-10] MEDS: Ezetimibe 10 MG TAB PO SCH (20:42)
[2017-11-10] MEDS: Simvastatin 40 MG TAB PO SCH (20:42)
--- NOTE | 2017-11-10 22:17 | PDOC.PN ---
- Subjective Encounter Start Date: 11/10/17 Encounter Start Time: 14:00 Subjective: nsg notes rev, keith ovn - Objective Resuscitation Status: Resuscitation Status FULL:Full Resuscitation Vital Signs & Weight: Vital Signs (12 hours) Temp Pulse Resp Pulse Ox 11/10/17 20:00 98.0 F 11/10/17 18:44 105 H 37 H 96 11/10/17 16:00 97.7 F 11/10/17 14:27 102 H 33 H 94 L 11/10/17 12:00 98.6 F Weight Admit Weight 167 lb 3.2 oz Weight 174 lb 2.643 oz Most Recent Monitor Data Heart Rate from ECG 108 NIBP 140/66 NIBP BP-Mean 95 Respiration from ECG 32 SpO2 97 I&O: 11/09/17 11/10/17 11/11/17 06:59 06:59 06:59 Intake Total 2130 1004 1080 Output Total 2976 585 181 Balance -846 419 899 Result Diagrams: 11/11/17 04:29 11/10/17 04:19 Additional Labs: Accuchecks 11/10/17 11/10/17 20:48 16:25 POC Glucose 173 H 162 H Dx/Plan - Plan * 82F initially p/w dizziness and weakness felt to be related to anemia. During EGD developed acute hypoxic event and required intubation with ventilatory support * concern for GIB/ blood loss anemia * apprec GI c/s * s/p UGI and colo * s/p 2u prbc during hospitalization * continued hemodynamic stability w/o further loss acute hypoxic respiratory failure 2/2 lash pulmonary event rel to hypertensive urgency with known hx of sev Dax Reg and CAD/ CABG * extubated * apprec PCCM c/s * O2 support as needed and wean as tolerated, start working with PT and OT and ICS hx CAD s/p CABG stable hx sev mitral regurg afib s/p prior ablation * HOLD eliquis 2/2 concern for bleeding above * NSR diet: (P) speech for diet recs activity: as starr, with PT dvt ppx Review of Systems - Medications/Allergies Allergies/Adverse Reactions: Allergies Allergy/AdvReac Type Severity Reaction Status Date / Time No Known Allergies Allergy Verified 12/01/14 17:16 Medications: Current Medications Albuterol/Ipratropium (Duoneb) 3 ml NEB [id number] [facility] Last Admin: 11/10/17 18:44 Dose: 3 ml Amiodarone HCl (Cordarone) 200 mg PO DAILY [facility] Last Admin: 11/10/17 09:31 Dose: 200 mg Carvedilol (Coreg) 3.125 mg PO BID [facility] Last Admin: 11/10/17 20:43 Dose: 3.125 mg Ezetimibe (Zetia) 10 mg PO HS [facility] Last Admin: 11/10/17 20:42 Dose: 10 mg Hydralazine HCl (Apresoline) 10 mg SLOW IVP Q2H PRN PRN Reason: SBP GREATER THAN 160 Last Admin: 11/05/17 19:43 Dose: 10 mg Potassium Chloride/Sodium Chloride (1/2 Ns W/Kcl 20 Meq) 1,000 mls @ 25 mls/hr IV .Q24H [facility] Last Admin: 11/10/17 09:42 Dose: Not Given Piperacillin Sod/Tazobactam (Sod 3.375 gm/ Sodium Chloride) 100 mls @ 200 mls/ hr IVPB 0400,1000,1600,2200 [facility] Last Admin: 11/10/17 16:18 Dose: 100 mls Mineral Oil/White Petrolatum (Lacri-Lube Ointment) 0 gm EA EYE PRN PRN PRN Reason: Dry Eyes Pantoprazole Sodium (Protonix) 40 mg PO 2100 [facility] Last Admin: 11/10/17 20:42 Dose: 40 mg Sertraline HCl (Zoloft) 25 mg PO DAILY [facility] Last Admin: 11/10/17 09:32 Dose: 25 mg Simvastatin (Zocor) 40 mg PO HS [facility] Last Admin: 11/10/17 20:42 Dose: 40 mg Sodium Chloride (Flush - Normal Saline) 10 ml IVF PRN PRN PRN Reason: Saline Flush Sodium Chloride (Flush - Normal Saline) 10 ml IVF PRN PRN PRN Reason: Saline Flush
[2017-11-11] MEDS: Piperacillin/Tazobactam 3.375 GM in Sodium Chloride 0.9% 100 ML IVPB SCH ×4 (05:31→21:02)
[2017-11-11 05:39] LABS: Hemoglobin 7.9 g/dL (12.0-16.0)
[2017-11-11] MEDS: 1/2 NS w/KCL 20 mEq 1,000 ML IV SCH (10:48)
[2017-11-11] MEDS: Carvedilol 3.125 MG TAB PO SCH ×2 (10:49→21:04)
[2017-11-11] MEDS: Amiodarone 200 MG TAB PO SCH (10:49)
[2017-11-11] MEDS ORDERED: Furosemide 40 MG/4 ML VIAL SLOW IVP SCH (12:30)
--- NOTE | 2017-11-11 12:30 | PRG ---
DATE OF SERVICE: 11/11/2017 SERVICE: Pulmonary Medicine. INTERVAL HISTORY: The patient is doing absolutely fantastic from a respiratory standpoint. She yessi es any chest pain, nausea, vomiting or shortness of breath. She got out of bed and into a chair for breakfast and lunch. In doing so, she did not have any dizziness. She remains extraordinarily weak, but otherwise she is recovering very nicely. She requires oxygen still. She is not able to liberat e it from yet. She is a little bit volume overloaded. She went into atrial fibrillation with a rapi d rate last night. PHYSICAL EXAMINATION: VITAL SIGNS: Afebrile, pulse 128, blood pressure 133/56, respirations 25, saturation 98% on 2 liters nasal cannula. GENERAL: The patient is awake, alert, no apparent distress. LUNGS: Decent air entry. There are extensive crackles throughout bilateral lung yu without whee zing or rhonchi. HEART: Normal rate, regular. ABDOMEN: Soft, nontender, and nondistended. Bowel sounds are positive. MUSCULOSKELETAL: No cyanosis or clubbing. No pitting in the bilateral lower extremities. NEUROLOGIC: Grossly nonfocal. LABORATORY DATA: Hemoglobin 7.9. ASSESSMENT: 1. Acute hypoxic respiratory failure, slowly improving. 2. Atrial fibrillation with rapid ventricular response. 3. Healthcare-associated pneumonia secondary to overt aspiration. 4. Sepsis without end organ damage. 5. Flash pulmonary edema secondary to hypertensive emergency in the endoscopy unit. 6. 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 7. Acute blood loss anemia. DISCUSSION AND PLAN: The patient's hemoglobins are roughly stable. We will get her to the floor and repeat hemoglobin tomorrow morning. I will give her a dose of Lasix today and resume some of her ra te control medication. Cardiology consultation will be placed.
--- NOTE | 2017-11-11 17:56 | CON ---
DATE OF CONSULTATION: 11/11/2017 Critical care note time 30 minutes. HISTORY OF PRESENT ILLNESS: The patient is an 82-year-old woman with a history of coronary artery disease and atrial fibrillation, who developed acute respiratory failure. The patient has a long history of coronary artery disease , and previously undergone PTCA and stent placement. She has done well for many years. Most recently she underwent an ablation for atrial fibrillation. The patient presented to the hospital with dizziness and weakness. She was found to have evidence of a GI hemorrhage with low hemoglobin when she was taken off Eliquis. She underwent an endoscopy and developed acute pulmonary edema. She became markedly hypertensive. The patient denies having any chest discomfort. PAST MEDICAL HISTORY: 1. Coronary artery disease. 2. Atrial fibrillation. 3. Hypertension. 4. History of gastric ulcer. 5. Chronic renal failure. 6. Diabetes mellitus. PAST SURGICAL HISTORY: Appendectomy, hernia repair, cholecystectomy and cataract surgery. ALLERGIES: None. SOCIAL HISTORY: Nonsmoker. PHYSICAL EXAMINATION: GENERAL: This is an ill-appearing woman who is pale with a blood pressure of 133/58. NECK: Full. LUNGS:Crackles throughout both lung yu. HEART: Irregular rate and rhythm, normal S1 and S2. ABDOMEN: Nondistended. EXTREMITIES: Showed trace edema. LABORATORY RESULTS: Her white blood cell count was 8.8, hemoglobin 7.9, hematocrit 24.6, platelets are 224,000. Sodium is 138, potassium 4.3, chloride 107, bicarbonate 26, BUN 42, creatinine is 0.9. Her EKG revealed her to have normal sinus rhythm with frequent premature ectopic complexes, voltage criteria for left ventricular hypertrophy, nonspecific interventricular conduction delay. IMPRESSION: 1. Gastrointestinal hemorrhage. 2. Acute pulmonary edema. 3. History of coronary artery disease, status post percutaneous transluminal coronary angioplasty and stent placement. 4. History of ischemic cardiomyopathy. 5. Hypertension. PLAN: This patient went into pulmonary edema following her colonoscopy. From a cardiac standpoint, she will need to be off her anticoagulation therapy. We would agree with the patient being treated with IV Lasix. We will control the patient's heart rate with amiodarone. We will repeat the patient's echocardiogram. We will follow this patient with you through her hospitalization. NORMAN
[2017-11-11] MEDS: Lisinopril 5 MG TAB PO SCH (20:00)
[2017-11-11] MEDS: Ezetimibe 10 MG TAB PO SCH (21:04)
[2017-11-11] MEDS: Simvastatin 40 MG TAB PO SCH (21:05)
--- NOTE | 2017-11-11 23:59 | PDOC.PN ---
- Subjective Encounter Start Date: 11/11/17 Encounter Start Time: 19:00 Subjective: nsg notes rev, keith ovn, no new c/o - Objective Resuscitation Status: Resuscitation Status FULL:Full Resuscitation Vital Signs & Weight: Vital Signs (12 hours) Temp Pulse Resp BP Pulse Ox 11/11/17 22:36 102 H 19 95 11/11/17 20:00 98.1 F 111 H 31 H 116/65 92 L 11/11/17 16:00 97.6 F 11/11/17 13:28 104 H 31 H 100 11/11/17 12:00 97.8 F Weight Admit Weight 167 lb 3.2 oz Weight 180 lb 12.465 oz Most Recent Monitor Data Heart Rate from ECG 111 NIBP 134/49 NIBP BP-Mean 97 Respiration from ECG 25 SpO2 92 I&O: 11/10/17 11/11/17 11/12/17 06:59 06:59 06:59 Intake Total 1004 1280 1260 Output Total 814 431 6318 Balance 419 849 -65 Result Diagrams: 11/11/17 04:29 11/13/17 03:54 Additional Labs: Accuchecks 11/11/17 11/11/17 11/11/17 21:11 16:21 11:05 POC Glucose 161 H 176 H 168 H 11/11/17 06:38 POC Glucose 134 H Phys Exam - Physical Examination Constitutional: NAD HEENT: PERRLA, sclera anicteric slightly dry mm Respiratory: no wheezing, no rales, no rhonchi, clear to auscultation bilateral diminisehd throughout with decreased air mvmt Cardiovascular: RRR, no rub Gastrointestinal: soft, non-tender, positive bowel sounds Musculoskeletal: pulses present Dx/Plan - Plan * 82F initially p/w dizziness and weakness felt to be related to anemia. During EGD developed acute hypoxic event and required intubation with ventilatory support * concern for GIB/ blood loss anemia * apprec GI c/s * s/p UGI and colo * s/p 2u prbc during hospitalization * continued hemodynamic stability w/o further loss acute hypoxic respiratory failure 2/2 lash pulmonary event rel to hypertensive urgency with known hx of sev Dax Reg and CAD/ CABG * extubated * apprec PCCM c/s * O2 support as needed and wean as tolerated, start working with PT and OT and ICS * due to high risk hemodynamics, has been difficult to wean hx CAD s/p CABG stable hx sev mitral regurg afib s/p prior ablation * HOLD eliquis 2/2 concern for bleeding above * NSR diet: (P) speech for diet recs activity: as starr, with PT dvt ppx Review of Systems - Medications/Allergies Allergies/Adverse Reactions: Allergies Allergy/AdvReac Type Severity Reaction Status Date / Time No Known Allergies Allergy Verified 12/01/14 17:16 Medications: Current Medications Albuterol/Ipratropium (Duoneb) 3 ml NEB [id number] [facility] Last Admin: 11/13/17 00:23 Dose: Not Given Amiodarone HCl (Cordarone) 200 mg PO DAILY [facility] Last Admin: 11/12/17 09:49 Dose: 200 mg Carvedilol (Coreg) 3.125 mg PO BID [facility] Last Admin: 11/12/17 21:09 Dose: 3.125 mg Ezetimibe (Zetia) 10 mg PO HS [facility] Last Admin: 11/12/17 21:09 Dose: 10 mg Furosemide (Lasix) 40 mg PO DAILY-[facility] Hydralazine HCl (Apresoline) 10 mg SLOW IVP Q2H PRN PRN Reason: SBP GREATER THAN 160 Last Admin: 11/05/17 19:43 Dose: 10 mg Piperacillin Sod/Tazobactam (Sod 3.375 gm/ Sodium Chloride) 100 mls @ 200 mls/ hr IVPB 0400,1000,1600,2200 [facility] Last Admin: 11/13/17 04:38 Dose: 100 mls Lisinopril (Zestril) 5 mg PO BID [facility] Last Admin: 11/12/17 21:09 Dose: 5 mg Mineral Oil/White Petrolatum (Lacri-Lube Ointment) 0 gm EA EYE PRN PRN PRN Reason: Dry Eyes Pantoprazole Sodium (Protonix) 40 mg PO 2100 [facility] Last Admin: 11/12/17 21:10 Dose: 40 mg Sertraline HCl (Zoloft) 25 mg PO DAILY [facility] Last Admin: 11/12/17 09:50 Dose: 25 mg Simvastatin (Zocor) 40 mg PO HS [facility] Last Admin: 11/12/17 21:10 Dose: 40 mg Sodium Chloride (Flush - Normal Saline) 10 ml IVF PRN PRN PRN Reason: Saline Flush Last Admin: 11/11/17 21:03 Dose: 10 ml Sodium Chloride (Flush - Normal Saline) 10 ml IVF PRN PRN PRN Reason: Saline Flush Spironolactone (Aldactone) 25 mg PO QA- [facility]
[2017-11-12] MEDS: Piperacillin/Tazobactam 3.375 GM in Sodium Chloride 0.9% 100 ML IVPB SCH ×4 (04:06→21:10)
[2017-11-12] MEDS ORDERED: Digoxin 0.5 MG/2 ML AMP SLOW IVP SCH (08:30)
[2017-11-12] MEDS ORDERED: Furosemide 40 MG TAB PO SCH (08:30)
[2017-11-12] MEDS ORDERED: Spironolactone 25 MG TAB PO SCH (08:30)
[2017-11-12] MEDS: Furosemide 40 MG/4 ML VIAL SLOW IVP SCH ×2 (08:49→10:32)
--- NOTE | 2017-11-12 09:33 | PRG ---
DATE OF SERVICE: 11/12/2017 SERVICE: Pulmonary Medicine. INTERVAL HISTORY: The patient is doing fairly well from a cardiovascular and respiratory standpoint. She denies any current fevers, chills, nausea, vomiting or chest discomfort. Otherwise, there has been no interval change to her condition. She is breathing comfortably. She remains extraordinarily weak. PHYSICAL EXAMINATION: VITAL SIGNS: Afebrile, pulse 109, blood pressure 128/41, respirations 24, saturation 96% on 3 liters nasal cannula. GENERAL: The patient is awake, alert, no apparent distress. LUNGS: Decent air entry. Minimal crackles are present. HEART: Normal rate, regular. ABDOMEN: Soft, nontender, nondistended. Bowel sounds are positive. MUSCULOSKELETAL: No cyanosis or clubbing. There is no pitting in the bilateral lower extremities. NEUROLOGIC: Grossly nonfocal. LABORATORY DATA: Blood sugars ranged from 134-176. ASSESSMENT: 1. Acute hypoxic respiratory failure, improving. 2. Atrial fibrillation with rapid ventricular response. 3. Healthcare-associated pneumonia secondary to overt aspiration. 4. Sepsis without end organ damage. 5. Flash pulmonary edema secondary to hypertensive emergency in the endoscopy unit. 6. 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 7. Acute blood loss anemia, stable. DISCUSSION AND PLAN: She remains stable for transition to the telemetry unit. Pulmonary or Critical Care will continue to follow. IV Lasix will be interrupted. I will repeat a hemoglobin tomorrow mo rning.
[2017-11-12] MEDS: Amiodarone 200 MG TAB PO SCH (09:49)
[2017-11-12] MEDS: Lisinopril 5 MG TAB PO SCH ×2 (09:50→21:09)
[2017-11-12] MEDS: Carvedilol 3.125 MG TAB PO SCH ×2 (09:50→21:09)
[2017-11-12] MEDS: Ezetimibe 10 MG TAB PO SCH (21:09)
[2017-11-12] MEDS: Simvastatin 40 MG TAB PO SCH (21:10)
--- NOTE | 2017-11-12 23:32 | PDOC.PN ---
- Subjective Encounter Start Date: 11/12/17 Encounter Start Time: 18:00 Subjective: nsg notes rev, keith ovn, no new c/o - Objective Resuscitation Status: Resuscitation Status FULL:Full Resuscitation Vital Signs & Weight: Vital Signs (12 hours) Temp Pulse Resp BP Pulse Ox 11/12/17 21:09 106 H 139/61 11/12/17 20:00 98.5 F 106 H 23 H 95 11/12/17 18:51 91 28 H 11/12/17 16:00 97.7 F 98 21 H 92 L 11/12/17 13:45 92 23 H 11/12/17 12:00 98.1 F Weight Admit Weight 167 lb 3.2 oz Weight 179 lb 10.828 oz Most Recent Monitor Data Heart Rate from ECG 105 NIBP 139/61 NIBP BP-Mean 80 Respiration from ECG 23 SpO2 95 I&O: 11/11/17 11/12/17 11/13/17 06:59 06:59 06:59 Intake Total 1280 1480 840 Output Total 431 1325 1100 Balance 849 155 -260 Result Diagrams: 11/11/17 04:29 11/13/17 03:54 Additional Labs: Accuchecks 11/12/17 11/12/17 11/12/17 21:09 16:38 12:45 POC Glucose 144 H 195 H 164 H 11/12/17 06:36 POC Glucose 150 H Phys Exam - Physical Examination Constitutional: NAD seated in hospital chair watching tv HEENT: PERRLA, sclera anicteric slightly dry mm Respiratory: no wheezing, no rales, no rhonchi, clear to auscultation bilateral diminished througout with marginal air mvmt Cardiovascular: RRR, no significant murmur, no rub Gastrointestinal: soft, non-tender, no distention, positive bowel sounds Musculoskeletal: pulses present Neurological: moves all 4 limbs Dx/Plan - Plan * 82F initially p/w dizziness and weakness felt to be related to anemia. During EGD developed acute hypoxic event and required intubation with ventilatory support * concern for GIB/ blood loss anemia * apprec GI c/s * s/p UGI and colo * s/p 2u prbc during hospitalization * continued hemodynamic stability w/o further loss acute hypoxic respiratory failure 2/2 lash pulmonary event rel to hypertensive urgency with known hx of sev Dax Reg and CAD/ CABG * extubated * apprec PCCM c/s * O2 support as needed and wean as tolerated, start working with PT and OT and ICS * due to high risk hemodynamics, has been difficult to wean hx CAD s/p CABG stable hx sev mitral regurg afib s/p prior ablation * HOLD eliquis 2/2 concern for bleeding above * NSR physical deconditioning - PT diet: (P) speech for diet recs activity: as starr, with PT dvt ppx t/c initiating next site of care discussions with patient Review of Systems - Medications/Allergies Allergies/Adverse Reactions: Allergies Allergy/AdvReac Type Severity Reaction Status Date / Time No Known Allergies Allergy Verified 12/01/14 17:16 Medications: Current Medications Albuterol/Ipratropium (Duoneb) 3 ml NEB [id number] [facility] Last Admin: 11/13/17 00:23 Dose: Not Given Amiodarone HCl (Cordarone) 200 mg PO DAILY [facility] Last Admin: 11/12/17 09:49 Dose: 200 mg Carvedilol (Coreg) 3.125 mg PO BID [facility] Last Admin: 11/12/17 21:09 Dose: 3.125 mg Ezetimibe (Zetia) 10 mg PO HS [facility] Last Admin: 11/12/17 21:09 Dose: 10 mg Furosemide (Lasix) 40 mg PO DAILY-[facility] Hydralazine HCl (Apresoline) 10 mg SLOW IVP Q2H PRN PRN Reason: SBP GREATER THAN 160 Last Admin: 11/05/17 19:43 Dose: 10 mg Piperacillin Sod/Tazobactam (Sod 3.375 gm/ Sodium Chloride) 100 mls @ 200 mls/ hr IVPB 0400,1000,1600,2200 [facility] Last Admin: 11/13/17 04:38 Dose: 100 mls Lisinopril (Zestril) 5 mg PO BID [facility] Last Admin: 11/12/17 21:09 Dose: 5 mg Mineral Oil/White Petrolatum (Lacri-Lube Ointment) 0 gm EA EYE PRN PRN PRN Reason: Dry Eyes Pantoprazole Sodium (Protonix) 40 mg PO 2100 [facility] Last Admin: 11/12/17 21:10 Dose: 40 mg Sertraline HCl (Zoloft) 25 mg PO DAILY [facility] Last Admin: 11/12/17 09:50 Dose: 25 mg Simvastatin (Zocor) 40 mg PO HS [facility] Last Admin: 11/12/17 21:10 Dose: 40 mg Sodium Chloride (Flush - Normal Saline) 10 ml IVF PRN PRN PRN Reason: Saline Flush Last Admin: 11/11/17 21:03 Dose: 10 ml Sodium Chloride (Flush - Normal Saline) 10 ml IVF PRN PRN PRN Reason: Saline Flush Spironolactone (Aldactone) 25 mg PO QAM- [facility]
[2017-11-13] MEDS: Piperacillin/Tazobactam 3.375 GM in Sodium Chloride 0.9% 100 ML IVPB SCH ×3 (04:38→16:36)
[2017-11-13 04:47] LABS: Anion Gap 11 mmol/L (10-20); BUN (Urea Nitrogen) 33 mg/dL (9.8-20.1); Calc. Creatinine Clearance 59 mL/min (70-130); Calcium 8.6 mg/dL (7.8-10.44); Carbon Dioxide 27 mmol/L (23-31); Chloride 105 mmol/L (98-107); Estimated GFR-MDRD 58; Glucose 120 mg/dL (83-110); Potassium 3.2 mmol/L (3.5-5.1); Sodium 140 mmol/L (136-145)
[2017-11-13 05:28] LABS: Band 7 % (5-11); Eosinophils 2 % (0-10); Hemoglobin 7.9 g/dL (12.0-16.0); Lymphocytes 10 % (21-51); MDiff Complete? YES; Mean Corpuscular HGB CONC 32.2 g/dL (32.0-36.0); Mean Corpuscular Hemoglobin 30.9 pg (27.0-31.0); Mean Corpuscular Volume 96.2 fl (81.0-99.0); Mean Platelet Volume 7.3 fL (7.4-10.4); Monocytes 7 % (0-10); Neutrophil 74 % (42-75); Platelet Count 342 thou/uL (130-400); RBC Distribution Width 15.1 % (11.5-14.5); Red Blood Cell (RBC) Count 2.54 mill/uL (4.20-5.40); White Blood Cell (WBC) Count 11.9 thou/uL (4.8-10.8)
[2017-11-13] MEDS: Amiodarone 200 MG TAB PO SCH (07:59)
[2017-11-13] MEDS: Furosemide 40 MG TAB PO SCH (07:59)
[2017-11-13] MEDS: Carvedilol 3.125 MG TAB PO SCH ×2 (08:00→20:45)
[2017-11-13] MEDS: Spironolactone 25 MG TAB PO SCH (08:00)
[2017-11-13] MEDS: Lisinopril 5 MG TAB PO SCH (08:00)
[2017-11-13] MEDS ORDERED: Potassium Chloride 20 MEQ TAB PO SCH ×2 (09:00)
--- NOTE | 2017-11-13 09:26 | PRG ---
DATE OF SERVICE: 11/13/2017 SERVICE: Pulmonary Medicine INTERVAL HISTORY: The patient is doing fine from a cardiovascular and respiratory standpoint. She d enies any current fevers, chills, nausea, vomiting or chest discomfort. Otherwise, there has been no interval change to her condition. PHYSICAL EXAMINATION: VITAL SIGNS: Afebrile, pulse 106, blood pressure 164/67, respirations 18, saturation 92% on 2 liters nasal cannula. GENERAL: The patient is awake, alert, in no apparent distress. LUNGS: Excellent air entry. There is no prolonged expiratory phase, wheezing, rhonchi, or crackles present. HEART: Normal rate, regular. ABDOMEN: Soft, nontender, nondistended. Bowel sounds are positive. MUSCULOSKELETAL: No cyanosis or clubbing. There is no pitting. GENITOURINARY: No Cummins. NEUROLOGIC: Grossly nonfocal. LABORATORY DATA: WBC 11.9, hemoglobin 7.9, platelets 342,000 and improving. Creatinine 0.92 and rou ghly stable, BUN 33 and continues to trend downward. Potassium 3.2. Basic metabolic profile is othe rwise unremarkable. IMAGING: Echocardiogram demonstrates a 25-30% ejection fraction, dilated left atrium, and severe nirmala ral regurgitation. ASSESSMENT: 1. Acute hypoxic respiratory failure, resolved. 2. Atrial fibrillation with rapid ventricular response. 3. Flash pulmonary edema secondary to hypertensive emergency, resolved. 4. Healthcare-associated pneumonia secondary to overt aspiration. 5. Sepsis without end organ damage. 6. Acute blood loss anemia. DISCUSSION AND PLAN: I will replace the potassium today. Her hemoglobin and potassium will be repea robert tomorrow morning. From my perspective, she is stable for transition the telemetry unit. Pulmona ry Critical Care will continue to follow for the time being.
[2017-11-13] MEDS: Lisinopril 10 MG TAB PO SCH ×2 (09:59→20:46)
[2017-11-13] MEDS: Digoxin 0.125 MG TAB PO SCH (09:59)
[2017-11-13] MEDS: Potassium Chloride 20 MEQ TAB PO SCH ×4 (10:00→14:14)
[2017-11-13] MEDS ORDERED: cloNIDine 0.1 MG TAB PO PRN (18:11)
--- NOTE | 2017-11-13 18:58 | PDOC.PN ---
- Subjective Encounter Start Date: 11/13/17 Encounter Start Time: 18:56 Subjective: nsg notes rev, keith ovn, great granddaughters visiting, no new c/o, no overt -: SOB. was able to sit on EOB with PT. lost PIV access - Objective Resuscitation Status: Resuscitation Status FULL:Full Resuscitation Vital Signs & Weight: Vital Signs (12 hours) Temp Pulse Pulse Pulse Resp BP BP 11/13/17 18:27 189/83 H 11/13/17 16:00 97.8 F 11/13/17 14:00 103 H 24 H 11/13/17 12:00 97.8 F 11/13/17 09:59 90 162/56 H 11/13/17 09:58 105 H 100 168/64 H 11/13/17 08:00 98 F 106 H 18 161/59 H 11/13/17 07:17 106 H 24 H Pulse Ox Pulse Ox Pulse Ox 11/13/17 18:27 11/13/17 16:00 11/13/17 14:00 11/13/17 12:00 11/13/17 09:59 11/13/17 09:58 86 L 90 L 11/13/17 08:00 92 L 11/13/17 07:17 Weight Admit Weight 167 lb 3.2 oz Weight 167 lb 1.766 oz Most Recent Monitor Data Heart Rate from ECG 92 NIBP 187/63 NIBP BP-Mean 113 Respiration from ECG 28 SpO2 95 I&O: 11/12/17 11/13/17 11/14/17 06:59 06:59 06:59 Intake Total 1480 940 350 Output Total 1325 1350 1100 Balance 155 -410 -750 Result Diagrams: 11/13/17 03:54 11/13/17 03:54 Additional Labs: Accuchecks 11/13/17 11/13/17 11/12/17 16:35 11:28 21:09 POC Glucose 128 H 161 H 144 H Phys Exam - Physical Examination Constitutional: NAD lying in hospital bed HEENT: PERRLA, sclera anicteric slightly dry mm pale Respiratory: no wheezing, no rales, no rhonchi, clear to auscultation bilateral diminished throughout, poor air mvmt Cardiovascular: RRR, no significant murmur, no rub Gastrointestinal: soft, non-tender, no distention, positive bowel sounds Neurological: moves all 4 limbs Psychiatric: normal affect, A&O x 3 Dx/Plan - Plan * 82F initially p/w dizziness and weakness felt to be related to anemia. During EGD developed acute hypoxic event and required intubation with ventilatory support * concern for GIB/ blood loss anemia * apprec GI c/s * s/p UGI and colo * s/p 2u prbc during hospitalization * continued hemodynamic stability w/o further loss acute hypoxic respiratory failure 2/2 lash pulmonary event rel to hypertensive urgency with known hx of sev Dax Reg and CAD/ CABG * extubated * apprec PCCM c/s * O2 support as needed and wean as tolerated, start working with PT and OT and ICS * was on piptaz empirically for health care associated aspiration pna but since she has lost PIV access, will trial transition to augmentin 875mg PO BID * repeat CBC in AM hx CAD s/p CABG stable hx sev mitral regurg afib s/p prior ablation * HOLD eliquis 2/2 concern for bleeding above * NSR physical deconditioning - PT diet: (P) speech for diet recs activity: as starr, with PT dvt ppx d/w patient next site of care and patient states she would like to go home if at all possible Review of Systems - Medications/Allergies Allergies/Adverse Reactions: Allergies Allergy/AdvReac Type Severity Reaction Status Date / Time No Known Allergies Allergy Verified 12/01/14 17:16 Medications: Current Medications Albuterol/Ipratropium (Duoneb) 3 ml NEB [id number] [facility] Last Admin: 11/13/17 14:00 Dose: 3 ml Amiodarone HCl (Cordarone) 200 mg PO DAILY [facility] Last Admin: 11/13/17 07:59 Dose: 200 mg Amoxicillin/Clavulanate Potassium (Augmentin) 875 mg PO Q12HR [facility] Carvedilol (Coreg) 3.125 mg PO BID [facility] Last Admin: 11/13/17 08:00 Dose: 3.125 mg Clonidine (Catapres) 0.1 mg PO TIDPRN PRN PRN Reason: PRN SBP >180 Last Admin: 11/13/17 18:27 Dose: 0.1 mg Digoxin (Lanoxin) 0.125 mg PO DAILY [facility] Last Admin: 11/13/17 09:59 Dose: 0.125 mg Ezetimibe (Zetia) 10 mg PO HS [facility] Last Admin: 11/12/17 21:09 Dose: 10 mg Furosemide (Lasix) 40 mg PO DAILY-AC [facility] Last Admin: 11/13/17 07:59 Dose: 40 mg Hydralazine HCl (Apresoline) 10 mg SLOW IVP Q2H PRN PRN Reason: SBP GREATER THAN 160 Last Admin: 11/05/17 19:43 Dose: 10 mg Piperacillin Sod/Tazobactam (Sod 3.375 gm/ Sodium Chloride) 100 mls @ 200 mls/ hr IVPB 0400,1000,1600,2200 [facility] Last Admin: 11/13/17 16:36 Dose: 100 mls Lisinopril (Zestril) 10 mg PO BID [facility] Last Admin: 11/13/17 09:59 Dose: 10 mg Mineral Oil/White Petrolatum (Lacri-Lube Ointment) 0 gm EA EYE PRN PRN PRN Reason: Dry Eyes Pantoprazole Sodium (Protonix) 40 mg PO 2100 [facility] Last Admin: 11/12/17 21:10 Dose: 40 mg Sertraline HCl (Zoloft) 25 mg PO DAILY [facility] Last Admin: 11/13/17 07:59 Dose: 25 mg Simvastatin (Zocor) 40 mg PO HS [facility] Last Admin: 11/12/17 21:10 Dose: 40 mg Sodium Chloride (Flush - Normal Saline) 10 ml IVF PRN PRN PRN Reason: Saline Flush Last Admin: 11/11/17 21:03 Dose: 10 ml Sodium Chloride (Flush - Normal Saline) 10 ml IVF PRN PRN PRN Reason: Saline Flush Spironolactone (Aldactone) 25 mg PO QAM-WM [facility] Last Admin: 11/13/17 08:00 Dose: 25 mg
[2017-11-13] MEDS: Amoxicillin/Potassium Clav 875 MG TAB PO SCH (20:45)
[2017-11-13] MEDS: Simvastatin 40 MG TAB PO SCH (20:46)
[2017-11-13] MEDS: Ezetimibe 10 MG TAB PO SCH (20:46)
[2017-11-14 05:40] LABS: #Eosinphils 0.2 thou/uL (0.0-0.7); #Monocytes 0.4 thou/uL (0.11-0.59); #Neutrophils 8.8 thou/uL (1.40-6.50); %Basophils 0.2 % (0.0-1.0); %Eosinophils 1.7 % (0.0-10.0); %Lymphocytes 9.6 % (21.0-51.0); %Monocytes 4.1 % (0.0-10.0); %Neutrophils 84.3 % (42.0-75.0); Mean Corpuscular HGB CONC 31.5 g/dL (32.0-36.0); Mean Corpuscular Hemoglobin 30.3 pg (27.0-31.0); Mean Corpuscular Volume 96.2 fl (81.0-99.0); Platelet Count 360 thou/uL (130-400); Red Blood Cell (RBC) Count 2.65 mill/uL (4.20-5.40); White Blood Cell (WBC) Count 10.4 thou/uL (4.8-10.8)
[2017-11-14 05:41] LABS: Anion Gap 9 mmol/L (10-20); BUN (Urea Nitrogen) 23 mg/dL (9.8-20.1); Calc. Creatinine Clearance 61 mL/min (70-130); Calcium 8.8 mg/dL (7.8-10.44); Carbon Dioxide 31 mmol/L (23-31); Chloride 105 mmol/L (98-107); Estimated GFR-MDRD 66; Glucose 141 mg/dL (83-110); Magnesium 1.9 mg/dL (1.6-2.6); Sodium 141 mmol/L (136-145)
[2017-11-14 05:43] LABS: Digoxin 1.45 ng/mL (0.8-2.0)
[2017-11-14] MEDS: Spironolactone 25 MG TAB PO SCH (08:11)
[2017-11-14] MEDS: Digoxin 0.125 MG TAB PO SCH (08:11)
[2017-11-14] MEDS: Amoxicillin/Potassium Clav 875 MG TAB PO SCH ×2 (08:11→20:47)
[2017-11-14] MEDS: Furosemide 40 MG TAB PO SCH (08:11)
[2017-11-14] MEDS: Amiodarone 200 MG TAB PO SCH (08:11)
[2017-11-14] MEDS: Carvedilol 3.125 MG TAB PO SCH (08:12)
[2017-11-14] MEDS: Lisinopril 10 MG TAB PO SCH ×2 (08:12→20:47)
[2017-11-14] MEDS ORDERED: Carvedilol 3.125 MG TAB PO SCH (09:00)
--- NOTE | 2017-11-14 09:50 | PRG ---
DATE OF SERVICE: 11/14/2017 SERVICE: Pulmonary Medicine INTERVAL HISTORY: The patient is doing fine from a cardiovascular and respiratory standpoint. She d enies any shortness of breath or chest pain. Her strength is improving. She had not been out of bed yet today. PHYSICAL EXAMINATION: VITAL SIGNS: Afebrile, pulse 93, blood pressure 139/62, respirations 23, saturation 94% on 2 liters nasal cannula. GENERAL: The patient is awake, alert, in no apparent distress. LUNGS: Decent air entry. There are dependent crackles present. HEART: Normal rate, regular. ABDOMEN: Soft, nontender, nondistended. Bowel sounds are positive. MUSCULOSKELETAL: No cyanosis or clubbing. There is no pitting in the bilateral lower extremities. NEUROLOGIC: Grossly nonfocal. LABORATORY: WBC 10.4, hemoglobin 8.0, platelets 360,000. Creatinine 0.82, bicarbonate 31. Basic me tabolic profile and magnesium are otherwise unremarkable. Digoxin level 1.45. ASSESSMENT: 1. Acute hypoxic respiratory failure, stable. 2. Atrial fibrillation with rapid ventricular response. 3. Flash pulmonary edema secondary to hypertensive emergency, resolved. 4. Healthcare-associated pneumonia secondary to overt aspiration. 5. Sepsis without end organ damage. 6. Acute blood loss anemia, stable. DISCUSSION AND PLAN: We will give the patient a laboratory holiday. Pulmonary Critical Care will co kishorue to follow while she remains in this location. From my perspective, she is stable for transiti on to the telemetry unit.
[2017-11-14] MEDS ORDERED: Dextrose 50% Abboject 50 ML SYRINGE SLOW IVP PRN (13:25)
[2017-11-14] MEDS ORDERED: HumaLOG 300 UNITS/3 ML VIAL SC PRN (13:25)
[2017-11-14] MEDS ORDERED: Dextrose 5% in Water 1,000 ML IV PRN (13:25)
[2017-11-14] MEDS ORDERED: Magnesium Oxide 400 MG TAB PO SCH (13:25)
[2017-11-14 14:17] VITALS: BMI 25.6
[2017-11-14] MEDS: Carvedilol 6.25 MG TAB PO SCH (16:54)
[2017-11-14] MEDS: Ezetimibe 10 MG TAB PO SCH (20:47)
[2017-11-14] MEDS: Simvastatin 40 MG TAB PO SCH (20:47)
--- NOTE | 2017-11-14 23:37 | PDOC.PN ---
- Subjective Encounter Start Date: 11/14/17 Encounter Start Time: 10:36 Subjective: nsg notes rev, keith ovn, no new c/o, has only sat on EOB with assist - Objective Resuscitation Status: Resuscitation Status FULL:Full Resuscitation Vital Signs & Weight: Vital Signs (12 hours) Temp Pulse Pulse Pulse Resp BP BP 11/14/17 20:47 139/62 11/14/17 20:00 98.7 F 11/14/17 19:47 98.7 F 88 24 H 11/14/17 19:34 11/14/17 16:54 139/62 11/14/17 16:00 98.7 F 11/14/17 14:09 93 91 162/46 H 11/14/17 13:24 89 22 H 11/14/17 12:00 98.3 F BP Pulse Ox Pulse Ox Pulse Ox 11/14/17 20:47 11/14/17 20:00 11/14/17 19:47 92 L 11/14/17 19:34 95 11/14/17 16:54 11/14/17 16:00 11/14/17 14:09 149/46 H 85 L 83 L 11/14/17 13:24 96 11/14/17 12:00 Weight Admit Weight 167 lb 3.2 oz Weight 149 lb 7.568 oz Most Recent Monitor Data Heart Rate from ECG 93 NIBP 135/50 NIBP BP-Mean 81 Respiration from ECG 32 SpO2 92 I&O: 11/13/17 11/14/17 11/15/17 06:59 06:59 06:59 Intake Total 940 350 500 Output Total 1350 1100 450 Balance -410 -750 50 Result Diagrams: 11/14/17 05:12 11/14/17 05:12 Additional Labs: Accuchecks 11/14/17 11/14/17 11/14/17 20:52 16:54 11:46 POC Glucose 141 H 129 H 188 H Phys Exam - Physical Examination Constitutional: NAD HEENT: PERRLA, moist MMs, sclera anicteric Respiratory: no wheezing, no rales, no rhonchi, clear to auscultation bilateral diminished anterior exam Cardiovascular: RRR, no significant murmur, no rub Gastrointestinal: soft, positive bowel sounds Neurological: moves all 4 limbs Dx/Plan - Plan * * 82F initially p/w dizziness and weakness felt to be related to anemia. During EGD developed acute hypoxic event and required intubation with ventilatory support * concern for GIB/ blood loss anemia * apprec GI c/s * s/p UGI and colo * s/p 2u prbc during hospitalization * continued hemodynamic stability w/o further loss acute hypoxic respiratory failure 2/2 lash pulmonary event rel to hypertensive urgency with known hx of sev Dax Reg and CAD/ CABG * extubated, supplemental O2 has been downtitrated * apprec PCCM c/s * health care associated aspiration pna was intiially on empiric pip brandon, now augmentin 875mg PO BID hx CAD s/p CABG stable hx sev mitral regurg afib s/p prior ablation * HOLD eliquis 2/2 concern for bleeding above * NSR physical deconditioning - PT diet: (P) speech for diet recs activity: as starr, with PT dvt ppx pt is very weak, t/c residential SNF 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 about 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 particularly if she continues to demonstrate poor progression with PT - would recommend outpatient palliative care Review of Systems - Medications/Allergies Allergies/Adverse Reactions: Allergies Allergy/AdvReac Type Severity Reaction Status Date / Time No Known Allergies Allergy Verified 12/01/14 17:16 Medications: Current Medications Albuterol/Ipratropium (Duoneb) 3 ml NEB [id number] Last Admin: 11/15/17 08:15 Dose: 3 ml Amiodarone HCl (Cordarone) 200 mg PO DAILY [facility] Last Admin: 11/15/17 08:35 Dose: 200 mg Amoxicillin/Clavulanate Potassium (Augmentin) 875 mg PO Q12HR [facility] Last Admin: 11/15/17 08:35 Dose: 875 mg Carvedilol (Coreg) 6.25 mg PO BID-WM [facility] Last Admin: 11/15/17 08:34 Dose: 6.25 mg Clonidine (Catapres) 0.1 mg PO TIDPRN PRN PRN Reason: PRN SBP >180 Last Admin: 11/13/17 18:27 Dose: 0.1 mg Dextrose/Water (Dextrose 50%) 25 gm SLOW IVP PRN PRN PRN Reason: Hypoglycemia Digoxin (Lanoxin) 0.125 mg PO DAILY [facility] Last Admin: 11/15/17 08:36 Dose: 0.125 mg Ezetimibe (Zetia) 10 mg PO HS [facility] Last Admin: 11/14/17 20:47 Dose: 10 mg Fluconazole (Diflucan) 100 mg PO DAILY [facility] Stop: 11/24/17 09:01 Fluconazole (Diflucan) 100 mg PO NOW [facility] Stop: 11/15/17 13:00 Furosemide (Lasix) 40 mg PO DAILY-AC [facility] Last Admin: 11/15/17 08:34 Dose: 40 mg Glucagon (Glucagon) 1 mg IM PRN PRN PRN Reason: Hypoglycemia Hydralazine HCl (Apresoline) 10 mg SLOW IVP Q2H PRN PRN Reason: SBP GREATER THAN 160 Last Admin: 11/05/17 19:43 Dose: 10 mg Dextrose/Water (D5w) 1,000 mls @ 0 mls/hr IV .Q0M PRN; As Directed PRN Reason: Hypoglycemia Insulin Human Lispro (Humalog) 0 units SC .MILD SLIDING SCALE PRN PRN Reason: Mild Correctional Scale Lisinopril (Zestril) 10 mg PO BID [facility] Last Admin: 11/15/17 08:36 Dose: 10 mg Mineral Oil/White Petrolatum (Lacri-Lube Ointment) 0 gm EA EYE PRN PRN PRN Reason: Dry Eyes Pantoprazole Sodium (Protonix) 40 mg PO 2100 [facility] Last Admin: 11/14/17 20:47 Dose: 40 mg Sertraline HCl (Zoloft) 25 mg PO DAILY [facility] Last Admin: 11/15/17 08:36 Dose: 25 mg Simvastatin (Zocor) 40 mg PO HS [facility] Last Admin: 11/14/17 20:47 Dose: 40 mg Sodium Chloride (Flush - Normal Saline) 10 ml IVF PRN PRN PRN Reason: Saline Flush Last Admin: 11/11/17 21:03 Dose: 10 ml Sodium Chloride (Flush - Normal Saline) 10 ml IVF PRN PRN PRN Reason: Saline Flush Spironolactone (Aldactone) 25 mg PO [facility] Last Admin: 11/15/17 08:35 Dose: 25 mg
[2017-11-15] MEDS: Furosemide 40 MG TAB PO SCH (08:34)
[2017-11-15] MEDS: Carvedilol 6.25 MG TAB PO SCH ×2 (08:34→17:24)
[2017-11-15] MEDS: Spironolactone 25 MG TAB PO SCH (08:35)
[2017-11-15] MEDS: Amiodarone 200 MG TAB PO SCH (08:35)
[2017-11-15] MEDS: Amoxicillin/Potassium Clav 875 MG TAB PO SCH ×2 (08:35→21:38)
[2017-11-15] MEDS: Lisinopril 10 MG TAB PO SCH ×2 (08:36→21:37)
[2017-11-15] MEDS: Digoxin 0.125 MG TAB PO SCH (08:36)
[2017-11-15] MEDS ORDERED: Fluconazole 100 MG TAB PO SCH (10:15)
--- NOTE | 2017-11-15 10:18 | PRG ---
DATE OF SERVICE: 11/15/2017 SERVICE: Pulmonary Medicine INTERVAL HISTORY: The patient is doing fantastic from a cardiovascular and respiratory standpoint. She denies any current chest pain, shortness of breath. Her biggest complaint is mouth soreness and throat soreness. I looked in her mouth. She has a white plaque all over her tongue that easily scra pes off. PHYSICAL EXAMINATION: VITAL SIGNS: Afebrile, pulse 90, blood pressure 154/63, respirations 20, saturation 92% on 3 liters nasal cannula. GENERAL: The patient is awake, alert, in no apparent distress. LUNGS: Excellent air entry. Dependent crackles are minimal. HEART: Normal rate, regular. ABDOMEN: Soft, nontender, nondistended. Bowel sounds are positive. MUSCULOSKELETAL: No cyanosis or clubbing. There is no pitting in the bilateral lower extremities. NEUROLOGIC: Grossly nonfocal. LABORATORY: WBC 10.4, hemoglobin 8.0, platelets 360,000. Creatinine 0.82. Basic metabolic profile is otherwise unremarkable. Magnesium 1.9. ASSESSMENT: 1. Acute hypoxic respiratory failure, stable. 2. Atrial fibrillation with rapid ventricular response. 3. Flash pulmonary edema secondary to hypertensive emergency, resolved. 4. Healthcare-associated pneumonia secondary to overt aspiration. 5. Sepsis without end organ damage. 6. Thrush. 7. Acute blood loss anemia, stable. DISCUSSION AND PLAN: I will start her on some fluconazole. Otherwise, supportive care will be navneet nued. The patient is stable for transition out of the hospital from my perspective or she can go to telemetry or be discharged. Pulmonary will continue to follow as long as she remains in the hospital for the time being. I will initiate her on a 10-day course of fluconazole.
[2017-11-15] MEDS: Ezetimibe 10 MG TAB PO SCH (21:38)
[2017-11-15] MEDS: Simvastatin 40 MG TAB PO SCH (21:38)
[2017-11-16 07:50] VITALS: TEMP 98.5
[2017-11-16] MEDS: Amoxicillin/Potassium Clav 875 MG TAB PO SCH (07:59)
[2017-11-16] MEDS: Spironolactone 25 MG TAB PO SCH (08:00)
[2017-11-16] MEDS: Furosemide 40 MG TAB PO SCH (08:00)
[2017-11-16] MEDS: Amiodarone 200 MG TAB PO SCH (08:01)
[2017-11-16] MEDS: Digoxin 0.125 MG TAB PO SCH (08:01)
[2017-11-16] MEDS: Carvedilol 6.25 MG TAB PO SCH (08:01)
[2017-11-16] MEDS: Lisinopril 10 MG TAB PO SCH (08:02)
[2017-11-16] MEDS ORDERED: Fluconazole 100 MG TAB PO SCH (09:00)
--- NOTE | 2017-11-16 09:43 | PRG ---
DATE OF SERVICE: 11/16/2017 SERVICE: Pulmonary Medicine. INTERVAL HISTORY: The patient is doing fine from a cardiovascular and respiratory standpoint. She d enies any current chest pain, nausea, vomiting, shortness of breath, fevers or chills. She has adrian beavers returned to her usual state of health. She is waiting on placement at a nursing home [facility] it or for a bed to open up on telemetry. There were no events overnight. PHYSICAL EXAMINATION: VITAL SIGNS: Afebrile, pulse 95, blood pressure 162/49, respirations 26, saturation 91% on 2 liters nasal cannula. GENERAL: The patient is awake and alert, no apparent distress. LUNGS: Decent air entry. Crackles are present. There is no prolonged expiratory phase. No wheezin g or rhonchi are appreciated. HEART: Normal rate, regular. ABDOMEN: Soft, nontender, nondistended. Bowel sounds are positive. MUSCULOSKELETAL: No cyanosis or clubbing. There is no pitting in the bilateral lower extremities. NEUROLOGIC: Grossly nonfocal. ASSESSMENT: 1. Acute hypoxic respiratory failure. 2. Flash pulmonary edema secondary to hypertensive emergency, resolved. 3. Atrial fibrillation with rapid ventricular response. 4. Acute on chronic systolic and valvular heart failure, resolved, near baseline. 5. Healthcare-associated pneumonia, status post full course of antibiotic. 6. Sepsis without end organ damage. 7. Thrush. 8. Acute blood loss anemia, stable. DISCUSSION AND PLAN: I will repeat a hemoglobin, and electrolytes tomorrow including magnesium. I w ill give her an afternoon dose of Lasix today. She is once again putting a little extra volume on, a nd her blood pressures are creeping up. Pulmonary and Critical Care will continue to follow while nirali baldwin remains in this location, but from my perspective, she remains stable for transition out of the [facility].
[2017-11-16 12:03] VITALS: BP 154/69
[2017-11-16] MEDS ORDERED: Furosemide 40 MG/4 ML VIAL SLOW IVP SCH (14:00)
--- NOTE | 2017-11-17 21:34 | EKG ---
Test Reason : Blood Pressure : / mmHG Vent. Rate : 087 BPM Atrial Rate : 087 BPM P-R Int : 238 ms QRS Dur : 126 ms QT Int : 424 ms P-R-T Axes : 066 -11 -73 degrees QTc Int : 510 ms Sinus rhythm with 1st degree A-V block with frequent , and consecutive Premature ventricular complexe s Left ventricular hypertrophy with QRS widening T wave abnormality, consider inferolateral ischemia Abnormal ECG Confirmed by MALCOLM BRYAN M.D. ([id number]), metropolitan editor MARISSA PHIPPS ([id number]) on 11/17/2017 9:34:35 PM Referred By: Confirmed By:MALCOLM BRYAN M.D.
--- NOTE | 2017-11-20 08:17 | DIS ---
DISCHARGE DIAGNOSES: 1. Anemia, resolved. 2. Acute hypoxic respiratory failure secondary to flash pulmonary event. 3. Flash pulmonary edema secondary to hypertensive urgency. 4. Severe mitral regurgitation. 5. History of coronary artery disease and coronary artery bypass grafting. 6. Atrial fibrillation, status post prior ablation. 7. Severe physical deconditioning. 8. Concern for failure to thrive. BRIEF SUMMARY OF HOSPITAL COURSE: An 82-year-old female who initially presented with a chief complaint of weakness and dizziness. Please see the original history and physical for full details surrounding admission. Initially, the patient's dizziness and weakness was felt to be perhaps related to anemia. Patient has been chronically on anticoagulation with Eliquis for her atrial fibrillation, this is felt to be contributory etiology to potential anemia. The patient was seen by Gastroenterology and underwent an EGD and colonoscopy. She also received 2 units of packed red blood cells during this hospitalization prior to endoscopies. During the EGD, the patient developed an acute hypoxic event required intubation with ventilatory support. Patient was moved to intensive care unit and Pulmonary and Critical Care was consulted as well. The patient was noted to have healthcare associated aspiration pneumonia and was empirically placed on piperacillin and tazobactam. At the time of discharge, this antibiotic has been deescalated to Augmentin 875 mg p.o. b.i.d. Patient was maintained on ventilatory support with slow weaning and was successfully extubated with supplemental O2 down titrated. Retrospectively, it is felt that secondary to hypertensive urgency event, patient developed flash pulmonary edema with a degree of hemodynamic predisposition due to known coronary artery disease and severe mitral regurgitation. Post-extubation with subsequent hemodynamic stabilization, the patient has been seen by Physical Therapy and Occupational Therapy. The patient unfortunately appears to be demonstrating component of failure to thrive as she has very little interest in participating with physical therapy; however, she is able to be encouraged to do so. The remainder of the patient's chronic medical issues including her coronary artery disease and atrial fibrillation has remained stable during this hospitalization. I am concerned about the patient's long-term prognosis, particularly if she continues to demonstrate poor progression with physical therapy. As the patient continues to have failure to thrive, would consider a consultation with palliative care on an outpatient basis. CONSULTATIONS: 1. Gastroenterology. 2. Pulmonary or Critical Care. HOME MEDICATIONS: Please see the EMR for full details. PATIENT'S CONDITION AT DISCHARGE: At time of discharge, the patient is hemodynamically stable and physically capable of participating with physical therapy. DISCHARGE INSTRUCTIONS: The patient is currently being discharged to rehabilitative facility. She is asked to follow up carefully with her outpatient team including her primary care provider, glass beveller and marketing proposal coordinator. Thank you for asking me to care for the patient. Greater than 30 minutes was spent coordinating discharge for the patient. Questions or concerns, contact me at [facility]. NORMAN
--- NOTE | 2017-11-21 22:34 | EKG ---
Test Reason : URGENT Blood Pressure : / mmHG Vent. Rate : 097 BPM Atrial Rate : 097 BPM P-R Int : 226 ms QRS Dur : 164 ms QT Int : 360 ms P-R-T Axes : 101 -18 167 degrees QTc Int : 457 ms Sinus rhythm with 1st degree A-V block with occasional Premature ventricular complexes with ventricul ar escape complexes Left bundle branch block Abnormal ECG When compared with ECG of 03-NOV-2017 20:10, (Unconfirmed) Sinus rhythm is now with ventricular escape complexes Left bundle branch block is now Present Confirmed by Arias PEÑA ([id number]) on 11/21/2017 10:33:58 PM Referred By: MORGAN Confirmed By:Arias PEÑA
--- NOTE | 2017-11-29 07:41 | PQF ---
CECILLE SAVAGE YESENIA SINGH [id number] CLINICAL DOCUMENTATION CLARIFICATION FORM: POST DISCHARGE A DATE: 11/29/2017 ATTN: Chang Please exercise your independent, professional judgment in responding to the clarification form. Clinical indicators are provided on the bottom of this form for your review Please check appropriate box(s) to clarify if the following diagnosis has been ruled in or ruled out: Gastrointestinal Bleed ___ [ ] Ruled in diagnosis--Gastrointestinal bleed due to (please specify cause) [ ] Continue to treat [ ] Resolved [ ] Ruled out diagnosis--dark stools due to (please specify) [ x ] Cannot rule out diagnosis - may have sustained a slow chronic GI tract loss of blood that has resolved at time of endoscopy [ ] Other diagnosis (please specify) [ ] Unable to determine In addition, please specify: Present on Admission (POA): [ x ] Yes [ ] No [ ] Unable to determine For continuity of documentation, please document condition throughout progress notes and discharge summary. Thank You. CLINICAL INDICATORS - SIGNS / SYMPTOMS / LABS (per H&P) Dizziness and weakness. Dark stools for the past week. Anemia. Per 11/05 progress note--There is a possibility the patient had an upper airway issue in the nose or the posterior oropharynx that was causing the patient to swallow blood and generate signs that look similar to an upper GI bleed. RISK FACTORS Patient on Eliquis. TREATMENTS Colonoscopy/EGD--Both normal. Transfusion. (This form is maintained as a part of the permanent medical record) 2014 [employer]. All Rights Reserved Marjorie [email or web address] [phone] [place]
== END 2017-11-16 14:30 | DRG 377 ==
LOC: ERS 20:03 → IMCU/EMU 22:45 → CCU 11-05 15:15
PROVIDERS: ADMIT Internal Medicine; ATTEND Internal Medicine
PROC: 30233N1 Transfusion of Nonautologous Red Blood Cells into Peripheral Vein, Percutaneous Approach (ICD-10-PCS; 2017-11-03)
PROC: 0DJ08ZZ Inspection of Upper Intestinal Tract, Via Natural or Artificial Opening Endoscopic (ICD-10-PCS; 2017-11-05)
PROC: 0BH17EZ Insertion of Endotracheal Airway into Trachea, Via Natural or Artificial Opening (ICD-10-PCS; 2017-11-05)
PROC: 5A1945Z Respiratory Ventilation, 24-96 Consecutive Hours (ICD-10-PCS; 2017-11-05)
PROC: 0DJD8ZZ Inspection of Lower Intestinal Tract, Via Natural or Artificial Opening Endoscopic (ICD-10-PCS; principal; 2017-11-07)
PROC: 04HY32Z Insertion of Monitoring Device into Lower Artery, Percutaneous Approach (ICD-10-PCS; 2017-11-07)
PROC: 04HK33Z Insertion of Infusion Device into Right Femoral Artery, Percutaneous Approach (ICD-10-PCS; 2017-11-07)
DX: K92.2 Gastrointestinal hemorrhage, unspecified (principal); J96.01 Acute respiratory failure with hypoxia; J69.0 Pneumonitis due to inhalation of food and vomit; A41.9 Sepsis, unspecified organism; I50.23 Acute on chronic systolic (congestive) heart failure; B37.0 Candidal stomatitis; E11.22 Type 2 diabetes mellitus with diabetic chronic kidney disease; D62 Acute posthemorrhagic anemia; I13.0 Hypertensive heart and chronic kidney disease with heart failure and stage 1 through stage 4 chronic kidney disease, or unspecified chronic kidney disease; I25.5 Ischemic cardiomyopathy; I48.91 Unspecified atrial fibrillation; N18.9 Chronic kidney disease, unspecified; K64.4 Residual hemorrhoidal skin tags; K57.30 Diverticulosis of large intestine without perforation or abscess without bleeding; K64.8 Other hemorrhoids; I16.0 Hypertensive urgency; I34.0 Nonrheumatic mitral (valve) insufficiency; I25.10 Atherosclerotic heart disease of native coronary artery without angina pectoris; K21.9 Gastro-esophageal reflux disease without esophagitis; I25.2 Old myocardial infarction; Z87.11 Personal history of peptic ulcer disease; Z79.01 Long term (current) use of anticoagulants; Z79.82 Long term (current) use of aspirin; Z79.899 Other long term (current) drug therapy; Z95.1 Presence of aortocoronary bypass graft; Z95.5 Presence of coronary angioplasty implant and graft; R62.7 Adult failure to thrive
CPT/HCPCS: 36415; 36416; 36430; 71045; 80048; 80053; 80162; 82274; 82550; 82553; 82805; 83690; 83735; 83880; 84100; 84484; 85007; 85014; 85018; 85025; 85027; 86850; 86900; 86901; 87070; 87205; 93005; 93010; 93306; 94002; 94003; 94640; 96365; 96366; C9113; G8978-GP-CN; G8979-GP-CK; J0360; J1160; J1940; J2060; J2250; J2270; J2543; J2704; J3010; J3475; J7050; J7620; P9016

== ENCOUNTER 2017-11-18 15:22 | Inpatient (IN) | payer MEDICARE ==
--- NOTE | 2017-11-18 16:00 | RAD ---
CHEST 1 VIEW: Date: 11/18/17 HISTORY: Dyspnea. COMPARISON: 11/06/17. FINDINGS: Cardiac silhouette is magnified, enlarged, and more obscured by patchy infiltrate throughout each clint g. Mediastinum is midline. Pulmonary vasculature is more engorged. There is calcification in the aort a. No evidence of pneumothorax. IMPRESSION: 1. Pulmonary edema is more pronounced. Bilateral pleural fluid and cardiomegaly. 2. Atherosclerosis. POS: LEONID
[2017-11-18 16:22] LABS: Actual Bicarbonate (HCO3a) 26.4 mEq/L (22-26); Base Excess (BEa) 1.7 mEq/L (0 (+/-) 2.5); Carboxyhemoglobin (COHb) 2.2 gm% (0.0-3.0); Hematocrit-ABG 29.9 % (36.0-47.0); Hemoglobin (Hb) 8.8 g/dL (12.0-16.0); O2 Tension (PaO2) 98.1 mmHg (80.0-100.0); pH, Arterial 7.42 (7.35-7.45)
[2017-11-18 16:23] LABS: Calcium, Ionized 1.2 mmol/L (1.12-1.30); Potassium - ABG Lab 3.8 mmol/L (3.70-5.30)
[2017-11-18 16:24] LABS: Analyzer IN Cardio ER; Puncture Site L.B.
[2017-11-18 16:29] LABS: #Eosinphils 0.1 thou/uL (0.0-0.7); #Lymphocytes 0.8 thou/uL (1.20-3.40); #Monocytes 0.6 thou/uL (0.11-0.59); #Neutrophils 8.6 thou/uL (1.40-6.50); %Basophils 0.1 % (0.0-1.0); %Eosinophils 0.8 % (0.0-10.0); %Lymphocytes 8.1 % (21.0-51.0); %Monocytes 5.8 % (0.0-10.0); %Neutrophils 85.2 % (42.0-75.0); Hemoglobin 9.8 g/dL (12.0-16.0); Mean Corpuscular HGB CONC 31.9 g/dL (32.0-36.0); Mean Corpuscular Hemoglobin 30.1 pg (27.0-31.0); Mean Corpuscular Volume 94.6 fl (81.0-99.0); Mean Platelet Volume 6.6 fL (7.4-10.4); Platelet Count 455 thou/uL (130-400); RBC Distribution Width 15.2 % (11.5-14.5); Red Blood Cell (RBC) Count 3.24 mill/uL (4.20-5.40); White Blood Cell (WBC) Count 10.1 thou/uL (4.8-10.8)
[2017-11-18 16:35] LABS: INR-International Normal Ratio 1.2; PTT 24.6 SEC (22.9-36.1); Prothrombin Time 14.9 SEC (12.0-14.7)
[2017-11-18 16:53] LABS: ALT (SGPT) 34 U/L (8-55); AST (SGOT) 44 U/L (5-34); Albumin 3.3 g/dL (3.4-4.8); Alkaline Phosphatase 75 U/L (40-150); Anion Gap 18 mmol/L (10-20); BUN (Urea Nitrogen) 14 mg/dL (9.8-20.1); Bilirubin, Total 1.1 mg/dL (0.2-1.2); CK (CPK) 15 U/L (29-168); Calc. Creatinine Clearance 0 mL/min (70-130); Calcium 9.2 mg/dL (7.8-10.44); Carbon Dioxide 26 mmol/L (23-31); Chloride 98 mmol/L (98-107); Estimated GFR-MDRD 48; Glucose 199 mg/dL (83-110); Lipase 33 U/L (8-78); Protein, Total 7.3 g/dL (6.0-8.3); Sodium 138 mmol/L (136-145)
[2017-11-18 17:05] LABS: Bilirubin Negative (Negative); Blood, Urine Negative (Negative); Clarity CLEAR (Clear); Glucose, Urine (Dipstick) Negative (Negative); Leukocyte Negative (Negative); Nitrite Negative (Negative); Protein, Urine (Dipstick) Negative (Neg-Trace); Urobilinogen 0.2 mg/dL (0.2-1.0)
[2017-11-18 17:09] LABS: CKMB 0.8 ng/mL (0-6.6); Troponin I 0.034 ng/mL (< 0.028)
[2017-11-18] MEDS ORDERED: Furosemide 40 MG/4 ML VIAL ONE (17:11)
[2017-11-18] MEDS ORDERED: Nitroglycerin 2% Ointment 1 INCH/1 GM Packet ONE ×2 (17:11→17:13)
[2017-11-18] MEDS ORDERED: Furosemide 40 MG/4 ML VIAL SLOW IVP SCH ×2 (19:15→22:00)
[2017-11-18] MEDS ORDERED: HYDROcodone/Acetaminophen 5/325 mg Tablet PO PRN (19:15)
[2017-11-18] MEDS ORDERED: Ondansetron ODT 4 MG TAB PO PRN (19:15)
[2017-11-18] MEDS ORDERED: HYDROcodone/Acetaminophen 7.5/325 mg Tablet PO PRN (19:15)
--- NOTE | 2017-11-18 20:13 | HP ---
DATE OF ADMISSION: 11/18/2017 CHIEF COMPLAINT: Shortness of breath. HISTORY OF PRESENT ILLNESS: This is an 82-year-old white female with a known history of congestive h eart failure, history of atrial fibrillation, uncontrolled hypertension. The patient was in her [facility] and was recently discharge from hospital a week ago to a rehab or shelter [facility] following a CHF exacerbation. The patient was in her usual state of health until yesterday s he happened had an episode of chest pain, which lasted for 30 minutes and after which she did not bot her about it and this afternoon when she went to her restroom and when she returned, she had a sudden onset of shortness of breath and she called out for the nurse and her oxygen saturations were very l ow at 70%. The patient was initially given nebulizer treatment and was immediately brought to the ER for further evaluation. When the patient arrived in the ER, she was very hypoxic around 70s-80s and she was started on BiPAP and the chest x-ray was done showing an evidence of a marked pulmonary francisco a and also had elevated blood pressures in the 160s. The patient was given sublingual nitro, which d id bring down the blood pressures a little bit. The patient continues to be on the BiPAP. Her ABG w as done, which did not show any evidence of hypoxia, surprisingly, but had a very large A-a gradient. The patient was on Eliquis until 2 weeks ago when she had an ablation procedure for atrial fibrilla tion following which she has not been on Eliquis since then. The patient is seen in the ER, she was alert and oriented, on BiPAP, discussed with the family. She denied having any chest pain at this time. No nausea, no vomiting, no diarrhea, no constipation. Sh e denied having any burning in passing urine. She denied having any abdominal pain. She denied havi ng any cough or fever or any exposure to sick people. PAST MEDICAL HISTORY: 1. Chronic anemia. 2. History of chronic gastric ulcer disease. 3. Hypertension. 4. Coronary artery disease status post stents more than 10 years ago. 5. Type 2 diabetes mellitus. 6. GERD. 7. Chronic renal insufficiency. PAST SURGICAL HISTORY: 1. . 2. Appendectomy. 3. Hernia repair. 4. Cholecystectomy. 5. History of stent placement. 6. Cataract surgery. 7. History of ablation procedure. ALLERGIES: No known drug allergies. FAMILY HISTORY: Father of OR at old age. Mother had stomach cancer and sister of ovarian cancer. SOCIAL HISTORY: The patient lives with her granddaughter, but currently she is at a senior living fol lowing a recent hospitalization. She denies smoking and no alcohol. No history of illicit drug use. REVIEW OF SYSTEMS: All 12 systems are reviewed with the patient thoroughly and found to be negative at this time except the ones described in HPI. The following complete review of systems was negative , unless otherwise mentioned in the HPI or below: Constitutional: Weight loss or gain, sense of wel l-being, ability to conduct usual activities, exercise tolerance. Skin/Breast: Rash, itching, lam es in hair growth or loss, nail changes, breast lumps, tenderness, swelling, nipple discharge. Eyes: Vision, double vision, tearing, blind spots, pain. ENT/Mouth: Headaches (location, time of onset, duration, precipitating factors), vertigo, lightheadedness, injury. Vision, double vision, tearing, blind spots, pain, nose bleeding, colds, obstruction, discharge, dental difficulties, gingival bleedi ng, dentures, neck stiffness, pain, tenderness, masses in thyroid or other areas. Cardiovascular: P recordial pain, substernal distress, palpitations, syncope, dyspnea on exertion, orthopnea, nocturnal paroxysmal dyspnea, edema, cyanosis, hypertension, heart murmurs, varicosities, phlebitis, claudicat ion. Respiratory: Pain, shortness of breath, wheezing, stridor, cough, hemoptysis, fever or night s weats. Gastrointestinal: Poor appetite, dysphagia, indigestion, abdominal pain, heartburn, eructati on, nausea, vomiting, hematemesis, jaundice, constipation, or diarrhea, abnormal stools (heather-colored , tarry, bloody, greasy, foul smelling), flatulence, hemorrhoids, recent changes in bowel habits. Ge nitourinary: Urgency, frequency, dysuria, nocturia, hematuria, polyuria, oliguria, unusual (or lam e in) color of urine, stones, hesitancy, change in size of stream, dribbling, acute retention or inco ntinence, libido, potency. Musculoskeletal: Pain, swelling, redness or heat of muscles or joints, l imitation, of motion, muscular weakness, atrophy, cramps. Neurologic/Psychiatric: Convulsions, para lyses, tremor, incoordination, paresthesias, difficulties with memory of speech, sensory or motor dis turbances, or muscular coordination (ataxia, tremor), emotional problems, anxiety, depression, previo us psychiatric care, unusual perceptions, hallucinations. Allergy/Immunologic: Skin rash, anemia, b leeding tendency, polydipsia, polyuria, intolerance to heat or cold. HOME MEDICATIONS: 1. Vitamin D3. 2. Famotidine. 3. Amoxicillin. 4. Augmentin 875 mg p.o. q.12 hours. 5. Fluconazole 100 mg p.o. daily. 6. Lasix 40 mg p.o. daily. 7. Spironolactone 25 mg p.o. daily. 8. Amiodarone 200 mg p.o. daily. 9. Aspirin 81 mg daily. 10. Coreg 6.25 mg p.o. b.i.d. 11. Digoxin 0.125 mg p.o. daily. 12. Ezetimibe 1 tablet p.o. at bedtime. 13. Lisinopril 10 mg p.o. b.i.d. 14. Sertraline 25 mg p.o. daily. 15. Simvastatin 40 mg p.o. daily. PHYSICAL EXAMINATION: VITAL SIGNS: Blood pressures are 156/88, heart rate is 80, respiratory rate 20, saturation is 100% o n 60% FiO2. GENERAL: The patient is seen, sitting on the bed on BiPAP. She is alert and oriented. HEENT: Atraumatic, normocephalic. PERRLA. Extraocular movements were intact. Oral mucosa is pink a nd moist. CARDIOVASCULAR: S1, S2 normal. No murmurs, rubs or gallops. LUNGS: Bilateral air entry was equal. Crackles were noted and wheezing was noted bilaterally with i ncreased use of accessory muscles of respiration. ABDOMEN: Soft, nontender. No guarding, no rebound tenderness. Bowel sounds normal. MUSCULOSKELETAL: No calf tenderness. Pedal edema was noted, pitting type, 2+, up to the knees. No calf tenderness, no joint tenderness, no joint swelling. SKIN: No cyanosis, no erythema, no rash, no pallor. PLANT UTILITY PERSON: Cranial nerve examination II-XII intact. No focal deficits were noted. PSYCHIATRIC: No signs of suicidal ideation. No signs of tushar. NECK: JVD was noted. No thyromegaly. LABORATORY AND X-RAY FINDINGS: WBC 10.1, hemoglobin is 9.8, hematocrit is 30.6, platelets 455. INR 1.2. Blood gas was done showing a pH of 7.4, pCO2 of 42 and pO2 of 98. This was done on 100% FIO2. Her A-a gradient was 562. Sodium 130, potassium 4.2, chloride is 98, BUN 14, creatinine 1.09, blood sugar 199, lactic acid 4.4, troponin 0.034. BNP 976. Chest x-ray was done today showing an evidence of massive pulmonary edema, both the lungs. ASSESSMENT: 1. Acute hypoxic respiratory failure. 2. Acute congestive heart failure, likely diastolic dysfunction. 3. Uncontrolled hypertension. 4. History of coronary artery disease. 5. Non-ST elevation myocardial infarction. 6. Hyperlipidemia. 7. History of atrial fibrillation. 8. Anemia of chronic disease. PLAN: 1. Plan is to admit this patient to the ICU and closely monitor this patient on the BiPAP. Discusse d about the code status and the patient would like to be intubated if needed. At this time, the ramsey ent is on 60% FIO2 and saturating 100%. We will try to bring down the oxygenation to at least 90% to 92% to avoid oxygen toxicity. We will continue the patient on the Lasix at this time with 40 mg IV q.8 hours as she has a landon pulmonary edema and she has a good blood pressure reserve to continue wi th diuresis. We will restart the home medications of lisinopril and beta blockers. 2. The patient has mildly elevated troponins. We will closely monitor. Most likely this is a deman d ischemia. The patient is on aspirin. She is not in Eliquis as she was stopped a few weeks ago fol lowing her cardiac ablation. 3. The patient is mildly anemic with 9.8. Her baseline hemoglobin was 12, so the patient did mentio n that she was seeing some black stools, so we will do a stool occult test to look for any evidence o f bleeding. The patient had a recent upper GI and a colonoscopy, which was unremarkable. 4. The patient has poorly controlled blood pressures. We will optimize her blood pressure medicatio ns. Currently, she is on lisinopril, spironolactone and Coreg. We will closely monitor. 5. The patient has acute hypoxia episode and she has a very high arterial alveolar gradient, need to rule out any evidence of a pulmonary embolism contributing to this. At this time, she is very unsta ble, so we will do a lower extremity ultrasound to rule out any evidence of DVT, which could have bee n contributing to a pulmonary embolism. We will start the patient on Lovenox at this time at 40 mg s ubcu daily. 6. History of coronary artery disease. We will continue the patient on the aspirin and Cardiology h as been consulted because of the CHF exacerbation. As the patient did have a chest pain prior to thi s event, need to rule out any evidence of a coronary artery disease, currently underlying. 7. DVT prophylaxis. Lovenox. I spent 75 minutes with this patient. Of this, one hour as a critical care time.
[2017-11-18] MEDS ORDERED: Non-Formulary Item 1 EACH (Ezetimibe/Simvastatin [Vytorin] 1 TABLET) PO SCH (21:00)
[2017-11-18] MEDS ORDERED: Enoxaparin Sodium 40 MG/0.4 ML SYRINGE SC SCH (21:00)
[2017-11-18] MEDS: Lisinopril 10 MG TAB PO SCH (21:03)
[2017-11-18] MEDS: Ezetimibe 10 MG TAB PO SCH (21:03)
[2017-11-18] MEDS: Simvastatin 40 MG TAB PO SCH (21:04)
[2017-11-18] MEDS: Famotidine 20 MG TAB PO SCH (21:04)
[2017-11-18] MEDS ORDERED: Carvedilol 6.25 MG TAB PO SCH (21:15)
[2017-11-18 21:27] LABS: Lactic Acid 1.1 mmol/L (0.5-2.2)
[2017-11-18 23:06] VITALS: BMI 32.3
--- NOTE | 2017-11-18 23:24 | ULT ---
BILATERAL LOWER EXTREMITY VENOUS DOPPLER WITH SPECTRAL ANALYSIS AND COLOR FLOW EVALUATION: 11/18/2017 HISTORY: Bilateral lower extremity swelling. Shortness of breath. Bilateral lower extremity. CHF. TECHNIQUE: Lema-scale, color-flow, Doppler evaluation, and spectral analysis of the bilateral lower extremity ve nous structures is performed with 2D imaging. The bilateral lower extremity common femoral, superfic ial femoral, popliteal, posterior tibial, most proximal greater saphenous, and profunda femoral veins are imaged. FINDINGS: There is increased luminal echogenicity and absence of flow within the proximal and mid posterior tib ial vein, suggestive occlusive DVT in the right lower extremity posterior tibial vein. There is also increased luminal echogenicity within the proximal left posterior tibial vein with decreased flow in this region, suggesting near occlusive DVT involving the proximal left posterior tibial vein. There is otherwise normal lumen compressibility and flow in the remaining visualized deep venous stru ctures of the bilateral lower extremities. There is a curvilinear anechoic fluid collection seen in the region of the popliteal fossa on the rig ht, measuring approximately 4.8 cm x 1 cm x 0.7 cm, which does not demonstrate flow on color-flow samantha luation, and there is a question of thin, linear septation. This probably represents a small Fowler's cyst. IMPRESSION: 1. Occlusive deep venous thrombosis in the right lower extremity posterior tibial vein, with near oc clusive deep venous thrombosis involving the proximal left posterior tibial vein. 2. Fowler's cyst, right popliteal fossa. The above findings were discussed with Suad, the nurse in the CCU, on 11/18/2017 at 2316 hours. CODE CR POS: LEONID
[2017-11-18] MEDS ORDERED: Enoxaparin Sodium 30 MG/0.3 ML SYRINGE SC SCH (23:30)
--- NOTE | 2017-11-19 02:27 | CON ---
DATE OF CONSULTATION: 11/18/2017 HISTORY OF PRESENT ILLNESS: This is an 82-year-old female who was just recently discharged from the hospital, presented with increased shortness of breath to the ER. She has been in the ER since 1524. I was notified by the ER personal secretary that the patient is going to be coming to the ICU on a BiPAP. N o other doctors called me to inform me about the medical condition. She is now in the ICU and on non invasive ventilation BiPAP. Her sats in the custodial was 74%, went up to 86% by the EMS. She is awake, alert, responsive. She denies any chest pain, chills, or sweats. 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 PREVIOUS SURGERIES: Intubation, hernia, appendix, , stent, cataract surgery. MEDICATIONS: List of medicines prior to discharge: Aldactone 25, Zoloft 25, Zestril 10, DuoNeb, Las ix 40, Diflucan 100, Pepcid, Zetia 10, digoxin 0.125, Coreg 6.25, aspirin 81, antibiotics. ALLERGIES: None. She has now been started on amiodarone, neb treatments, Coreg, digoxin, Lovenox, Zetia, Zestril, Zolo ft, Zocor. She received 40 of Lasix 2 hours ago. SOCIAL/FAMILY HISTORY: As outlined in the recent medical records. Pertinent for no recent alcohol a buse, tobacco abuse. REVIEW OF SYSTEMS: Otherwise, 10 point negative. PHYSICAL EXAMINATION: GENERAL: She is awake, alert, responsive, on the BiPAP. Denies any discomfort. VITAL SIGNS: Saturations are 100% on the BiPAP, 50% FiO2; respirations 20; pulse 80; blood pressure 130/80. CHEST: Minimal crackles. CARDIAC: Normal S1, S2. No gallops. ABDOMEN: Soft. No tenderness. EXTREMITIES: No edema. NEUROLOGIC: She is awake, alert, responsive, moves all 4 extremities. LABORATORY DATA: White count 10,000, H&H 9 and 30, platelet count is 455, pO2 was 98, pCO2 0.742 on a nonrebreather. Electrolytes are normal. Lactic acid is 4.4. BNP is 976. Chest x-ray shows diffuse bilateral interstitial alveolar infiltrates consistent with CHF. IMPRESSION: Respiratory failure secondary to congestive heart failure, recent gastrointestinal bleed . Hemoglobin and hematocrit are stable. Additional Lasix has been ordered. Await input from Cardiology. Otherwise, supportive care. We will notify Dr. Eddy in the morning who had seen him in the past. This is a 45-minute critical care time.
[2017-11-19 05:20] LABS: #Lymphocytes 0.8 thou/uL (1.20-3.40); #Monocytes 0.1 thou/uL (0.11-0.59); #Neutrophils 5.8 thou/uL (1.40-6.50); %Basophils 0.1 % (0.0-1.0); %Eosinophils 0.1 % (0.0-10.0); %Lymphocytes 11.6 % (21.0-51.0); %Monocytes 1.1 % (0.0-10.0); %Neutrophils 87.1 % (42.0-75.0); Hemoglobin 8.6 g/dL (12.0-16.0); Mean Corpuscular HGB CONC 32.1 g/dL (32.0-36.0); Mean Corpuscular Hemoglobin 30.9 pg (27.0-31.0); Mean Corpuscular Volume 96.2 fl (81.0-99.0); Mean Platelet Volume 6.9 fL (7.4-10.4); Platelet Count 399 thou/uL (130-400); RBC Distribution Width 15.3 % (11.5-14.5); Red Blood Cell (RBC) Count 2.78 mill/uL (4.20-5.40); White Blood Cell (WBC) Count 6.6 thou/uL (4.8-10.8)
[2017-11-19 05:42] LABS: Anion Gap 11 mmol/L (10-20); BUN (Urea Nitrogen) 21 mg/dL (9.8-20.1); Calc. Creatinine Clearance 55 mL/min (70-130); Calcium 8.6 mg/dL (7.8-10.44); Carbon Dioxide 30 mmol/L (23-31); Chloride 99 mmol/L (98-107); Estimated GFR-MDRD 58; Glucose 156 mg/dL (83-110); Potassium 3.9 mmol/L (3.5-5.1); Sodium 136 mmol/L (136-145)
[2017-11-19] MEDS ORDERED: Furosemide 40 MG/4 ML VIAL SLOW IVP SCH (06:00)
[2017-11-19] MEDS ORDERED: Prevnar 13-Val Conj/PF 0.5 ML SYRINGE IM ONE (09:00)
[2017-11-19] MEDS: Spironolactone 25 MG TAB PO SCH (09:35)
[2017-11-19] MEDS: Amiodarone 200 MG TAB PO SCH (09:36)
[2017-11-19] MEDS: Carvedilol 6.25 MG TAB PO SCH ×2 (09:36→17:05)
[2017-11-19] MEDS: Famotidine 20 MG TAB PO SCH ×2 (09:36→21:02)
[2017-11-19] MEDS: Aspirin 81 mg Enteric Coated Tablet PO SCH (09:36)
[2017-11-19] MEDS: Digoxin 0.125 MG TAB PO SCH (09:37)
[2017-11-19] MEDS: Lisinopril 10 MG TAB PO SCH ×2 (09:37→20:55)
--- NOTE | 2017-11-19 12:56 | PRG ---
DATE OF SERVICE: 11/19/2017 SERVICE: Pulmonary Medicine. INTERVAL HISTORY: The patient is doing fine from a respiratory standpoint. Whenever we take her off the BiPAP, she will have some degree of desaturation. She breathes well for a period of 10-15 minut es, but then becomes a little bit winded and has to go back on. Ultimately, we are working on gettin g her on less O2. She has bilateral DVTs. There is a possibility that she could have developed a PE since her prior presentation. Establishing that diagnosis is actually mute, because that really narciso l not impact our interventions moving forward. PHYSICAL EXAMINATION: VITAL SIGNS: Afebrile, pulse 85, blood pressure 127/52, respirations 23, saturation 96% on room air. GENERAL: The patient is awake, alert, in no apparent distress. LUNGS: Decent air entry bilaterally. There is no prolonged expiratory phase or wheezing. HEART: Normal rate, regular. ABDOMEN: Soft, nontender, nondistended. Bowel sounds are positive. MUSCULOSKELETAL: No cyanosis or clubbing. There is trace pitting in the bilateral lower extremities . NEUROLOGIC: Grossly nonfocal. LABORATORY DATA: WBC 6.6, hemoglobin 8.6, platelets 399,000. INR 1.2. PH 7.42, pCO2 of 42, pO2 of 98 on a nonrebreather at that time. BUN 21. Basic metabolic profile is, otherwise, unremarkable wit h a creatinine of 0.92 and down trending. Lactate was 4.1, but has improved to 1.1. BNP 1500. Urin alysis is unremarkable. Blood cultures x2 are negative. Influenza A and B are negative. IMAGING: Ultrasound of the bilateral lower extremities demonstrates bilateral DVTs. Chest x-ray dem onstrates bilateral pleural effusions, pulmonary vascular congestion, interstitial fullness. A widen ed carinal angle is suggestive of left atrial enlargement. ASSESSMENT: 1. Acute hypoxic respiratory failure. 2. Acute on chronic systolic heart failure. 3. Severe mitral regurgitation. 4. Acute blood loss anemia, recent with unidentified source. 6. Deep vein thrombosis with presumed pulmonary embolism. PLAN: The patient will be diuresed until she returns euvolemia. We will continue giving her breaks off the BiPAP as tolerated. We will have her work with physical therapy and get her into a chair a c ouple times on a daily basis. She is on anticoagulation right now. We will trend her hemoglobin and watch for any blood loss. She is in a very difficult situation between her blood loss anemia and ne ed for anticoagulation. If the patient is not a candidate for anticoagulation, I do not think that a n IVC filter would be in her best interest. Pulmonary Critical Care will continue to follow. She wi ll need to remain in the ICU for an additional 24 hours until she can more fully tolerate breaks off BiPAP.
--- NOTE | 2017-11-19 13:38 | PDOC.PN ---
- Subjective Encounter Start Date: 11/19/17 Encounter Start Time: 11:00 Patient is seen today on NC, Doing well, She is Still SOB. She has noted Bilateral DVTs, Suggestive of possible PE contributing to SOB and Chest pain. - Objective Resuscitation Status: Resuscitation Status FULL:Full Resuscitation MAR Reviewed: Yes Vital Signs & Weight: Vital Signs (12 hours) Temp Pulse Pulse Pulse Resp BP BP 11/19/17 11:56 97.6 F 11/19/17 11:54 86 80 134/56 L 11/19/17 09:37 86 160/69 H 11/19/17 09:36 160/69 H 11/19/17 08:00 97.6 F 86 20 11/19/17 07:00 97.6 F 11/19/17 06:44 11/19/17 06:40 81 23 H 11/19/17 04:00 97.9 F BP Pulse Ox 11/19/17 11:56 11/19/17 11:54 147/60 H 11/19/17 09:37 11/19/17 09:36 11/19/17 08:00 95 11/19/17 07:00 11/19/17 06:44 92 L 11/19/17 06:40 92 L 11/19/17 04:00 Weight Weight 167 lb 12.348 oz Most Recent Monitor Data Heart Rate from ECG 75 NIBP 146/58 NIBP BP-Mean 70 Respiration from ECG 23 SpO2 91 I&O: 11/18/17 11/19/17 11/20/17 06:59 06:59 06:59 Intake Total 120 420 Output Total 880 550 Balance -760 -130 Result Diagrams: 11/19/17 04:13 11/19/17 04:13 Radiology Reviewed by me: Yes EKG Reviewed by me: Yes Phys Exam - Physical Examination HEENT: PERRLA, moist MMs Neck: no nodes, no JVD Respiratory: wheezing present Cardiovascular: RRR, no significant murmur Gastrointestinal: soft, non-tender Musculoskeletal: pulses present, edema present Neurological: non-focal, normal sensation Lymphatic: no nodes Psychiatric: normal affect, A&O x 3 Skin: no rash, normal turgor Dx/Plan (1) 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 Will do lovenox 1 mg kg BID (2) Acute blood loss anemia Code(s): D62 - ACUTE POSTHEMORRHAGIC ANEMIA Status: Acute Comment: Will clsoley Monitor no obvious bleeding noted. (3) Acute respiratory failure with hypoxia Code(s): J96.01 - ACUTE RESPIRATORY FAILURE WITH HYPOXIA Status: Acute Comment: Paitnt is not on Bipap now, on NC at 5 liters, Will closley Monitor. (4) Acute systolic CHF (congestive heart failure) Code(s): I50.21 - ACUTE SYSTOLIC (CONGESTIVE) HEART FAILURE Status: Acute Comment: Will continue pt on lasix 40mg IV TID, will follow Cardioogy recoimmedations, Echo is prdered to look for wall motion or any Right heart strain. (5) Anemia Code(s): D64.9 - ANEMIA, UNSPECIFIED Status: Acute (6) DM type 2 (diabetes mellitus, type 2) Status: Chronic Qualifiers: Diabetes mellitus knowledge architect insulin use: without knowledge architect use Diabetes mellitus complication status: with unspecified complications Qualified Code(s) : E11.8 - Type 2 diabetes mellitus with unspecified complications Comment: Continue on SSI, Hold metormnin. (7) HTN (hypertension) Code(s): I10 - ESSENTIAL (PRIMARY) HYPERTENSION Status: Chronic Qualifiers: Hypertension type: essential hypertension Qualified Code(s): I10 - Essential (primary) hypertension Comment: Continue on Lisinopril, Spironolactone, BB. - Plan cont current plan of care, PT/OT, social media campaign manager, respiratory therapy, incentive spirometry, DVT proph w/lovenox * . - Discharge Day Encounter end time: 11:35 Review of Systems - Review of Systems Constitutional: negative: fever, chills, sweats, weakness, malaise, other Eyes: negative: Pain, Vision Change, Conjunctivae Inflammation, Eyelid Inflammation, Redness, Other ENT: negative: Ear Pain, Ear Discharge, Nose Pain, Nose Discharge, Nose Congestion, Mouth Pain, Mouth Swelling, Throat Pain, Throat Swelling, Other Respiratory: Cough, Shortness of Breath, SOB with Excertion, Wheezing. negative : Dry, Hemoptysis, Pleuritic Pain, Sputum Cardiovascular: negative: chest pain, palpitations, orthopnea, paroxysmal nocturnal dyspnea, edema, light headedness, other Gastrointestinal: negative: Nausea, Vomiting, Abdominal Pain, Diarrhea, Constipation, Melena, Hematochezia, Other Musculoskeletal: negative: Neck Pain, Shoulder Pain, Arm Pain, Back Pain, Hand Pain, Leg Pain, Foot Pain, Other - Medications/Allergies Allergies/Adverse Reactions: Allergies Allergy/AdvReac Type Severity Reaction Status Date / Time No Known Allergies Allergy Verified 12/01/14 17:16 Medications: Current Medications Hydrocodone Bitart/Acetaminophen ([place] 5/325) 1 tab PO Q4H PRN PRN Reason: Moderate Pain (4-6) Hydrocodone Bitart/Acetaminophen ([place] 7.5/325) 1 tab PO Q4H PRN PRN Reason: Severe Pain (7-10) Albuterol/Ipratropium (Duoneb) 3 ml NEB [id number] Last Admin: 11/19/17 06:40 Dose: 3 ml Amiodarone HCl (Cordarone) 200 mg PO DAILY [facility] Last Admin: 11/19/17 09:36 Dose: 200 mg Aspirin (Ecotrin) 81 mg PO DAILY [facility] Last Admin: 11/19/17 09:36 Dose: 81 mg Carvedilol (Coreg) 6.25 mg PO BID-[facility] Last Admin: 11/19/17 09:36 Dose: 6.25 mg Digoxin (Lanoxin) 0.125 mg PO DAILY [facility] Last Admin: 11/19/17 09:37 Dose: 0.125 mg Ezetimibe (Zetia) 10 mg PO HS [facility] Last Admin: 11/18/17 21:03 Dose: 10 mg Enoxaparin Sodium (Lovenox) 80 mg SC 0900,2100 [facility] Famotidine (Pepcid) 20 mg PO BID [facility] Last Admin: 11/19/17 09:36 Dose: 20 mg Furosemide (Lasix) 40 mg SLOW IVP 0600 [facility] Lisinopril (Zestril) 10 mg PO BID [facility] Last Admin: 11/19/17 09:37 Dose: 10 mg Ondansetron HCl (Zofran Odt) 4 mg PO Q6H PRN PRN Reason: Nausea/Vomiting Sertraline HCl (Zoloft) 25 mg PO DAILY [facility] Last Admin: 11/19/17 09:36 Dose: 25 mg Simvastatin (Zocor) 40 mg PO HS [facility] Last Admin: 11/18/17 21:04 Dose: 40 mg Sodium Chloride (Flush - Normal Saline) 10 ml IVF Q12HR [facility] Sodium Chloride (Flush - Normal Saline) 10 ml IVF PRN PRN PRN Reason: Saline Flush Spironolactone (Aldactone) 12.5 mg PO DAILY [facility] Last Admin: 11/19/17 09:35 Dose: 12.5 mg
--- NOTE | 2017-11-19 15:38 | PDOC.CTH ---
Cardiology Progress Note - Subjective 82 yr old female with CAD s/p stent placement, chronic Afib, and HFrEF who presented to ER yesterday with c/o SOB. Reports SOB with onset yesterday morning and was then found with O2 sats in the 70s at her rehab facility in [place]. Originally treated for CHF exacerbation, requiring bipap, and then found to have LLE DVT with suspected PE. She did report some chest pain that lasted seconds and comes and goes. Located beneath left breast. She was just discharged from hospital 2 days prior to presentation. During that hospitalization she was thought to have Upper GI bleed and her anticoagulation was held 2 weeks ago. She underwent EGD/Colonoscopy with no clear evidence for Upper GI bleed however procedure then aborted due to flash pulmonary edema with acute hypoxic respiratory failure. A follow up colonoscopy revealed no clear evidence for source of bleed however was also noted to have a poor bowel prep. Upon discharge, she went to nursing facility and proceeded to have very little activity per patient and anticoagulation was not restarted. - ROS shortness of breath - Objective Vital Signs Temp Pulse Pulse Pulse Resp BP BP 11/19/17 14:22 79 20 11/19/17 11:56 97.6 F 11/19/17 11:54 86 80 134/56 L 11/19/17 09:38 90 79 138/51 L 11/19/17 09:37 86 160/69 H 11/19/17 09:36 160/69 H 11/19/17 08:00 97.6 F 86 20 11/19/17 07:00 97.6 F 11/19/17 06:44 11/19/17 06:40 81 23 H 11/19/17 04:00 97.9 F BP Pulse Ox Pulse Ox 11/19/17 14:22 89 L 11/19/17 11:56 11/19/17 11:54 147/60 H 11/19/17 09:38 132/59 L 93 L 11/19/17 09:37 11/19/17 09:36 11/19/17 08:00 95 11/19/17 07:00 11/19/17 06:44 92 L 11/19/17 06:40 92 L 11/19/17 04:00 Weight 76.1 kg 04/08/18 04/09/18 04/10/18 06:59 06:59 06:59 Intake Total 120 420 Output Total 880 725 Balance -760 -305 - Physical Examination General/Neuro: alert & oriented x3 Lungs: CTA Heart: other: (irregularly irregular without murmurs) Abdomen: NT/ND, soft Extremities: other: (RLE coniserably larger that LLE however no edeme in BLE.) - Labs Result Diagrams: 11/19/17 04:13 11/19/17 04:13 Troponin/CKMB CK-MB (CK-2) 0.8 ng/mL (0-6.6) 11/18/17 16:18 Troponin I 0.034 ng/mL (< 0.028) H 11/18/17 16:18 - Assessment/Plan A/P 82 yr old female with chronic a-fib not on anticoagulation prior to hospitalization and US confirmed LLE DVT. 1. Acute hypoxic respiratory failure- likely 2/2 # 2. Cont supplemental O2. see 2 2. LLE DVT- suspect likely PE however she has been started on therapeutic lovenox at this time. Question is whether oral anticoagulation can be restarted. In the event it cannot, would most likely recommend IVC filter. We have asked GI to come and reevaluate patient for restarting anticoagualtion since her recent suspected GI bleed. 3. chronic a-fib- rate controlled at this time. 4. Acute on chronic a- fib-cont diuresis. see 2 5. recent blood loss anemia
--- NOTE | 2017-11-19 16:34 | PRG ---
DATE OF SERVICE: 11/19/2017 SUBJECTIVE: The patient denies any GI complaints. She has had no nausea or vomiting, no abdominal p ain. She is having good bowel movements. OBJECTIVE: VITAL SIGNS: Shows temperature 97.9, pulse 76, blood pressure 143/60, respiratory rate of 28. CHEST: Clear. CARDIOVASCULAR: Regular rate and rhythm. ABDOMEN: Benign. LABORATORY DATA: Shows hemoglobin 8.6, hematocrit 26.8, platelet count is 399, white blood cell coun t of 6.6. ASSESSMENT: 1. Deep vein thrombosis - I do not see any contraindication to anticoagulation at this time. 2. Chronic atrial fibrillation. 3. Anemia - patient underwent a previous esophagogastroduodenoscopy which was normal. Colonoscopy w as normal although the prep was poor. No masses or blood was seen in the GI tract. RECOMMENDATIONS: 1. Okay to proceed with anticoagulation. 2. Continue to follow hemoglobin and hematocrit while hospitalized.
[2017-11-19] MEDS: Enoxaparin Sodium 80 MG/0.8 ML SYRINGE SC SCH (20:54)
[2017-11-19] MEDS: Ezetimibe 10 MG TAB PO SCH (20:54)
[2017-11-19] MEDS: Simvastatin 40 MG TAB PO SCH (20:55)
[2017-11-20] MEDS: Furosemide 40 MG/4 ML VIAL SLOW IVP SCH (06:10)
[2017-11-20] MEDS: Lisinopril 10 MG TAB PO SCH (08:39)
[2017-11-20] MEDS: Spironolactone 25 MG TAB PO SCH (08:39)
[2017-11-20] MEDS: Digoxin 0.125 MG TAB PO SCH (08:39)
[2017-11-20] MEDS: Aspirin 81 mg Enteric Coated Tablet PO SCH (08:39)
[2017-11-20] MEDS: Famotidine 20 MG TAB PO SCH ×2 (08:39→20:44)
[2017-11-20] MEDS: Enoxaparin Sodium 80 MG/0.8 ML SYRINGE SC SCH ×2 (08:40→20:43)
[2017-11-20] MEDS: Amiodarone 200 MG TAB PO SCH (08:40)
[2017-11-20] MEDS: Carvedilol 6.25 MG TAB PO SCH ×2 (08:43→17:23)
--- NOTE | 2017-11-20 09:46 | PRG ---
DATE OF SERVICE: 11/20/2017 SERVICE: Pulmonary Medicine. INTERVAL HISTORY: The patient is doing fine from a respiratory standpoint. She has been off of her BiPAP since yesterday. She has no complaints of fevers, chills, nausea, vomiting or chest discomfort . Oxygen requirements are actually decreasing ever so slightly. PHYSICAL EXAMINATION: VITAL SIGNS: Afebrile, pulse 90, blood pressure 159/82, respirations 21, saturation 94% on 5 liters nasal cannula. GENERAL: The patient is awake, alert, no apparent distress. LUNGS: Decent air entry. Dependent crackles are minimal. HEART: Normal rate and regular. ABDOMEN: Soft, nontender, and nondistended. Bowel sounds are positive. MUSCULOSKELETAL: No cyanosis or clubbing. There is trace pitting in the bilateral lower extremities . NEUROLOGIC: Grossly nonfocal. LABORATORY DATA: Magnesium 2.0. Blood cultures x2 are unremarkable. Influenza is negative. IMAGING: Echocardiogram demonstrates 30%-35% ejection fraction. Moderately depressed left ventricul ar function is overall there. Severe mitral regurgitation is evident. ASSESSMENT: 1. Acute hypoxic respiratory failure, improving. 2. Acute on chronic systolic heart failure. 3. Severe mitral regurgitation. 4. Acute blood loss anemia with recent unidentified source. 5. Deep venous thrombosis with presumed pulmonary embolism. DISCUSSION AND PLAN: We will continue to wean oxygen as tolerated. The patient is currently stable for transition out of the ICU to the telemetry unit. Pulmonary or Critical Care will continue to fol low while she remains inhouse for the time being. Ultimately, in another day or two, if her hemoglob ins remain stable, she can be considered for transition out of the hospital on longer acting therapy. For the time being, I will continue Lovenox.
--- NOTE | 2017-11-20 17:54 | PDOC.PN ---
- Subjective Encounter Start Date: 11/20/17 Encounter Start Time: 17:00 Subjective: f/u for acute hypoxic resp failure and systolic CHF initially managed with -: BiPAP now on NC. Overall feeling better and less SOB. - Objective Resuscitation Status: Resuscitation Status DNR:Do Not Resuscitate MAR Reviewed: Yes Vital Signs & Weight: Vital Signs (12 hours) Temp Pulse Pulse Pulse Resp BP BP 11/20/17 17:23 159/82 H 11/20/17 16:16 97.7 F 84 28 H 11/20/17 12:00 98.8 F 11/20/17 11:59 11/20/17 11:58 77 18 11/20/17 11:30 75 81 140/58 L 11/20/17 08:53 11/20/17 08:52 90 21 H 11/20/17 08:43 159/82 H 11/20/17 08:39 88 159/82 H 11/20/17 07:31 97.9 F 88 21 H BP BP Pulse Ox Pulse Ox Pulse Ox 11/20/17 17:23 11/20/17 16:16 176/74 H 91 L 11/20/17 12:00 11/20/17 11:59 96 11/20/17 11:58 96 11/20/17 11:30 156/64 H 83 L 94 L 11/20/17 08:53 94 L 11/20/17 08:52 94 L 11/20/17 08:43 11/20/17 08:39 11/20/17 07:31 96 Weight Weight 168 lb 10.458 oz Most Recent Monitor Data Heart Rate from ECG 90 NIBP 157/66 NIBP BP-Mean 108 Respiration from ECG 23 SpO2 91 I&O: 11/19/17 11/20/17 11/21/17 06:59 06:59 06:59 Intake Total 120 700 480 Output Total 612 9577 4014 Balance -615 -567 -060 Result Diagrams: 11/19/17 04:13 11/19/17 04:13 Additional Labs: Microbiology 11/18/17 17:08 Nasal swab Influenza Types A,B Direct EIA - Final 11/18/17 17:14 Venous blood - Right Arm Blood Culture - Preliminary NO GROWTH AT 48 HOURS 11/18/17 16:19 Venous blood - Right Arm Blood Culture - Preliminary NO GROWTH AT 48 HOURS Laboratory Tests 11/14/17 11/18/17 11/18/17 05:12 16:18 16:18 WBC 10.1 Hgb 8.0 L 9.8 L Plt Count 455 H Creatinine 1.09 Estimated GFR (MDRD) 48 Lactic Acid B-Natriuretic Peptide 11/18/17 11/18/17 11/18/17 16:18 16:18 21:01 WBC Hgb Plt Count Creatinine Estimated GFR (MDRD) Lactic Acid 4.4 H* 1.1 B-Natriuretic Peptide 976.9 H 11/19/17 04:13 WBC Hgb Plt Count Creatinine Estimated GFR (MDRD) Lactic Acid B-Natriuretic Peptide 1544.5 H Radiology Reviewed by me: Yes (2D echo - EF 30-35%, severe MR, mod TR) EKG Reviewed by me: Yes (Tele - A-fib rate controlled) Phys Exam - Physical Examination Constitutional: NAD alert, responsive HEENT: PERRLA, oral pharynx no lesions Neck: no nodes, no JVD, supple bibasilar crackles, diminished in bases Respiratory: no wheezing II/IV JOEY LUSB Cardiovascular: irregular Gastrointestinal: soft, non-tender, no distention, positive bowel sounds mild LE edema, RLE> LLE Musculoskeletal: pulses present Neurological: non-focal, normal sensation, moves all 4 limbs Psychiatric: normal affect, A&O x 3 Skin: normal turgor, cap refill <2 seconds Dx/Plan (1) Acute respiratory failure with hypoxia Code(s): J96.01 - ACUTE RESPIRATORY FAILURE WITH HYPOXIA Status: Acute Comment: Paitnt is not on Bipap now, on NC at 5 liters, wean as clinically indicated, likely multifactorial resp failure (2) Acute systolic CHF (congestive heart failure) Code(s): I50.21 - ACUTE SYSTOLIC (CONGESTIVE) HEART FAILURE Status: Acute Comment: Will continue pt on lasix 40mg IV q12, EF 35% range, improved (3) 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 PE, CT Angio chest in am, continue Lovenox 80mg sc q12h, likely will need detention anticoagulation given DVT's and chronic a-fib (4) Afib Code(s): I48.91 - UNSPECIFIED ATRIAL FIBRILLATION Status: Chronic Qualifiers: Atrial fibrillation type: chronic Qualified Code(s): I48.2 - Chronic atrial fibrillation Comment: Rate controlled currently, continue Amiodarone, Coreg and Digoxin, s/p recent partial ablation that was terminated after flash pulm edema - Plan PT/OT, social work therapist, respiratory therapy, DVT proph w/SCDs Stable overall -: Transfer to telemetry unit -: Continue Lasix 40mg IV q12h -: Continue Lovenox 80mg sc q12h -: CT angio chest to r/o PE * Serial H/H monitoring * Wean off O2 as clinically indicated * AM lab: BMP, BNP, H/H, stool guaiac
[2017-11-20] MEDS: Ezetimibe 10 MG TAB PO SCH (20:44)
[2017-11-20] MEDS: Lisinopril 20 MG TAB PO SCH (20:44)
[2017-11-20] MEDS: Simvastatin 40 MG TAB PO SCH (20:44)
--- NOTE | 2017-11-21 00:20 | PRG ---
DATE OF SERVICE: 11/20/2017 SUBJECTIVE: Ms. Deng has had no overt bleeding since starting anticoagulation with Lovenox. OBJECTIVE: ABDOMEN: Soft, nontender, nondistended. Bowel sounds are present. LABORATORY DATA: Her hemoglobin is stable at 8.6. IMPRESSION: History of iron deficiency anemia. Upper and lower endoscopy were negative previous [facility] stay. RECOMMENDATIONS: Okay to continue with anticoagulation from a GI standpoint. I will sign off for no w. Please call if GI can be of assistance.
[2017-11-21] MEDS: Furosemide 40 MG/4 ML VIAL SLOW IVP SCH (05:17)
[2017-11-21 06:09] LABS: Hemoglobin 8.1 g/dL (12.0-16.0)
[2017-11-21 06:22] LABS: Anion Gap 12 mmol/L (10-20); BUN (Urea Nitrogen) 29 mg/dL (9.8-20.1); Calc. Creatinine Clearance 18 mL/min (70-130); Calcium 8.7 mg/dL (7.8-10.44); Carbon Dioxide 33 mmol/L (23-31); Chloride 97 mmol/L (98-107); Estimated GFR-MDRD 65; Glucose 123 mg/dL (83-110); Sodium 138 mmol/L (136-145)
[2017-11-21] MEDS ORDERED: ISOVUE-370 76%-LOCM 1 ML ONE (08:18)
[2017-11-21] MEDS: Lisinopril 20 MG TAB PO SCH ×2 (09:50→20:46)
[2017-11-21] MEDS: Famotidine 20 MG TAB PO SCH ×2 (09:50→20:46)
[2017-11-21] MEDS: Aspirin 81 mg Enteric Coated Tablet PO SCH (09:51)
[2017-11-21] MEDS: Spironolactone 25 MG TAB PO SCH (09:51)
[2017-11-21] MEDS: Carvedilol 6.25 MG TAB PO SCH ×3 (09:51→20:46)
[2017-11-21] MEDS: Enoxaparin Sodium 80 MG/0.8 ML SYRINGE SC SCH ×2 (09:52→20:46)
[2017-11-21] MEDS: Digoxin 0.125 MG TAB PO SCH (09:52)
[2017-11-21] MEDS: Amiodarone 200 MG TAB PO SCH (09:52)
--- NOTE | 2017-11-21 11:36 | PDOC.PN ---
- Subjective Encounter Start Date: 11/21/17 Encounter Start Time: 11:30 Subjective: f/u for acute resp failure, systolic CHF and suspected PE with known bilat -: DVT's on Lovenox. Remains on O2 supplementation currently on VM. -: States increased SOB this am and feels weak. - Objective Resuscitation Status: Resuscitation Status DNR:Do Not Resuscitate MAR Reviewed: Yes Vital Signs & Weight: Vital Signs (12 hours) Temp Pulse Resp BP BP Pulse Ox 11/21/17 09:52 84 11/21/17 09:51 136/70 11/21/17 09:50 130/60 11/21/17 07:35 97.9 F 78 18 136/70 98 11/21/17 07:30 97.9 F 78 18 98 11/21/17 06:57 88 L 11/21/17 06:55 87 16 88 L 11/21/17 04:00 98.0 F 87 20 115/55 L 11/21/17 03:48 92 L 11/21/17 01:48 83 18 89 L 11/21/17 00:00 98.5 F 87 20 162/70 H 92 L Weight Weight 49 lb 9 oz Most Recent Monitor Data Heart Rate from ECG 90 NIBP 157/66 NIBP BP-Mean 108 Respiration from ECG 23 SpO2 91 I&O: 11/20/17 11/21/17 11/22/17 06:59 06:59 06:59 Intake Total 700 1380 Output Total 1225 1725 Balance -525 -345 Result Diagrams: 11/21/17 05:42 11/21/17 05:42 Additional Labs: Accuchecks 11/21/17 11/20/17 05:31 21:02 POC Glucose 134 H 135 H Microbiology 11/18/17 17:08 Nasal swab Influenza Types A,B Direct EIA - Final 11/18/17 17:14 Venous blood - Right Arm Blood Culture - Preliminary NO GROWTH AT 48 HOURS 11/18/17 16:19 Venous blood - Right Arm Blood Culture - Preliminary NO GROWTH AT 48 HOURS Laboratory Tests 11/14/17 11/18/17 11/18/17 05:12 16:18 16:18 WBC 10.1 Hgb 8.0 L 9.8 L Plt Count 455 H Creatinine 1.09 Estimated GFR (MDRD) 48 Lactic Acid Magnesium B-Natriuretic Peptide 11/18/17 11/18/17 11/18/17 16:18 16:18 21:01 WBC Hgb Plt Count Creatinine Estimated GFR (MDRD) Lactic Acid 4.4 H* 1.1 Magnesium B-Natriuretic Peptide 976.9 H 11/19/17 11/19/17 11/20/17 04:13 04:13 04:15 WBC Hgb 8.6 L Plt Count Creatinine Estimated GFR (MDRD) Lactic Acid Magnesium 2.0 B-Natriuretic Peptide 1544.5 H 11/21/17 05:42 WBC Hgb Plt Count Creatinine Estimated GFR (MDRD) Lactic Acid Magnesium B-Natriuretic Peptide 891.1 H Radiology Reviewed by me: Yes (2D echo - EF 30-35%, severe MR, mod TR) EKG Reviewed by me: Yes (Tele - A-fib in 80's) Phys Exam - Physical Examination alert, responsive to questions on VM HEENT: PERRLA, oral pharynx no lesions Neck: no JVD, supple diminished in bases, few scattered coarse sounds Respiratory: no wheezing, no rales II/IV JOEY in LUSB Cardiovascular: irregular Gastrointestinal: soft, non-tender, no distention, positive bowel sounds mild edema of bilat LE's Musculoskeletal: pulses present Neurological: non-focal, normal sensation, moves all 4 limbs Psychiatric: A&O x 3 Skin: no rash, normal turgor, cap refill <2 seconds Dx/Plan (1) Acute respiratory failure with hypoxia Code(s): J96.01 - ACUTE RESPIRATORY FAILURE WITH HYPOXIA Status: Acute Comment: Initially managed with BiPAP now on VM at 15L/min, wean as clinically indicated, likely multifactorial resp failure but concern for PE's given lower extremity DVT's (2) Acute systolic CHF (congestive heart failure) Code(s): I50.21 - ACUTE SYSTOLIC (CONGESTIVE) HEART FAILURE Status: Acute Comment: Will continue pt on lasix 40mg IV q12, EF 35% range, improved (3) 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 PE, CT Angio chest pending, continue Lovenox 80mg sc q12h, likely will need usp anticoagulation given DVT's and chronic a-fib (4) Afib Code(s): I48.91 - UNSPECIFIED ATRIAL FIBRILLATION Status: Chronic Qualifiers: Atrial fibrillation type: chronic Qualified Code(s): I48.2 - Chronic atrial fibrillation Comment: Rate controlled currently, continue Amiodarone, Coreg and Digoxin, s/p recent partial ablation that was terminated after flash pulm edema - Plan plan discussed w/ family, PT/OT, psychiatric social worker supervisor, respiratory therapy Continue for O2 support to maintain O2 sats >90% -: CT angio chest today to confirm PE's -: Continue Lovenox 80mg sc q12h -: Serial H/H monitoring given anticoagulation -: Continue Duonebs q4h prn * AM lab: BMP, H/H
[2017-11-21] MEDS ORDERED: Furosemide 40 MG/4 ML VIAL SLOW IVP SCH (14:00)
--- NOTE | 2017-11-21 14:17 | PRG ---
DATE OF SERVICE: 11/21/2017 SERVICE: Pulmonary Medicine. INTERVAL HISTORY: The patient is doing poorly from a respiratory standpoint. Her oxygen requirement s have gone up. This morning, she is 82% on 4 liters nasal cannula. As such, they put her on 50% ve ntimask in order to improve that. Later on, she is being prepared for moving down for a CT of the est. When this occurred, she was taken off her oxygen for a couple of minutes. She desaturated down to 54%. Otherwise, there has been no interval change to her condition. She denies any cough or hem optysis. PHYSICAL EXAMINATION: VITAL SIGNS: Afebrile, pulse 81, blood pressure 145/65, respirations 24, saturation 98% on 50% venti mask. HEENT: Normocephalic, atraumatic. Sclerae are white. Conjunctivae pink. Oral and nasal mucosa is moist without lesions. LUNGS: Extensive crackles are present throughout bilateral lung yu. HEART: Normal rate, regular. ABDOMEN: Soft, nontender, nondistended. Bowel sounds are positive. MUSCULOSKELETAL: No cyanosis or clubbing. There is no pitting in the bilateral lower extremities. NEUROLOGIC: Grossly nonfocal. LABORATORY DATA: Hemoglobin 8.1 and down trending slowly. Chloride 97, creatinine 0.83, bicarbonate 33 and gently up trending. Basic metabolic profile is, otherwise, unremarkable. BNP is down trendi ng to 891. Magnesium 2.0. Blood culture x2 and influenza remain negative. IMAGING: A repeat echocardiogram demonstrates 30% ejection fraction with severe mitral regurgitant f low. ASSESSMENT: 1. Acute hypoxic respiratory failure, getting worse once again. 2. 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 3. Severe mitral regurgitation. 4. Acute blood loss anemia with unidentified source. 5. Deep vein thrombosis with presumed pulmonary embolism. DISCUSSION AND PLAN: I will move forward with a CT scan. It really does not matter if we know if th ere is a PE. It does not change what we need to do. That being said, please see extensive ground-gl ass opacifications and/or crazy paving, it make it more likely for her to have a pulmonary hemorrhage syndrome. My suspicion is that we are dealing with severe heart failure associated with horrendous mitral regurgitation. Pulmonary will continue to follow along for the time being. We will restart h joni Lasix.
--- NOTE | 2017-11-21 14:42 | CT ---
CTA OF CHEST WITH CONTRAST: Date: 11/21/17 COMPARISON: 08/12/14. HISTORY: Chest pain and shortness of breath. Evaluate for pulmonary thromboembolism. TECHNIQUE: Multiple contiguous axial images were obtained in a CTA of the chest with contrast per pulmonary embo lism protocol. 3D oblique MIP reformats and direct coronal reformats were performed. FINDINGS: There are diffuse multifocal mixed interstitial and alveolar opacities in the lungs. These have worse xavi compared to the prior examination. No pneumothorax or pleural effusions are seen. No filling defects are seen within the pulmonary arteries to suggest an acute pulmonary thromboemboli sm. No hilar or mediastinal lymphadenopathy are seen. The heart is normal in size without focal cardi ac abnormality. Calcifications are seen in the coronal arteries and aorta. Degenerative changes are seen in the spine. The patient is status post cholecystectomy. The visualize d subdiaphragmatic structures are unremarkable. The chest wall soft tissues are unremarkable. IMPRESSION: 1. No evidence of pulmonary thromboembolism. 2. Multifocal mixed alveolar/interstitial opacities may represent multifocal pneumonia or worsening of chronic interstitial disease. POS: [facility]
[2017-11-21] MEDS: Vancomycin HCl 1.25 GM in Sodium Chloride 0.9% 250 ML 250 ML IVPB SCH (16:46)
[2017-11-21] MEDS: Cefepime 2 GM, Syringe 2.5 ML in Sodium Chloride 0.9% 10 ML SLOW IVP SCH (16:47)
[2017-11-21] MEDS: Simvastatin 40 MG TAB PO SCH (20:46)
[2017-11-21] MEDS: Ezetimibe 10 MG TAB PO SCH (20:46)
[2017-11-22] MEDS: Cefepime 2 GM, Syringe 2.5 ML in Sodium Chloride 0.9% 10 ML SLOW IVP SCH ×2 (05:30→16:38)
[2017-11-22] MEDS: Furosemide 40 MG/4 ML VIAL SLOW IVP SCH (06:08)
[2017-11-22 08:07] LABS: Hemoglobin 8.2 g/dL (12.0-16.0); Platelet Count 423 thou/uL (130-400)
[2017-11-22 08:13] LABS: Anion Gap 15 mmol/L (10-20); BUN (Urea Nitrogen) 24 mg/dL (9.8-20.1); Calc. Creatinine Clearance 59 mL/min (70-130); Calcium 8.7 mg/dL (7.8-10.44); Carbon Dioxide 32 mmol/L (23-31); Chloride 96 mmol/L (98-107); Estimated GFR-MDRD 68; Glucose 84 mg/dL (83-110); Potassium 3.7 mmol/L (3.5-5.1); Sodium 139 mmol/L (136-145)
--- NOTE | 2017-11-22 08:42 | PDOC.PN ---
- Subjective Encounter Start Date: 11/22/17 Encounter Start Time: 08:40 Subjective: continues to feel weak and very SOB on movement -: poor appetite - Objective Resuscitation Status: Resuscitation Status DNR:Do Not Resuscitate MAR Reviewed: Yes Vital Signs & Weight: Vital Signs (12 hours) Temp Pulse Resp BP BP Pulse Ox 11/22/17 07:47 98.5 F 92 23 H 165/70 H 91 L 11/22/17 04:00 98.0 F 82 23 H 160/68 H 93 L 11/22/17 00:10 73 26 H 96 11/22/17 00:05 98.5 F 84 20 143/66 H 94 L 11/21/17 20:46 167/73 H 11/21/17 20:45 97.8 F 77 21 H 167/73 H 95 Weight Weight 158 lb Most Recent Monitor Data Heart Rate from ECG 90 NIBP 157/66 NIBP BP-Mean 108 Respiration from ECG 23 SpO2 91 I&O: 11/21/17 11/22/17 11/23/17 06:59 06:59 06:59 Intake Total 1380 274 Output Total 1725 2150 Balance -345 -1876 Result Diagrams: 11/22/17 04:43 11/22/17 07:34 Additional Labs: Microbiology 11/18/17 17:08 Nasal swab Influenza Types A,B Direct EIA - Final 11/16/17 22:00 Nasal swab MRSA Screen - Final Negative--No MRSA Colonization 11/18/17 17:14 Venous blood - Right Arm Blood Culture - Preliminary NO GROWTH AT 48 HOURS 11/18/17 16:19 Venous blood - Right Arm Blood Culture - Preliminary NO GROWTH AT 48 HOURS Laboratory Tests 11/18/17 11/18/17 11/18/17 16:18 16:18 16:18 Lactic Acid 4.4 H* Troponin I 0.034 H B-Natriuretic Peptide 976.9 H 11/18/17 11/19/17 11/21/17 21:01 04:13 05:42 Lactic Acid 1.1 Troponin I B-Natriuretic Peptide 1544.5 H 891.1 H Phys Exam - Physical Examination weak,easily winded,pale HEENT: PERRLA, moist MMs, sclera anicteric Neck: no JVD Respiratory: wheezing present Cardiovascular: RRR, no significant murmur Gastrointestinal: soft, non-tender, no distention, positive bowel sounds Musculoskeletal: no edema, pulses present Neurological: non-focal, normal sensation, moves all 4 limbs Psychiatric: normal affect, A&O x 3 Skin: no rash Dx/Plan (1) Acute respiratory failure with hypoxia Code(s): J96.01 - ACUTE RESPIRATORY FAILURE WITH HYPOXIA Status: Acute Comment: Initially managed with BiPAP now on VM at 15L/min, wean as clinically indicated, likely multifactorial resp failure.PE ruled out.? Amiodarone toxicity Vs Pulmonary edema Vs infection. 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 Code(s): I82.533 - CHRONIC EMBOLISM AND THROMBOSIS OF POPLITEAL VEIN, BILATERAL Status: Acute Comment: Patient has Bilateral DVT withruled out PE,will need half-way anticoagulation given DVT's and chronic a-fib (4) Anemia Code(s): D64.9 - ANEMIA, UNSPECIFIED Status: Chronic (5) Afib Code(s): I48.91 - UNSPECIFIED ATRIAL FIBRILLATION Status: Chronic Qualifiers: Atrial fibrillation type: chronic Qualified Code(s): I48.2 - Chronic atrial fibrillation Comment: Rate controlled currently,Coreg and Digoxin, s/p recent partial ablation that was terminated after flash pulm edema.Amiodarone stopped by cardiology for concerns for pulmonary toxicity (6) CAD (coronary artery disease) Code(s): I25.10 - ATHSCL HEART DISEASE OF [place] CORONARY ARTERY W/O ANG PCTRS Status: Chronic Qualifiers: Coronary Disease-Associated Artery/Lesion type: [place] artery [place] vs. transplanted heart: [place] heart (7) Cardiomyopathy Code(s): I42.9 - CARDIOMYOPATHY, UNSPECIFIED Status: Chronic Qualifiers: Cardiomyopathy type: ischemic Qualified Code(s): I25.5 - Ischemic cardiomyopathy Comment: ef of 25-30%.on ASA,BB,KADE-I,Aldactone,Digoxin (8) DM type 2 (diabetes mellitus, type 2) Status: Chronic Qualifiers: Diabetes mellitus [employer] insulin use: without usp use Diabetes mellitus complication status: with unspecified complications Qualified Code(s) : E11.8 - Type 2 diabetes mellitus with unspecified complications Comment: Continue on SSI, Hold metormnin. (9) HTN (hypertension) Code(s): I10 - ESSENTIAL (PRIMARY) HYPERTENSION Status: Chronic Qualifiers: Hypertension type: essential hypertension Qualified Code(s): I10 - Essential (primary) hypertension Comment: Continue on Lisinopril, Spironolactone, BB. (10) Recent GI bleed with Normal Endoscopy Status: Acute Comment: GI cleared to restart Anticoagulation (11) Severe mitral regurgitation Code(s): I34.0 - NONRHEUMATIC MITRAL (VALVE) INSUFFICIENCY Status: Chronic - Plan continue antibiotics, PT/OT, respiratory therapy, incentive spirometry, out of bed/ambulate, DVT proph w/SCDs Cont Pulmonary support& IV ABx,IV lasix,nebs etc.PCCM following -: Amiodarone stopped d/t concerns for lung toxicity.cont coreg & Digoxin.NSR -: cont AC.Change from Lovenox BID to PO eliquis.Cardiology following. -: Check Iron indices & will give IV Iron if low.H/H stable.Monitor. -: encourged for increased PO intake and ambulation but gets winded easily. * .cont meds as below.Strict I/Os. * Severe MR hampering quick turn around.Prognosis remains poor. * DNR.PCT following as well. * am labs Review of Systems - Review of Systems Constitutional: weakness, malaise Respiratory: Cough, Shortness of Breath, SOB with Excertion, Wheezing Cardiovascular: negative: chest pain, palpitations, orthopnea, paroxysmal nocturnal dyspnea, edema, light headedness, other Gastrointestinal: negative: Nausea, Vomiting, Abdominal Pain, Diarrhea, Constipation, Melena, Hematochezia, Other Genitourinary: negative: Dysuria, Frequency, Incontinence, Hematuria, Retention , Other Musculoskeletal: negative: Neck Pain, Shoulder Pain, Arm Pain, Back Pain, Hand Pain, Leg Pain, Foot Pain, Other Skin: negative: Rash, Lesions, Girish, Bruising, Other Neurological: negative: Weakness, Numbness, Incoordination, Change in Speech, Confusion, Seizures, Other - Medications/Allergies Allergies/Adverse Reactions: Allergies Allergy/AdvReac Type Severity Reaction Status Date / Time No Known Allergies Allergy Verified 12/01/14 17:16 Medications: Current Medications Hydrocodone Bitart/Acetaminophen ([place] 5/325) 1 tab PO Q4H PRN PRN Reason: Moderate Pain (4-6) Hydrocodone Bitart/Acetaminophen ([place] 7.5/325) 1 tab PO Q4H PRN PRN Reason: Severe Pain (7-10) Last Admin: 11/19/17 20:54 Dose: 1 tab Albuterol/Ipratropium (Duoneb) 3 ml NEB [id number] [facility] Last Admin: 11/22/17 06:28 Dose: 3 ml Aspirin (Ecotrin) 81 mg PO DAILY [facility] Last Admin: 11/21/17 09:51 Dose: 81 mg Carvedilol (Coreg) 6.25 mg PO TID [facility] Last Admin: 11/21/17 20:46 Dose: 6.25 mg Digoxin (Lanoxin) 0.125 mg PO DAILY [facility] Last Admin: 11/21/17 09:52 Dose: 0.125 mg Ezetimibe (Zetia) 10 mg PO HS [facility] Last Admin: 11/21/17 20:46 Dose: 10 mg Enoxaparin Sodium (Lovenox) 80 mg SC 0900,2100 [facility] Last Admin: 11/21/17 20:46 Dose: 80 mg Famotidine (Pepcid) 20 mg PO BID [facility] Last Admin: 11/21/17 20:46 Dose: 20 mg Furosemide (Lasix) 40 mg SLOW IVP 0600 [facility] Last Admin: 11/22/17 06:08 Dose: 40 mg Hydralazine HCl (Apresoline) 25 mg PO BID [facility] Cefepime HCl 2 gm/ Syringe 2.5 (ml/ Sodium Chloride) 12.5 mls @ 150 mls/hr SLOW IVP 0500,1700 [facility] Last Admin: 11/22/17 05:30 Dose: 12.5 mls Vancomycin HCl 1.25 gm/ Sodium (Chloride) 250 mls @ 166.667 mls/hr IVPB 1700 [facility] Last Admin: 11/21/17 16:46 Dose: 250 mls Lisinopril (Zestril) 20 mg PO BID [facility] Last Admin: 11/21/17 20:46 Dose: 20 mg Miscellaneous Medication (Pharmacy To Dose) 1 each IVPB PRN PRN PRN Reason: . Ondansetron HCl (Zofran Odt) 4 mg PO Q6H PRN PRN Reason: Nausea/Vomiting Last Admin: 11/20/17 06:20 Dose: 4 mg Sertraline HCl (Zoloft) 25 mg PO DAILY [facility] Last Admin: 11/21/17 09:51 Dose: 25 mg Simvastatin (Zocor) 40 mg PO HS [facility] Last Admin: 11/21/17 20:46 Dose: 40 mg Sodium Chloride (Flush - Normal Saline) 10 ml IVF Q12HR [facility] Last Admin: 11/21/17 20:47 Dose: 10 ml Sodium Chloride (Flush - Normal Saline) 10 ml IVF PRN PRN PRN Reason: Saline Flush Last Admin: 11/22/17 06:08 Dose: 10 ml Spironolactone (Aldactone) 12.5 mg PO DAILY [facility] Last Admin: 11/21/17 09:51 Dose: 12.5 mg
[2017-11-22] MEDS: Digoxin 0.125 MG TAB PO SCH (09:22)
[2017-11-22] MEDS: hydrALAZINE 25 MG TAB PO SCH ×2 (09:23→20:54)
[2017-11-22] MEDS: Aspirin 81 mg Enteric Coated Tablet PO SCH (09:24)
[2017-11-22] MEDS: Carvedilol 6.25 MG TAB PO SCH ×3 (09:24→20:53)
[2017-11-22] MEDS: Enoxaparin Sodium 80 MG/0.8 ML SYRINGE SC SCH (09:24)
[2017-11-22] MEDS: Spironolactone 25 MG TAB PO SCH (09:25)
[2017-11-22] MEDS: Lisinopril 20 MG TAB PO SCH ×2 (09:25→20:54)
[2017-11-22] MEDS: Famotidine 20 MG TAB PO SCH ×2 (09:25→20:54)
[2017-11-22] MEDS ORDERED: Lacri-Lube Opth Oint 3.5 GM TUBE EA EYE PRN (09:59)
[2017-11-22 14:26] LABS: Iron 23 ug/dL (50-170); Iron Binding Capacity, Total 281 mcg/dL (265-497)
--- NOTE | 2017-11-22 15:38 | PQF ---
CECILLE SAVAGE RICHA MD [id number] CLINICAL DOCUMENTATION IMPROVEMENT CLARIFICATION FORM: ICD-10 Updated PLEASE DO AN ADDENDUM TO THE PROGRESS NOTE WITH ANY DOCUMENTATION UPDATES OR ADDITIONS AND CARRY THROUGH TO DC SUMMARY. THANK YOU. DATE: 11-22-17 ATTN: DR. ZHENG Please exercise your independent, professional judgment in responding to the clarification form. Clinical indicators are provided on the bottom of this form for your review Please check appropriate box(s): [ ] NSTEMI [ ] NH TYPE 2 [ X ] DEMAND ISCHEMIA [ ] Other diagnosis [ ] Unable to determine For continuity of documentation, please document condition throughout progress notes and discharge summary. Thank You. CLINICAL INDICATORS - SIGNS / SYMPTOMS / LABS H&P: NSTEMI - MOST LIKELY THIS IS A DEMAND ISCHEMIA; 4-8 TROPONIN I 0.034 CARDIO CONSULT - NOT ADDRESSED RISK FACTORS H&P: UNCONTROLLED HTN ACUTE HYPOXIC RESP FAILURE ACUTE DIASTOLIC CHF ANEMIC TREATMENTS CARDIO CONSULT MAR: ASPIRIN THANK YOU, RENÉE (This form is maintained as a part of the permanent medical record) 2014 [employer]. All Rights Reserved Renée Lazaro RN, BS [email or web address] Cell [facility]
[2017-11-22] MEDS ORDERED: Labetalol HCl 100 MG/20 ML VIAL SLOW IVP PRN (16:20)
[2017-11-22] MEDS ORDERED: hydrALAZINE 20 MG/ML VIAL SLOW IVP PRN (16:21)
[2017-11-22] MEDS: Vancomycin HCl 1.25 GM in Sodium Chloride 0.9% 250 ML 250 ML IVPB SCH (16:38)
[2017-11-22] MEDS ORDERED: predniSONE 20 MG TAB PO SCH (17:00)
--- NOTE | 2017-11-22 17:44 | PRG ---
DATE OF SERVICE: 11/22/2017 SERVICE: Pulmonary Medicine. INTERVAL HISTORY: Patient is doing poorly from a respiratory standpoint. She is having a difficult time weaning from any oxygen. She has shortness of breath with a little bit of activity. She is requiring 50% ventimask. PHYSICAL EXAMINATION: VITAL SIGNS: Afebrile, pulse 79, blood pressure 140/63, respirations 29, saturation 90% on 50% ventimask. HEENT: Normocephalic, atraumatic. Sclerae are white. Conjunctivae pink. Oral and nasal mucosa is moist without lesions. LUNGS: Extensive crackles are present. There is no prolonged expiratory phase or wheezing. HEART: Normal rate, regular. ABDOMEN: Soft, nontender, nondistended. Bowel sounds are positive. MUSCULOSKELETAL: No cyanosis or clubbing. There is no pitting in the bilateral lower extremities. NEUROLOGIC: Grossly nonfocal. LABORATORY DATA: Hemoglobin 8.2, platelets 423,000. Creatinine 0.80. Basic metabolic profile is otherwise unremarkable. Iron is 23, TIBC 281, percent saturation 8%. Urinalysis was previously unremarkable. IMAGING: CT of the chest demonstrates no evidence of a pulmonary embolism. There is, however, extensive ground-glass opacifications throughout bilateral lung yu, interstitial fullness, patulous esophagus is present. There is large dilation of the right atrium and right ventricle. The left atrium is also massively dilated. ASSESSMENT: 1. Acute hypoxic respiratory failure. 2. 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 3. Severe mitral regurgitation. 4. Acute blood loss anemia with unidentified source. 5. Deep vein thrombosis without pulmonary embolism. 6. Pulmonary infiltrate, severe, characterized by extensive ground-glass opacifications and interstitial edema. DISCUSSION AND PLAN: In order to get more data moving forward, based on these lung changes, we would likely need to pursue a bronchoscopy. That being said, I do not think I would be able to liberate the patient from mechanical ventilation if we went forward with this. She has subtle appearances of crazy paving. Differential is wide, but based on the presentation and likely inciting event, it is most likely secondary to an aspirated-related event resulting in acute interstitial pneumonitis. I will initiate some steroids and we will try to keep her on the dry side of normal. Agree with interrupting the amiodarone at this time, although it is unlikely that this is our culprit. Antibiotics have been initiated, but I really do not think we are dealing with a an infectious process. If anything, it is an atypical infection or viral inflammatory changes. I will send off a respiratory virus panel. Additionally , we will do what we can to have excellent blood pressure control. The 150s are likely little too high for her and can result in significant backflow through the mitral valve, creating a pulmonary edema, which is the most likely thing that we are seeing here. NORMAN
[2017-11-22] MEDS ORDERED: Mometasone/Formoterol 120 PUFF INHALER INH SCH (18:30)
[2017-11-22] MEDS: Apixaban 5 MG TAB PO SCH (20:53)
[2017-11-22] MEDS: guaiFENesin ER 600 MG TAB PO SCH (20:54)
[2017-11-22] MEDS: Simvastatin 40 MG TAB PO SCH (20:54)
[2017-11-22] MEDS: Ezetimibe 10 MG TAB PO SCH (20:54)
[2017-11-23 06:01] LABS: Anion Gap 13 mmol/L (10-20); BUN (Urea Nitrogen) 33 mg/dL (9.8-20.1); Calc. Creatinine Clearance 55 mL/min (70-130); Calcium 8.9 mg/dL (7.8-10.44); Carbon Dioxide 32 mmol/L (23-31); Chloride 95 mmol/L (98-107); Estimated GFR-MDRD 63; Glucose 161 mg/dL (83-110); Potassium 4.1 mmol/L (3.5-5.1); Sodium 136 mmol/L (136-145)
[2017-11-23] MEDS: Cefepime 2 GM, Syringe 2.5 ML in Sodium Chloride 0.9% 10 ML SLOW IVP SCH ×2 (06:01→16:54)
[2017-11-23] MEDS: Furosemide 40 MG/4 ML VIAL SLOW IVP SCH (06:01)
[2017-11-23] MEDS ORDERED: Non-Formulary Item 1 EACH (Cholecalciferol (Vitamin D3) [Vitamin D] 5,000 UNITS) PO SCH (09:00)
[2017-11-23] MEDS ORDERED: FLUTICASONE FUROATE SCH (09:00)
[2017-11-23] MEDS ORDERED: Fluticasone Propionate Nasal Spray 16 gm Bottle NASAL SCH (09:00)
[2017-11-23] MEDS ORDERED: IRON SUCROSE COMPLEX 100 MG/5 ML SLOW IVP SCH (09:15)
[2017-11-23] MEDS ORDERED: Iron, Sodium Ferric Gluconate 250 MG in Sodium Chloride 0.9% 250 ML 250 ML IVPB SCH (09:30)
[2017-11-23] MEDS: Digoxin 0.125 MG TAB PO SCH (10:08)
[2017-11-23] MEDS: Famotidine 20 MG TAB PO SCH ×2 (10:09→20:18)
[2017-11-23] MEDS: Lisinopril 20 MG TAB PO SCH ×2 (10:09→20:19)
[2017-11-23] MEDS: guaiFENesin ER 600 MG TAB PO SCH ×2 (10:10→20:17)
[2017-11-23] MEDS: Carvedilol 6.25 MG TAB PO SCH ×2 (10:10→20:19)
[2017-11-23] MEDS: Apixaban 5 MG TAB PO SCH ×2 (10:10→20:17)
[2017-11-23] MEDS: Spironolactone 25 MG TAB PO SCH (10:10)
[2017-11-23] MEDS: Aspirin 81 mg Enteric Coated Tablet PO SCH (10:10)
[2017-11-23] MEDS: hydrALAZINE 25 MG TAB PO SCH ×3 (10:11→20:20)
[2017-11-23] MEDS: predniSONE 20 MG TAB PO SCH (10:11)
[2017-11-23] MEDS: Fluticasone Propionate Nasal Spray 16 gm Bottle NASAL SCH (10:11)
[2017-11-23 14:12] LABS: ANA Symphony (Qualitative) Negative (Negative)
--- NOTE | 2017-11-23 14:24 | PDOC.PN ---
- Subjective Encounter Start Date: 11/23/17 Encounter Start Time: 14:22 Subjective: remains on Venti mask,o2 sats dropped everytime she sits up - Objective Resuscitation Status: Resuscitation Status DNR:Do Not Resuscitate MAR Reviewed: Yes Vital Signs & Weight: Vital Signs (12 hours) Temp Pulse Resp BP BP Pulse Ox 11/23/17 13:15 86 28 H 11/23/17 12:01 97 11/23/17 11:42 97.8 F 86 30 H 92 L 11/23/17 11:29 91 L 11/23/17 11:20 97.8 F 86 30 H 156/51 H 92 L 11/23/17 10:11 84 11/23/17 10:10 153/63 H 11/23/17 10:09 156/63 H 11/23/17 10:08 84 11/23/17 09:15 97.0 F L 84 29 H 90 L 11/23/17 07:10 97.0 F L 84 29 H 133/63 90 L 11/23/17 06:24 95 11/23/17 06:22 85 24 H 95 11/23/17 04:00 97.4 F L 83 20 135/62 97 11/23/17 03:22 94 L Weight Weight 155 lb 11.2 oz Most Recent Monitor Data Heart Rate from ECG 90 NIBP 157/66 NIBP BP-Mean 108 Respiration from ECG 23 SpO2 91 I&O: 11/22/17 11/23/17 11/24/17 06:59 06:59 06:59 Intake Total 274 700 Output Total 2150 1300 Balance -1876 -600 Result Diagrams: 11/24/17 03:55 11/25/17 03:43 Additional Labs: Accuchecks 11/23/17 11/22/17 11/22/17 11:44 20:17 16:23 POC Glucose 137 H 141 H 112 H Phys Exam - Physical Examination Constitutional: NAD pale,weak looking HEENT: PERRLA, moist MMs, sclera anicteric, oral pharynx no lesions Neck: no JVD Respiratory: no wheezing, no rales, no rhonchi, clear to auscultation bilateral Cardiovascular: irregular systolic murmur Gastrointestinal: soft, non-tender, no distention, positive bowel sounds Musculoskeletal: pulses present, edema present Neurological: non-focal, normal sensation, moves all 4 limbs Psychiatric: normal affect, A&O x 3 Skin: no rash Dx/Plan (1) Acute respiratory failure with hypoxia Code(s): J96.01 - ACUTE RESPIRATORY FAILURE WITH HYPOXIA Status: Acute Comment: Initially managed with BiPAP now on VM at 15L/min, wean as clinically indicated, likely multifactorial resp failure.PE ruled out.? Amiodarone toxicity Vs Flash Pulmonary edema Vs infection. 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 Code(s): I82.533 - CHRONIC EMBOLISM AND THROMBOSIS OF POPLITEAL VEIN, BILATERAL Status: Acute Comment: Patient has Bilateral DVT with ruled out PE,will need fdc anticoagulation given DVT's and chronic a-fib (4) Anemia Code(s): D64.9 - ANEMIA, UNSPECIFIED Status: Chronic (5) Afib Code(s): I48.91 - UNSPECIFIED ATRIAL FIBRILLATION Status: Chronic Qualifiers: Atrial fibrillation type: chronic Qualified Code(s): I48.2 - Chronic atrial fibrillation Comment: Rate controlled currently,Coreg and Digoxin, s/p recent partial ablation that was terminated after flash pulm edema.Amiodarone stopped by cardiology for concerns for pulmonary toxicity (6) CAD (coronary artery disease) Code(s): I25.10 - ATHSCL HEART DISEASE OF [place] CORONARY ARTERY W/O ANG PCTRS Status: Chronic Qualifiers: Coronary Disease-Associated Artery/Lesion type: [place] artery [place] vs. transplanted heart: [place] heart (7) Cardiomyopathy Code(s): I42.9 - CARDIOMYOPATHY, UNSPECIFIED Status: Chronic Qualifiers: Cardiomyopathy type: ischemic Qualified Code(s): I25.5 - Ischemic cardiomyopathy Comment: ef of 25-30%.on ASA,BB,KADE-I,Aldactone,Digoxin (8) DM type 2 (diabetes mellitus, type 2) Status: Chronic Qualifiers: Diabetes mellitus chcf insulin use: without chcf use Diabetes mellitus complication status: with unspecified complications Qualified Code(s) : E11.8 - Type 2 diabetes mellitus with unspecified complications Comment: Continue on SSI, Hold metormnin. (9) HTN (hypertension) Code(s): I10 - ESSENTIAL (PRIMARY) HYPERTENSION Status: Chronic Qualifiers: Hypertension type: essential hypertension Qualified Code(s): I10 - Essential (primary) hypertension Comment: Continue on Lisinopril, Spironolactone, BB. (10) Recent GI bleed with Normal Endoscopy Status: Acute Comment: GI cleared to restart Anticoagulation (11) Severe mitral regurgitation Code(s): I34.0 - NONRHEUMATIC MITRAL (VALVE) INSUFFICIENCY Status: Chronic - Plan continue antibiotics, PT/OT, respiratory therapy, incentive spirometry, out of bed/ambulate, DVT proph w/SCDs DIONNA-will give IV Iron.monitor H/H -: Discussed w Dr. Reddy.suspect Flash Pulm edema w High BP. -: willl increase Hydralazine to 50 TID.BB,KADE-I increased yesterday. -: will move to IMCU.cont prednisone.Empiric ABx -: Poor prognosis.am labs.cont meds as below * . Review of Systems - Review of Systems Constitutional: weakness, malaise Eyes: negative: Pain, Vision Change, Conjunctivae Inflammation, Eyelid Inflammation, Redness, Other Respiratory: Shortness of Breath, SOB with Excertion. negative: Cough, Dry, Hemoptysis, Pleuritic Pain, Sputum, Wheezing Cardiovascular: edema. negative: chest pain, palpitations, paroxysmal nocturnal dyspnea, light headedness, other Gastrointestinal: negative: Nausea, Vomiting, Abdominal Pain, Diarrhea, Constipation, Melena, Hematochezia, Other Genitourinary: negative: Dysuria, Frequency, Incontinence, Hematuria, Retention , Other Musculoskeletal: negative: Neck Pain, Shoulder Pain, Arm Pain, Back Pain, Hand Pain, Leg Pain, Foot Pain, Other Skin: negative: Rash, Lesions, Girish, Bruising, Other Neurological: negative: Weakness, Numbness, Incoordination, Change in Speech, Confusion, Seizures, Other - Medications/Allergies Allergies/Adverse Reactions: Allergies Allergy/AdvReac Type Severity Reaction Status Date / Time No Known Allergies Allergy Verified 12/01/14 17:16 Medications: Current Medications Hydrocodone Bitart/Acetaminophen ([place] 5/325) 1 tab PO Q4H PRN PRN Reason: Moderate Pain (4-6) Hydrocodone Bitart/Acetaminophen ([place] 7.5/325) 1 tab PO Q4H PRN PRN Reason: Severe Pain (7-10) Last Admin: 11/19/17 20:54 Dose: 1 tab Albuterol/Ipratropium (Duoneb) 3 ml NEB T4MR-RT [facility] Last Admin: 11/23/17 13:15 Dose: 3 ml Apixaban (Eliquis) 5 mg PO BID [facility] Last Admin: 11/23/17 10:10 Dose: 5 mg Aspirin (Ecotrin) 81 mg PO DAILY [facility] Last Admin: 11/23/17 10:10 Dose: 81 mg Carvedilol (Coreg) 12.5 mg PO BID [facility] Last Admin: 11/23/17 10:10 Dose: 12.5 mg Cholecalciferol (Vitamin D3) 5,000 units PO DAILY [facility] Last Admin: 11/23/17 10:07 Dose: 5,000 units Digoxin (Lanoxin) 0.125 mg PO DAILY [facility] Last Admin: 11/23/17 10:08 Dose: 0.125 mg Ezetimibe (Zetia) 10 mg PO HS [facility] Last Admin: 11/22/17 20:54 Dose: 10 mg Famotidine (Pepcid) 20 mg PO BID [facility] Last Admin: 11/23/17 10:09 Dose: 20 mg Fluticasone Propionate (Flonase Nasal [place]) 0 gm NASAL DAILY [facility] Last Admin: 11/23/17 10:11 Dose: Not Given Furosemide (Lasix) 40 mg SLOW IVP 0600 [facility] Last Admin: 11/23/17 06:01 Dose: 40 mg Guaifenesin (Mucinex) 1,200 mg PO Q12HR [facility] Last Admin: 11/23/17 10:10 Dose: 1,200 mg Hydralazine HCl (Apresoline) 20 mg SLOW IVP Q2H PRN PRN Reason: Sbp Greater Than 140 Hydralazine HCl (Apresoline) 50 mg PO BID [facility] Cefepime HCl 2 gm/ Syringe 2.5 (ml/ Sodium Chloride) 12.5 mls @ 150 mls/hr SLOW IVP 0500,1700 [facility] Last Admin: 11/23/17 06:01 Dose: 12.5 mls Vancomycin HCl 1.25 gm/ Sodium (Chloride) 250 mls @ 166.667 mls/hr IVPB 1700 [facility] Last Admin: 11/22/17 16:38 Dose: 250 mls Labetalol HCl (Normodyne) 20 mg SLOW IVP Q2H PRN PRN Reason: Sbp Greater Than 140 Lisinopril (Zestril) 20 mg PO BID [facility] Last Admin: 11/23/17 10:09 Dose: 20 mg Mineral Oil/White Petrolatum (Lacri-Lube Ointment) 0 gm EA EYE PRN PRN PRN Reason: Dry Eyes Miscellaneous Medication (Pharmacy To Dose) 1 each IVPB PRN PRN PRN Reason: . Ondansetron HCl (Zofran Odt) 4 mg PO Q6H PRN PRN Reason: Nausea/Vomiting Last Admin: 11/20/17 06:20 Dose: 4 mg Prednisone (Prednisone) 40 mg PO QAM[facility] Last Admin: 11/23/17 10:11 Dose: 40 mg Sertraline HCl (Zoloft) 25 mg PO DAILY [facility] Last Admin: 11/23/17 10:09 Dose: 25 mg Simvastatin (Zocor) 40 mg PO HS [facility] Last Admin: 11/22/17 20:54 Dose: 40 mg Sodium Chloride (Flush - Normal Saline) 10 ml IVF Q12HR [facility] Last Admin: 11/23/17 10:12 Dose: 10 ml Sodium Chloride (Flush - Normal Saline) 10 ml IVF PRN PRN PRN Reason: Saline Flush Last Admin: 11/23/17 06:02 Dose: 10 ml Spironolactone (Aldactone) 12.5 mg PO DAILY [facility] Last Admin: 11/23/17 10:10 Dose: 12.5 mg
[2017-11-23 16:27] LABS: Vancomycin, Trough 14.2 ug/mL
[2017-11-23] MEDS: Vancomycin HCl 1.25 GM in Sodium Chloride 0.9% 250 ML 250 ML IVPB SCH (16:54)
--- NOTE | 2017-11-23 18:39 | PRG ---
DATE OF SERVICE: 11/23/2017 SERVICE: Pulmonary Medicine. INTERVAL HISTORY: The patient actually did fairly well overnight. Oxygen requirements improved a li ttle bit. This morning, she was satting 98% on 50% Ventimask. As such, I sat her up on the side of the bed. In doing so, her blood pressure shot up to the 180s. She then became increasingly hypoxemi c. She felt uncomfortable and we laid her back down. She recovered very slowly. Blood pressure was controlled with p.r.n. medication. Additional attempts of this will be made at some point in the fu ture. Either way, because of the changes that we saw, we will need to move her to the [facility] to intens dagoberto or blood pressure monitoring. Otherwise, there were no significant events overnight. PHYSICAL EXAMINATION: VITAL SIGNS: Afebrile, pulse 90, blood pressure 138/64, respirations 33, saturation 94% on Ventimask at 50% FiO2. HEENT: Normocephalic, atraumatic. Sclerae are white, conjunctivae pink. Oral and nasal mucosa is m oist without lesions. LUNGS: Decent air entry. Extensive crackling is present throughout bilateral lung yu. No prolo nged expiratory phase is evident. HEART: Normal rate, regular. ABDOMEN: Soft, nontender, nondistended. Bowel sounds are positive. MUSCULOSKELETAL: No cyanosis or clubbing. There is no pitting in the bilateral lower extremities. NEUROLOGIC: Grossly nonfocal. LABORATORY DATA: Creatinine 0.86, bicarbonate 32. Basic metabolic profile is otherwise unremarkable . Urinalysis is negative. SHARMILA screen is positive, it is in anti-double stranded pattern. Blood cul tures x2 and influenza are unremarkable. ASSESSMENT: 1. Acute hypoxic respiratory failure. 2. 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 3. Severe mitral regurgitation. 4. Deep venous thrombosis without pulmonary embolism. 5. Pulmonary infiltrate, characterized by extensive ground glass opacifications with interstitial ed les (crazy paving). 6. Abnormal SHARMILA. DISCUSSION AND PLAN: We will continue our steroids and nebulized medications. We need strict blood pressure control moving forward. I am not certain what to make of this abnormal SHARMILA. It could be a red cage at this point. That being said, the steroids should address any inflammatory issues. We will continue to focus on aggressive blood pressure control. We will try to keep her systolic blood pressure less than 140. Pulmonary Critical Care will continue to follow very closely.
[2017-11-23] MEDS: Ezetimibe 10 MG TAB PO SCH (20:17)
[2017-11-23] MEDS: Simvastatin 40 MG TAB PO SCH (20:19)
[2017-11-23] MEDS ORDERED: hydrALAZINE 25 MG TAB PO SCH (21:00)
[2017-11-24 04:38] LABS: #Basophils 0.1 thou/uL (0.0-0.2); #Lymphocytes 1.1 thou/uL (1.20-3.40); #Monocytes 0.8 thou/uL (0.11-0.59); #Neutrophils 7.2 thou/uL (1.40-6.50); %Basophils 0.7 % (0.0-1.0); %Eosinophils 0.1 % (0.0-10.0); %Lymphocytes 12.2 % (21.0-51.0); %Monocytes 8.5 % (0.0-10.0); %Neutrophils 78.4 % (42.0-75.0); Hemoglobin 7.9 g/dL (12.0-16.0); Mean Corpuscular HGB CONC 31.8 g/dL (32.0-36.0); Mean Corpuscular Hemoglobin 29.3 pg (27.0-31.0); Mean Platelet Volume 6.9 fL (7.4-10.4); Platelet Count 397 thou/uL (130-400); RBC Distribution Width 16.1 % (11.5-14.5); Red Blood Cell (RBC) Count 2.71 mill/uL (4.20-5.40); White Blood Cell (WBC) Count 9.2 thou/uL (4.8-10.8)
[2017-11-24 04:56] LABS: Anion Gap 14 mmol/L (10-20); BUN (Urea Nitrogen) 54 mg/dL (9.8-20.1); Calc. Creatinine Clearance 41 mL/min (70-130); Carbon Dioxide 29 mmol/L (23-31); Chloride 97 mmol/L (98-107); Estimated GFR-MDRD 45; Glucose 136 mg/dL (83-110); Magnesium 1.9 mg/dL (1.6-2.6); Phosphorus 4.5 mg/dL (2.3-4.7); Potassium 3.9 mmol/L (3.5-5.1); Sodium 136 mmol/L (136-145)
[2017-11-24] MEDS: Cefepime 2 GM, Syringe 2.5 ML in Sodium Chloride 0.9% 10 ML SLOW IVP SCH (05:36)
[2017-11-24] MEDS: Furosemide 40 MG/4 ML VIAL SLOW IVP SCH (05:37)
[2017-11-24] MEDS: predniSONE 20 MG TAB PO SCH (08:57)
[2017-11-24] MEDS: Apixaban 5 MG TAB PO SCH ×2 (08:57→20:40)
[2017-11-24] MEDS: Carvedilol 6.25 MG TAB PO SCH ×2 (08:57→20:41)
[2017-11-24] MEDS: guaiFENesin ER 600 MG TAB PO SCH ×2 (08:57→20:40)
[2017-11-24] MEDS: hydrALAZINE 25 MG TAB PO SCH ×3 (08:58→20:41)
[2017-11-24] MEDS: Digoxin 0.125 MG TAB PO SCH (08:58)
[2017-11-24] MEDS: Spironolactone 25 MG TAB PO SCH (08:58)
[2017-11-24] MEDS: Lisinopril 20 MG TAB PO SCH ×2 (08:58→20:42)
[2017-11-24] MEDS: Aspirin 81 mg Enteric Coated Tablet PO SCH (08:58)
[2017-11-24] MEDS: Famotidine 20 MG TAB PO SCH ×2 (08:58→20:41)
[2017-11-24] MEDS: Fluticasone Propionate Nasal Spray 16 gm Bottle NASAL SCH (10:43)
--- NOTE | 2017-11-24 11:42 | PDOC.CTH ---
Cardiology Progress Note - Subjective She is very Short winded. She is not able to say more than 2 words without having to catch her breath. - Objective Vital Signs Temp Pulse Resp BP BP Pulse Ox 11/24/17 08:58 80 128/43 L 11/24/17 08:57 128/43 L 11/24/17 08:20 80 24 H 95 11/24/17 08:00 98.1 F 80 24 H 96 11/24/17 07:00 98.1 F 78 28 H 120/35 L 98 11/24/17 03:00 97.1 F L 86 21 H 115/49 L 96 Weight 160 lb 4 oz 11/23/17 11/24/17 11/25/17 06:59 06:59 06:59 Intake Total 700 620 Output Total 1300 400 Balance -600 220 - Physical Examination General/Neuro: alert & oriented x3 Neck: no JVD present Lungs: other: (Coarse anteriorly) Heart: other: (irreg) Abdomen: NT/ND Extremities: + edema B (1+) - Telemetry Telemetry Rhythm: Afib HR 80's . - Labs Result Diagrams: 11/24/17 03:55 11/24/17 03:55 Troponin/CKMB CK-MB (CK-2) 0.8 ng/mL (0-6.6) 11/18/17 16:18 Troponin I 0.034 ng/mL (< 0.028) H 11/18/17 16:18 - Assessment/Plan 1. Acute hypoxic respiratory failure- likely 2/2 # 2. Cont supplemental O2. see 2 2. LLE DVT- suspect likely PE. On Eliquis. 3. Chronic a-fib- rate controlled now 4. Recent blood loss anemia 5. Severe LV dysfunction EF at 30-35% 6. Severe MR PLAN: - Will give one dose IV lasix. - Continue other meds.
[2017-11-24] MEDS ORDERED: Furosemide 40 MG/4 ML VIAL SLOW IVP SCH (12:00)
--- NOTE | 2017-11-24 12:46 | PDOC.PN ---
- Subjective Encounter Start Date: 11/24/17 Encounter Start Time: 12:44 Subjective: feels worse,unable to wean off of Venti -: care discussed w Son at bedside - Objective Resuscitation Status: Resuscitation Status DNR:Do Not Resuscitate MAR Reviewed: Yes Vital Signs & Weight: Vital Signs (12 hours) Temp Pulse Resp BP BP Pulse Ox 11/24/17 12:31 77 34 H 100 11/24/17 12:22 72 34 H 93 L 11/24/17 08:58 80 128/43 L 11/24/17 08:57 128/43 L 11/24/17 08:20 80 24 H 95 11/24/17 08:00 98.1 F 80 24 H 96 11/24/17 07:00 98.1 F 78 28 H 120/35 L 98 11/24/17 03:00 97.1 F L 86 21 H 115/49 L 96 Weight Weight 160 lb 4 oz Most Recent Monitor Data Heart Rate from ECG 90 NIBP 157/66 NIBP BP-Mean 108 Respiration from ECG 23 SpO2 91 I&O: 11/23/17 11/24/17 11/25/17 06:59 06:59 06:59 Intake Total 700 620 Output Total 1300 400 Balance -600 220 Result Diagrams: 11/24/17 03:55 11/25/17 03:43 Additional Labs: Accuchecks 11/24/17 11/24/17 11/23/17 10:45 05:41 19:57 POC Glucose 216 H 153 H 162 H 11/23/17 16:27 POC Glucose 167 H Microbiology 11/22/17 18:50 Nasopharyngeal swab Respiratory Panel (PCR) - Final 11/18/17 17:14 Venous blood - Right Arm Blood Culture - Final NO GROWTH IN 5 DAYS 11/18/17 17:08 Nasal swab Influenza Types A,B Direct EIA - Final 11/18/17 16:19 Venous blood - Right Arm Blood Culture - Final NO GROWTH IN 5 DAYS Laboratory Tests 11/18/17 11/19/17 11/21/17 16:18 04:13 05:42 Creatinine 1.09 0.92 0.83 11/22/17 11/23/17 11/24/17 07:34 03:58 03:55 Creatinine 0.80 0.86 1.14 H Phys Exam - Physical Examination weak,tired and unable to talk due to SOB HEENT: PERRLA, moist MMs, sclera anicteric, oral pharynx no lesions Neck: no nodes, no JVD, full ROM Respiratory: no wheezing, no rales, no rhonchi, clear to auscultation bilateral coarse at bases Cardiovascular: irregular systolic murmur Gastrointestinal: soft, non-tender, no distention, positive bowel sounds Musculoskeletal: no edema, pulses present Neurological: non-focal, normal sensation, moves all 4 limbs Psychiatric: normal affect, A&O x 3 Skin: no rash Dx/Plan (1) Acute respiratory failure with hypoxia Code(s): J96.01 - ACUTE RESPIRATORY FAILURE WITH HYPOXIA Status: Acute Comment: Initially managed with BiPAP now on VM at 15L/min, wean as clinically indicated, likely multifactorial resp failure.PE ruled out.? Amiodarone toxicity Vs Flash Pulmonary edema Vs infection. 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 Code(s): I82.533 - CHRONIC EMBOLISM AND THROMBOSIS OF POPLITEAL VEIN, BILATERAL Status: Acute Comment: Patient has Bilateral DVT with ruled out PE,will need long term anticoagulation given DVT's and chronic a-fib (4) Anemia Code(s): D64.9 - ANEMIA, UNSPECIFIED Status: Chronic (5) Afib Code(s): I48.91 - UNSPECIFIED ATRIAL FIBRILLATION Status: Chronic Qualifiers: Atrial fibrillation type: chronic Qualified Code(s): I48.2 - Chronic atrial fibrillation Comment: Rate controlled currently,Coreg and Digoxin, s/p recent partial ablation that was terminated after flash pulm edema.Amiodarone stopped by cardiology for concerns for pulmonary toxicity (6) CAD (coronary artery disease) Code(s): I25.10 - ATHSCL HEART DISEASE OF [place] CORONARY ARTERY W/O ANG PCTRS Status: Chronic Qualifiers: Coronary Disease-Associated Artery/Lesion type: [place] artery [place] vs. transplanted heart: [place] heart (7) Cardiomyopathy Code(s): I42.9 - CARDIOMYOPATHY, UNSPECIFIED Status: Chronic Qualifiers: Cardiomyopathy type: ischemic Qualified Code(s): I25.5 - Ischemic cardiomyopathy Comment: ef of 25-30%.on ASA,BB,KADE-I,Aldactone,Digoxin (8) DM type 2 (diabetes mellitus, type 2) Status: Chronic Qualifiers: Diabetes mellitus termite exterminator insulin use: without termite exterminator use Diabetes mellitus complication status: with unspecified complications Qualified Code(s) : E11.8 - Type 2 diabetes mellitus with unspecified complications Comment: Continue on SSI, Hold metormnin. (9) HTN (hypertension) Code(s): I10 - ESSENTIAL (PRIMARY) HYPERTENSION Status: Chronic Qualifiers: Hypertension type: essential hypertension Qualified Code(s): I10 - Essential (primary) hypertension Comment: Continue on Lisinopril, Spironolactone, BB. (10) Recent GI bleed with Normal Endoscopy Status: Acute Comment: GI cleared to restart Anticoagulation (11) Severe mitral regurgitation Code(s): I34.0 - NONRHEUMATIC MITRAL (VALVE) INSUFFICIENCY Status: Chronic - Plan plan discussed w/ family, continue antibiotics, respiratory therapy, incentive spirometry, DVT proph w/SCDs Unable to wean off of Venti,restarted on Bipap.discussed w son-DNR confirme -: DC IV ABx as no clear infection.Will change to PO ABX -: cont lasix.Flash Pulm edema d/t HTN -: BP much better controlled today.reduce hydralazine back to 25 TID from 50mg -: Poor prognosis w severe MR.Pt & family aware. PCT following * .Cont AC for DVT/A-fib. * cont home meds as below. * am labs Review of Systems - Review of Systems Constitutional: weakness, malaise. negative: fever, chills, sweats, other Respiratory: SOB with Excertion Gastrointestinal: negative: Nausea, Vomiting, Abdominal Pain, Diarrhea, Constipation, Melena, Hematochezia, Other Genitourinary: negative: Dysuria, Frequency, Incontinence, Hematuria, Retention , Other Musculoskeletal: negative: Neck Pain, Shoulder Pain, Arm Pain, Back Pain, Hand Pain, Leg Pain, Foot Pain, Other Skin: negative: Rash, Lesions, Girish, Bruising, Other - Medications/Allergies Allergies/Adverse Reactions: Allergies Allergy/AdvReac Type Severity Reaction Status Date / Time No Known Allergies Allergy Verified 12/01/14 17:16 Medications: Current Medications Hydrocodone Bitart/Acetaminophen ([place] 5/325) 1 tab PO Q4H PRN PRN Reason: Moderate Pain (4-6) Hydrocodone Bitart/Acetaminophen ([place] 7.5/325) 1 tab PO Q4H PRN PRN Reason: Severe Pain (7-10) Last Admin: 11/19/17 20:54 Dose: 1 tab Albuterol/Ipratropium (Duoneb) 3 ml NEB [id number] [facility] Last Admin: 11/24/17 12:31 Dose: 3 ml Apixaban (Eliquis) 5 mg PO BID [facility] Last Admin: 11/24/17 08:57 Dose: 5 mg Aspirin (Ecotrin) 81 mg PO DAILY [facility] Last Admin: 11/24/17 08:58 Dose: 81 mg Carvedilol (Coreg) 12.5 mg PO BID [facility] Last Admin: 11/24/17 08:57 Dose: 12.5 mg Cholecalciferol (Vitamin D3) 5,000 units PO DAILY [facility] Last Admin: 11/24/17 08:57 Dose: 5,000 units Digoxin (Lanoxin) 0.125 mg PO DAILY [facility] Last Admin: 11/24/17 08:58 Dose: 0.125 mg Ezetimibe (Zetia) 10 mg PO HS [facility] Last Admin: 11/23/17 20:17 Dose: 10 mg Famotidine (Pepcid) 20 mg PO BID [facility] Last Admin: 11/24/17 08:58 Dose: 20 mg Fluticasone Propionate (Flonase Nasal [place]) 0 gm NASAL DAILY [facility] Last Admin: 11/24/17 10:43 Dose: Not Given Furosemide (Lasix) 40 mg PO DAILY[facility] Furosemide (Lasix) 40 mg SLOW IVP NOW [facility] Stop: 11/24/17 14:00 Last Admin: 11/24/17 12:28 Dose: 40 mg Guaifenesin (Mucinex) 1,200 mg PO Q12HR [facility] Last Admin: 11/24/17 08:57 Dose: 1,200 mg Hydralazine HCl (Apresoline) 20 mg SLOW IVP Q2H PRN PRN Reason: Sbp Greater Than 140 Last Admin: 11/23/17 15:58 Dose: 20 mg Hydralazine HCl (Apresoline) 25 mg PO TID [facility] Last Admin: 11/24/17 08:58 Dose: 25 mg Cefepime HCl 2 gm/ Syringe 2.5 (ml/ Sodium Chloride) 12.5 mls @ 150 mls/hr SLOW IVP 0500,1700 [facility] Last Admin: 11/24/17 05:36 Dose: 12.5 mls Vancomycin HCl 1.25 gm/ Sodium (Chloride) 250 mls @ 166.667 mls/hr IVPB 1700 [facility] Last Admin: 11/23/17 16:54 Dose: 250 mls Labetalol HCl (Normodyne) 20 mg SLOW IVP Q2H PRN PRN Reason: Sbp Greater Than 140 Lisinopril (Zestril) 20 mg PO BID [facility] Last Admin: 11/24/17 08:58 Dose: 20 mg Mineral Oil/White Petrolatum (Lacri-Lube Ointment) 0 gm EA EYE PRN PRN PRN Reason: Dry Eyes Miscellaneous Medication (Pharmacy To Dose) 1 each IVPB PRN PRN PRN Reason: . Morphine Sulfate (Morphine) 2 mg SLOW IVP Q1H PRN PRN Reason: Pain Ondansetron HCl (Zofran Odt) 4 mg PO Q6H PRN PRN Reason: Nausea/Vomiting Last Admin: 11/20/17 06:20 Dose: 4 mg Prednisone (Prednisone) 40 mg PO QA[facility] Last Admin: 11/24/17 08:57 Dose: 40 mg Sertraline HCl (Zoloft) 25 mg PO DAILY [facility] Last Admin: 11/24/17 08:57 Dose: 25 mg Simvastatin (Zocor) 40 mg PO HS [facility] Last Admin: 11/23/17 20:19 Dose: 40 mg Sodium Chloride (Flush - Normal Saline) 10 ml IVF Q12HR [facility] Last Admin: 11/24/17 08:59 Dose: 10 ml Sodium Chloride (Flush - Normal Saline) 10 ml IVF PRN PRN PRN Reason: Saline Flush Last Admin: 11/23/17 06:02 Dose: 10 ml Spironolactone (Aldactone) 12.5 mg PO DAILY [facility] Last Admin: 11/24/17 08:58 Dose: 12.5 mg
--- NOTE | 2017-11-24 20:28 | PRG ---
DATE OF SERVICE: 11/24/2017 SUBJECTIVE: Inga Deng was evaluated with her son in the room. OBJECTIVE: VITAL SIGNS: She is afebrile, heart rates in the 70s, respiratory rates in the high 20s. I did sugg est trying her on BiPAP for a little while, but if she did not tolerate this, I have told her son I w ould be open to the idea of removing and keeping her comfortable. Blood pressure 132/60. LUNGS: Remarkable for crackles bilaterally. CARDIOVASCULAR: Regular rhythm. She has grade 3/6 systolic murmur. ABDOMEN: Soft and nontender. EXTREMITIES: Without asymmetry. LABORATORY DATA: White count 9.2, hemoglobin 7.9, platelets 397. Sodium 136, potassium 3.9, chlorid e 97, bicarbonate 29, BUN 54, creatinine 1.14. IMPRESSION AND PLAN: 1. Acute on chronic respiratory failure. 2. Congestive heart failure, systolic, combined with severe mitral regurgitation. 3. Deep venous thrombosis on anticoagulation. 4. Diffusely abnormal chest CT, which could easily be alveolar hemorrhage associated with her mitral regurgitation. As I have explained to her son, they are very few options, the sas developer explain this as well. He is inclined to want to keep her comfortable and if we can get her out of the hospital, not bring her back. I would support this decision. She will be transferred out of intermediate care. The decisi on to make her a do not resuscitate patient has already been made, comfort care will likely be the pr imary approach here forward. If she continues to be short of breath, in spite of daily aggressive ca re by Cardiology. It would not be unreasonable to consider inpatient hospice.
[2017-11-24] MEDS: Ezetimibe 10 MG TAB PO SCH (20:40)
[2017-11-24] MEDS: Cefdinir 300 MG CAP PO SCH (20:41)
[2017-11-24] MEDS: Simvastatin 40 MG TAB PO SCH (20:41)
[2017-11-25 05:19] LABS: Anion Gap 8 mmol/L (10-20); BUN (Urea Nitrogen) 72 mg/dL (9.8-20.1); Calc. Creatinine Clearance 32 mL/min (70-130); Carbon Dioxide 36 mmol/L (23-31); Chloride 96 mmol/L (98-107); Estimated GFR-MDRD 33; Glucose 137 mg/dL (83-110); Potassium 4.2 mmol/L (3.5-5.1); Sodium 136 mmol/L (136-145)
[2017-11-25] MEDS: Apixaban 5 MG TAB PO SCH ×2 (08:48→20:10)
[2017-11-25] MEDS: Digoxin 0.125 MG TAB PO SCH (08:48)
[2017-11-25] MEDS: hydrALAZINE 25 MG TAB PO SCH ×3 (08:49→20:27)
[2017-11-25] MEDS: Furosemide 40 MG TAB PO SCH (08:49)
[2017-11-25] MEDS: Cefdinir 300 MG CAP PO SCH ×2 (08:49→20:27)
[2017-11-25] MEDS: guaiFENesin ER 600 MG TAB PO SCH ×2 (08:49→20:27)
[2017-11-25] MEDS: Spironolactone 25 MG TAB PO SCH (08:50)
[2017-11-25] MEDS: Lisinopril 20 MG TAB PO SCH ×2 (08:50→20:10)
[2017-11-25] MEDS: predniSONE 20 MG TAB PO SCH (08:50)
[2017-11-25] MEDS: Aspirin 81 mg Enteric Coated Tablet PO SCH (08:51)
[2017-11-25] MEDS: Carvedilol 6.25 MG TAB PO SCH ×2 (08:51→20:26)
[2017-11-25] MEDS: Famotidine 20 MG TAB PO SCH ×2 (08:51→20:27)
[2017-11-25] MEDS: Fluticasone Propionate Nasal Spray 16 gm Bottle NASAL SCH (08:52)
--- NOTE | 2017-11-25 11:46 | PDOC.PN ---
- Subjective Encounter Start Date: 11/25/17 Encounter Start Time: 11:44 Subjective: no chnage,remains on Venti mask. -: did not tolerate Bipap.transfered out of [facility] -: discussed care w son & other family members - Objective Resuscitation Status: Resuscitation Status DNR:Do Not Resuscitate MAR Reviewed: Yes Vital Signs & Weight: Vital Signs (12 hours) Temp Pulse Resp BP BP Pulse Ox 11/25/17 08:51 148/72 H 11/25/17 08:50 148/72 H 11/25/17 08:49 86 148/72 H 11/25/17 08:48 86 11/25/17 08:00 98.2 F 86 22 H 96 11/25/17 07:58 98.2 F 86 22 H 148/72 H 96 11/25/17 07:04 96 11/25/17 07:01 86 20 96 11/25/17 04:00 97.7 F 78 20 126/76 94 L 11/25/17 00:00 98.1 F 84 20 131/53 L 98 Weight Weight 160 lb 4 oz Most Recent Monitor Data Heart Rate from ECG 90 NIBP 157/66 NIBP BP-Mean 108 Respiration from ECG 23 SpO2 91 I&O: 11/24/17 11/25/17 11/26/17 06:59 06:59 06:59 Intake Total 620 Output Total 400 850 Balance 220 -850 Result Diagrams: 11/24/17 03:55 11/25/17 03:43 Additional Labs: Accuchecks 11/25/17 11/24/17 04:30 16:50 POC Glucose 149 H 189 H Laboratory Tests 11/18/17 11/19/17 11/21/17 16:18 04:13 05:42 Creatinine 1.09 0.92 0.83 11/22/17 11/23/17 11/24/17 07:34 03:58 03:55 Creatinine 0.80 0.86 1.14 H 11/25/17 03:43 Creatinine 1.51 H Phys Exam - Physical Examination pale,weak,tired looking.awake and alert HEENT: sclera anicteric, oral pharynx no lesions venti mask Neck: no JVD coarse b/l Cardiovascular: irregular systolic murmur Gastrointestinal: soft, non-tender, no distention, positive bowel sounds Musculoskeletal: pulses present, edema present Neurological: moves all 4 limbs Deviation from normal: depressed affect Skin: no rash Dx/Plan (1) Acute respiratory failure with hypoxia Code(s): J96.01 - ACUTE RESPIRATORY FAILURE WITH HYPOXIA Status: Acute Comment: Initially managed with BiPAP now on VM at 15L/min, wean as clinically indicated, likely multifactorial resp failure.PE ruled out.? Amiodarone toxicity Vs Flash Pulmonary edema Vs infection. 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 Code(s): I82.533 - CHRONIC EMBOLISM AND THROMBOSIS OF POPLITEAL VEIN, BILATERAL Status: Acute Comment: Patient has Bilateral DVT with ruled out PE,will need nursing home anticoagulation given DVT's and chronic a-fib (4) Anemia Code(s): D64.9 - ANEMIA, UNSPECIFIED Status: Chronic (5) Afib Code(s): I48.91 - UNSPECIFIED ATRIAL FIBRILLATION Status: Chronic Qualifiers: Atrial fibrillation type: chronic Qualified Code(s): I48.2 - Chronic atrial fibrillation Comment: Rate controlled currently,Coreg and Digoxin, s/p recent partial ablation that was terminated after flash pulm edema.Amiodarone stopped by cardiology for concerns for pulmonary toxicity (6) CAD (coronary artery disease) Code(s): I25.10 - ATHSCL HEART DISEASE OF [place] CORONARY ARTERY W/O ANG PCTRS Status: Chronic Qualifiers: Coronary Disease-Associated Artery/Lesion type: [place] artery [place] vs. transplanted heart: [place] heart (7) Cardiomyopathy Code(s): I42.9 - CARDIOMYOPATHY, UNSPECIFIED Status: Chronic Qualifiers: Cardiomyopathy type: ischemic Qualified Code(s): I25.5 - Ischemic cardiomyopathy Comment: ef of 25-30%.on ASA,BB,KADE-I,Aldactone,Digoxin (8) DM type 2 (diabetes mellitus, type 2) Status: Chronic Qualifiers: Diabetes mellitus retirement insulin use: without termite treater helper use Diabetes mellitus complication status: with unspecified complications Qualified Code(s) : E11.8 - Type 2 diabetes mellitus with unspecified complications Comment: Continue on SSI, Hold metormnin. (9) HTN (hypertension) Code(s): I10 - ESSENTIAL (PRIMARY) HYPERTENSION Status: Chronic Qualifiers: Hypertension type: essential hypertension Qualified Code(s): I10 - Essential (primary) hypertension Comment: Continue on Lisinopril, Spironolactone, BB. (10) Recent GI bleed with Normal Endoscopy Status: Acute Comment: GI cleared to restart Anticoagulation (11) Severe mitral regurgitation Code(s): I34.0 - NONRHEUMATIC MITRAL (VALVE) INSUFFICIENCY Status: Chronic - Plan plan discussed w/ family, respiratory therapy, incentive spirometry, DVT proph w /SCDs Poor prognosis.family leaning [facility] Hospice & comfort care -: encouraged to discuss w Patient as she is AAOX3 to make decisions for herse -: cont supportive care for now. -: monitor H/H.Transfuse if <7.on anticoagulation.no active bleed -: Cr slightly high.monitor as on diuretics * . Review of Systems - Review of Systems Constitutional: weakness, malaise Respiratory: Shortness of Breath, SOB with Excertion Other: difficult to obtain due to SOB when taking off venti mask - Medications/Allergies Allergies/Adverse Reactions: Allergies Allergy/AdvReac Type Severity Reaction Status Date / Time No Known Allergies Allergy Verified 12/01/14 17:16 Medications: Current Medications Hydrocodone Bitart/Acetaminophen ([place] 5/325) 1 tab PO Q4H PRN PRN Reason: Moderate Pain (4-6) Hydrocodone Bitart/Acetaminophen ([place] 7.5/325) 1 tab PO Q4H PRN PRN Reason: Severe Pain (7-10) Last Admin: 11/19/17 20:54 Dose: 1 tab Albuterol/Ipratropium (Duoneb) 3 ml NEB [id number] [facility] Last Admin: 11/25/17 07:01 Dose: 3 ml Apixaban (Eliquis) 5 mg PO BID [facility] Last Admin: 11/25/17 08:48 Dose: 5 mg Aspirin (Ecotrin) 81 mg PO DAILY [facility] Last Admin: 11/25/17 08:51 Dose: 81 mg Carvedilol (Coreg) 12.5 mg PO BID [facility] Last Admin: 11/25/17 08:51 Dose: 12.5 mg Cefdinir (Omnicef) 300 mg PO BID [facility] Last Admin: 11/25/17 08:49 Dose: 300 mg Cholecalciferol (Vitamin D3) 5,000 units PO DAILY [facility] Last Admin: 11/25/17 08:50 Dose: 5,000 units Digoxin (Lanoxin) 0.125 mg PO DAILY [facility] Last Admin: 11/25/17 08:48 Dose: 0.125 mg Ezetimibe (Zetia) 10 mg PO HS [facility] Last Admin: 11/24/17 20:40 Dose: 10 mg Famotidine (Pepcid) 20 mg PO BID [facility] Last Admin: 11/25/17 08:51 Dose: 20 mg Fluticasone Propionate (Flonase Nasal [place]) 0 gm NASAL DAILY [facility] Last Admin: 11/25/17 08:52 Dose: Not Given Furosemide (Lasix) 40 mg PO DAILY-AC [facility] Last Admin: 11/25/17 08:49 Dose: 40 mg Guaifenesin (Mucinex) 1,200 mg PO Q12HR [facility] Last Admin: 11/25/17 08:49 Dose: 1,200 mg Hydralazine HCl (Apresoline) 20 mg SLOW IVP Q2H PRN PRN Reason: Sbp Greater Than 140 Last Admin: 11/23/17 15:58 Dose: 20 mg Hydralazine HCl (Apresoline) 25 mg PO TID [facility] Last Admin: 11/25/17 08:49 Dose: 25 mg Labetalol HCl (Normodyne) 20 mg SLOW IVP Q2H PRN PRN Reason: Sbp Greater Than 140 Lisinopril (Zestril) 20 mg PO BID [facility] Last Admin: 11/25/17 08:50 Dose: 20 mg Mineral Oil/White Petrolatum (Lacri-Lube Ointment) 0 gm EA EYE PRN PRN PRN Reason: Dry Eyes Morphine Sulfate (Morphine) 2 mg SLOW IVP Q1H PRN PRN Reason: Pain Ondansetron HCl (Zofran Odt) 4 mg PO Q6H PRN PRN Reason: Nausea/Vomiting Last Admin: 11/20/17 06:20 Dose: 4 mg Prednisone (Prednisone) 40 mg PO QAM-WM [facility] Last Admin: 11/25/17 08:50 Dose: 40 mg Sertraline HCl (Zoloft) 25 mg PO DAILY [facility] Last Admin: 11/25/17 08:51 Dose: 25 mg Simvastatin (Zocor) 40 mg PO HS [facility] Last Admin: 11/24/17 20:41 Dose: 40 mg Sodium Chloride (Flush - Normal Saline) 10 ml IVF Q12HR [facility] Last Admin: 11/25/17 08:52 Dose: 10 ml Sodium Chloride (Flush - Normal Saline) 10 ml IVF PRN PRN PRN Reason: Saline Flush Last Admin: 11/23/17 06:02 Dose: 10 ml Spironolactone (Aldactone) 12.5 mg PO DAILY [facility] Last Admin: 11/25/17 08:50 Dose: 12.5 mg
[2017-11-25] MEDS: Simvastatin 40 MG TAB PO SCH (20:27)
[2017-11-25] MEDS: Ezetimibe 10 MG TAB PO SCH (20:27)
[2017-11-26 05:22] LABS: Hemoglobin 7.5 g/dL (12.0-16.0)
[2017-11-26 05:44] LABS: Anion Gap 14 mmol/L (10-20); BUN (Urea Nitrogen) 83 mg/dL (9.8-20.1); Calc. Creatinine Clearance 32 mL/min (70-130); Calcium 8.9 mg/dL (7.8-10.44); Carbon Dioxide 30 mmol/L (23-31); Chloride 96 mmol/L (98-107); Estimated GFR-MDRD 33; Glucose 116 mg/dL (83-110); Potassium 4.4 mmol/L (3.5-5.1); Sodium 136 mmol/L (136-145)
[2017-11-26] MEDS: Apixaban 5 MG TAB PO SCH (08:21)
[2017-11-26] MEDS: hydrALAZINE 25 MG TAB PO SCH ×2 (08:21→16:24)
[2017-11-26] MEDS: Furosemide 40 MG TAB PO SCH (08:34)
[2017-11-26] MEDS: predniSONE 20 MG TAB PO SCH (08:34)
[2017-11-26] MEDS: Aspirin 81 mg Enteric Coated Tablet PO SCH (08:34)
[2017-11-26] MEDS: Carvedilol 6.25 MG TAB PO SCH (08:34)
[2017-11-26] MEDS: Cefdinir 300 MG CAP PO SCH (08:35)
[2017-11-26] MEDS: Lisinopril 20 MG TAB PO SCH (08:35)
[2017-11-26] MEDS: Fluticasone Propionate Nasal Spray 16 gm Bottle NASAL SCH (08:35)
[2017-11-26] MEDS: guaiFENesin ER 600 MG TAB PO SCH (08:35)
[2017-11-26] MEDS: Famotidine 20 MG TAB PO SCH (08:35)
[2017-11-26] MEDS: Digoxin 0.125 MG TAB PO SCH (08:35)
[2017-11-26] MEDS: Spironolactone 25 MG TAB PO SCH (08:36)
[2017-11-26 09:11] LABS: Glomerular Basmt Membrane SO 3 units (0-20)
[2017-11-26] MEDS: Morphine 4 MG/ML VIAL SLOW IVP PRN ×2 (10:45→13:42)
--- NOTE | 2017-11-26 13:15 | PRG ---
DATE OF SERVICE: 11/26/2017 SERVICE: Pulmonary Medicine. INTERVAL HISTORY: Over the weekend, it became clear that the patient was increasingly weak. She is not able to take any p.o. at this time. She is extraordinarily short of breath with minimal activity . As such, the family has decided to transition over to comfort measures only, which I think is perf ectly reasonable. She cannot provide me with additional elements of the history right now. She say cates that she is not currently in pain. PHYSICAL EXAMINATION: VITAL SIGNS: Afebrile, pulse 84, blood pressure 133/69, respirations 24, saturation 97% on 2 liters via facemask (50% Venti). HEENT: Normocephalic, atraumatic. Sclerae are white, conjunctivae pink. Oral and nasal mucosa is m oist without lesions. LUNGS: Decent air entry. There is no prolonged expiratory phase. Extensive crackles are still pres ent. HEART: Normal rate and regular. ABDOMEN: Soft, nontender, and nondistended. Bowel sounds are positive. MUSCULOSKELETAL: No cyanosis or clubbing. No pitting in the bilateral lower extremities. NEUROLOGIC: Grossly nonfocal. LABORATORY DATA: SHARMILA is positive. Anti-double stranded profile is present, but the titers are quite low. ANCAs are currently pending. Urinalysis is unremarkable. Creatinine 1.49, BUN 83 and up tren ding. Basic metabolic profile is otherwise unremarkable. Hemoglobin 7.5. Respiratory virus panel i s negative. ASSESSMENT: 1. Acute hypoxic respiratory failure. 2. 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 3. Severe mitral regurgitation. 4. Deep venous thrombosis without pulmonary embolism. 5. Pulmonary infiltrate, characterized by extensive ground glass opacifications with interstitial ed les (crazy paving). 6. Abnormal SHARMILA. DISCUSSION AND PLAN: Since the patient's family has decided to transition over to comfort care only, she has no further requirements for inpatient Pulmonary or Critical Care opinion. As such, we will sign off. Hospice evaluation is currently pending, but the family's preference would be to either re main in the hospital or go to an inpatient hospice facility.
--- NOTE | 2017-11-26 16:20 | PDOC.PN ---
- Subjective Encounter Start Date: 11/26/17 Encounter Start Time: 16:18 Subjective: feels very SOb.received morphine X1 and now resting better -: Son at bedside & care discussed.discussed w PCT as well -: pt requesting comfort care - Objective Resuscitation Status: Resuscitation Status DNR:Do Not Resuscitate MAR Reviewed: Yes Vital Signs & Weight: Vital Signs (12 hours) Temp Pulse Resp BP BP Pulse Ox 11/26/17 08:35 84 133/69 11/26/17 08:34 133/69 11/26/17 08:32 97.8 F 84 24 H 133/69 97 11/26/17 08:21 84 133/69 11/26/17 07:21 97.8 F 80 22 H 97 11/26/17 06:13 80 22 H 92 L Weight Weight 160 lb 4 oz Most Recent Monitor Data Heart Rate from ECG 90 NIBP 157/66 NIBP BP-Mean 108 Respiration from ECG 23 SpO2 91 I&O: 11/25/17 11/26/17 11/27/17 06:59 06:59 06:59 Intake Total 240 100 Output Total 850 925 Balance -850 -685 100 Result Diagrams: 11/26/17 03:39 11/26/17 03:39 Additional Labs: Accuchecks 11/25/17 11/25/17 11/23/17 19:56 16:38 05:54 POC Glucose 188 H 186 H 191 H Laboratory Tests 11/23/17 03:58 SHARMILA Screen POSITIVE H Anti-ds DNA IgG Ab 12.0 H Phys Exam - Physical Examination Constitutional: NAD pale Neck: no JVD coarse breath sounds Cardiovascular: RRR, no significant murmur Gastrointestinal: soft, no distention Musculoskeletal: no edema, pulses present somnolent Dx/Plan (1) Acute respiratory failure with hypoxia Code(s): J96.01 - ACUTE RESPIRATORY FAILURE WITH HYPOXIA Status: Acute Comment: Initially managed with BiPAP now on VM at 15L/min, wean as clinically indicated, likely multifactorial resp failure.PE ruled out.? Amiodarone toxicity Vs Flash Pulmonary edema Vs infection. 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 Code(s): I82.533 - CHRONIC EMBOLISM AND THROMBOSIS OF POPLITEAL VEIN, BILATERAL Status: Acute Comment: Patient has Bilateral DVT with ruled out PE,will need assisted anticoagulation given DVT's and chronic a-fib (4) Anemia Code(s): D64.9 - ANEMIA, UNSPECIFIED Status: Chronic (5) Afib Code(s): I48.91 - UNSPECIFIED ATRIAL FIBRILLATION Status: Chronic Qualifiers: Atrial fibrillation type: chronic Qualified Code(s): I48.2 - Chronic atrial fibrillation Comment: Rate controlled currently,Coreg and Digoxin, s/p recent partial ablation that was terminated after flash pulm edema.Amiodarone stopped by cardiology for concerns for pulmonary toxicity (6) CAD (coronary artery disease) Code(s): I25.10 - ATHSCL HEART DISEASE OF [place] CORONARY ARTERY W/O ANG PCTRS Status: Chronic Qualifiers: Coronary Disease-Associated Artery/Lesion type: [place] artery [place] vs. transplanted heart: [place] heart (7) Cardiomyopathy Code(s): I42.9 - CARDIOMYOPATHY, UNSPECIFIED Status: Chronic Qualifiers: Cardiomyopathy type: ischemic Qualified Code(s): I25.5 - Ischemic cardiomyopathy Comment: ef of 25-30%.on ASA,BB,KADE-I,Aldactone,Digoxin (8) DM type 2 (diabetes mellitus, type 2) Status: Chronic Qualifiers: Diabetes mellitus exterminator insulin use: without fpc use Diabetes mellitus complication status: with unspecified complications Qualified Code(s) : E11.8 - Type 2 diabetes mellitus with unspecified complications Comment: Continue on SSI, Hold metormnin. (9) HTN (hypertension) Code(s): I10 - ESSENTIAL (PRIMARY) HYPERTENSION Status: Chronic Qualifiers: Hypertension type: essential hypertension Qualified Code(s): I10 - Essential (primary) hypertension Comment: Continue on Lisinopril, Spironolactone, BB. (10) Recent GI bleed with Normal Endoscopy Status: Acute Comment: GI cleared to restart Anticoagulation (11) Severe mitral regurgitation Code(s): I34.0 - NONRHEUMATIC MITRAL (VALVE) INSUFFICIENCY Status: Chronic - Plan social science analyst, respiratory therapy, incentive spirometry, DVT proph w/SCDs as per pt 7 family wishes,willconsult hospive -: may remian in house w hospice as she is terminal -: cont supportive care for now as above. * . Review of Systems - Review of Systems Other: can not be obtained as pt is asleep after morphine - Medications/Allergies Allergies/Adverse Reactions: Allergies Allergy/AdvReac Type Severity Reaction Status Date / Time No Known Allergies Allergy Verified 12/01/14 17:16 Medications: Current Medications Hydrocodone Bitart/Acetaminophen ([place] 5/325) 1 tab PO Q4H PRN PRN Reason: Moderate Pain (4-6) Hydrocodone Bitart/Acetaminophen ([place] 7.5/325) 1 tab PO Q4H PRN PRN Reason: Severe Pain (7-10) Last Admin: 11/19/17 20:54 Dose: 1 tab Albuterol/Ipratropium (Duoneb) 3 ml NEB [id number] [facility] Last Admin: 11/26/17 12:20 Dose: Not Given Apixaban (Eliquis) 5 mg PO BID [facility] Last Admin: 11/26/17 08:21 Dose: 5 mg Aspirin (Ecotrin) 81 mg PO DAILY [facility] Last Admin: 11/26/17 08:34 Dose: Not Given Carvedilol (Coreg) 12.5 mg PO BID [facility] Last Admin: 11/26/17 08:34 Dose: Not Given Cefdinir (Omnicef) 300 mg PO BID [facility] Last Admin: 11/26/17 08:35 Dose: Not Given Cholecalciferol (Vitamin D3) 5,000 units PO DAILY [facility] Last Admin: 11/26/17 08:35 Dose: Not Given Digoxin (Lanoxin) 0.125 mg PO DAILY [facility] Last Admin: 11/26/17 08:35 Dose: Not Given Ezetimibe (Zetia) 10 mg PO HS [facility] Last Admin: 11/25/17 20:27 Dose: Not Given Famotidine (Pepcid) 20 mg PO 0900 [facility] Fluticasone Propionate (Flonase Nasal [place]) 0 gm NASAL DAILY [facility] Last Admin: 11/26/17 08:35 Dose: Not Given Furosemide (Lasix) 40 mg PO DAILY-AC [facility] Last Admin: 11/26/17 08:34 Dose: Not Given Guaifenesin (Mucinex) 1,200 mg PO Q12HR [facility] Last Admin: 11/26/17 08:35 Dose: Not Given Hydralazine HCl (Apresoline) 20 mg SLOW IVP Q2H PRN PRN Reason: Sbp Greater Than 140 Last Admin: 11/23/17 15:58 Dose: 20 mg Hydralazine HCl (Apresoline) 25 mg PO TID [facility] Last Admin: 11/26/17 08:21 Dose: 25 mg Labetalol HCl (Normodyne) 20 mg SLOW IVP Q2H PRN PRN Reason: Sbp Greater Than 140 Lisinopril (Zestril) 20 mg PO BID [facility] Last Admin: 11/26/17 08:35 Dose: Not Given Mineral Oil/White Petrolatum (Lacri-Lube Ointment) 0 gm EA EYE PRN PRN PRN Reason: Dry Eyes Morphine Sulfate (Morphine) 2 mg SLOW IVP Q1H PRN PRN Reason: Pain Last Admin: 11/26/17 13:42 Dose: 2 mg Ondansetron HCl (Zofran Odt) 4 mg PO Q6H PRN PRN Reason: Nausea/Vomiting Last Admin: 11/20/17 06:20 Dose: 4 mg Prednisone (Prednisone) 40 mg PO QAM-[facility] Last Admin: 11/26/17 08:34 Dose: Not Given Sertraline HCl (Zoloft) 25 mg PO DAILY [facility] Last Admin: 11/26/17 08:36 Dose: Not Given Simvastatin (Zocor) 40 mg PO HS [facility] Last Admin: 11/25/17 20:27 Dose: Not Given Sodium Chloride (Flush - Normal Saline) 10 ml IVF Q12HR [facility] Last Admin: 11/26/17 08:36 Dose: Not Given Sodium Chloride (Flush - Normal Saline) 10 ml IVF PRN PRN PRN Reason: Saline Flush Last Admin: 11/23/17 06:02 Dose: 10 ml Spironolactone (Aldactone) 12.5 mg PO DAILY [facility] Last Admin: 11/26/17 08:36 Dose: Not Given
[2017-11-26 16:44] VITALS: BP 96/70; TEMP 98.1
--- NOTE | 2017-11-26 20:44 | DIS ---
DATE OF ADMISSION: 11/18/2017 DATE OF DISCHARGE: 11/26/2017 CONDITION AT THE TIME OF DISCHARGE: Poor. DISCHARGE DISPOSITION: In-house hospice. DISCHARGE DIAGNOSES: 1. Acute on chronic respiratory failure. 2. Acute on chronic systolic congestive heart failure. 3. Bilateral deep venous thrombosis. 4. Chronic atrial fibrillation, on anticoagulation. 5. Chronic anemia. 6. Coronary artery disease. 7. Cardiomyopathy with EF of 25%-30%. 8. Severe mitral regurgitation. 9. Diabetes mellitus type 2. 10. Hypertension. 11. Recent gastrointestinal bleed with normal endoscopy. DISCHARGE MEDICATIONS: As per the hospice team to keep her comfortable. PROCEDURES DONE IN THE HOSPITAL: 1. Transthoracic echocardiogram, which shows worsening EF over the course of last few years of 30%-3 5% with severe mitral regurgitation, [id number] tricuspid, and moderate pulmonic regurgitation. 2. CT angio of the thorax, which is negative for any pulmonary embolism. Multifocal mixed alveolar and interstitial opacities representing multifocal pneumonia or chronic interstitial disease seen in the CT angio. 3. Lower extremity ultrasound on 11/18/2017 upon presentation, which showed occlusive DVT in the rig ht lower extremity, as well as near-occlusive DVT in the left lower extremity. CONSULTATIONS IN-HOUSE: 1. Pulmonary Medicine, Dr. Eddy. 2. Cardiology, Dr. Jain. HISTORY OF PRESENT ILLNESS: Ms. Deng is a very pleasant 82-year-old female with past medical his tory of chronic AFib, uncontrolled hypertension, systolic CHF, coronary artery disease, and diabetes, who presented to the emergency room with complaints of shortness of breath. She was recently discha rged from the hospital a week ago to rehab following a CHF exacerbation. She was [facility] with worsening hypoxia with O2 sat as low as 70%. She was severely hypoxic in the emerge ncy room and was started on BiPAP. The chest x-ray showed marked pulmonary edema and she was given s ublingual nitroglycerin, as well as diuretics and was admitted to [facility] for acute hypoxic respiratory failure, on BiPAP. Please see admission history and physical for further details. Blood gas done at the time of admission shows a pH of 7.4, pCO2 of 42, pO2 of 98, and A-a gradient 562. Pulmonary Med icine and Cardiology were consulted upon admission. HOSPITAL COURSE: She underwent lower extremity ultrasound, which showed DVT. It was noted that the patient has not been on her anticoagulation since her last discharge from the hospital. At that time , an ablation was attempted, but had to be given up because of flash pulmonary edema. Because of thi s, she was started back on anticoagulation initially with subcutaneous Lovenox and later transitionin g back to Eliquis. Pulmonary medicine saw the patient and recommended continuing ventilatory support . She was on and off on BiPAP as well as Ventimask. Echocardiogram was done, which showed worsening of ejection fraction. Cardiology was consulted and their recommendation was continuation of diuresi s, which was done. Despite maximum treatment with diuretics, empiric antibiotics, and pulmonary supportive care, the pat ient deteriorated. She was unable to be weaned off Ventimask even for a few seconds. This was thoug ht secondary to her underlying cardiomyopathy as well as severe mitral regurgitation and uncontrolled hypertension causing flash pulmonary edema. She was monitored over the course of several days and e ventually it was felt that she is not going to recover. She was eventually transitioned out of the C ritical Care Unit to IM and then medical floor. Multiple family conferences were held and the patient also eventually expressed wishes to be kept com fortable and stop any extensive measures. Palliative Care Team was consulted and the patient continu ed to progress very poorly and had a quick decline. Ultimately, she was made comfort care by herself and her family members. She was referred to hospice, which accepted the patient. Because of the po ssibility of a quick demise without the oxygen supplementation on Ventimask, she was kept in-house, b ut was discharged to hospice services under Dr. Barros's care. The patient was seen and examined prior to the discharge to hospice. Please see hospitalist progress note from today's date for further details including [id number] interaction. Family and the patie nt are agreeable to the plan for now. Discussion was done also with the Palliative Care Team and [facility] e Management. TIME SPENT: Total time spent, 32 minutes including [id number] interaction.
[2017-11-27] MEDS ORDERED: Famotidine 20 MG TAB PO SCH (09:00)
[2017-11-28 17:13] LABS: Cytoplasmic (C-ANCA) <1:20 titer (Neg:<1:20); Myeloperoxidase AutoAbs <9.0 U/mL (0.0-9.0); Perinuclear (P-ANCA) <1:20 titer (Neg:<1:20); Proteinase-3 AutoAbs Less than 3.5 U/mL (0.0-3.5)
--- NOTE | 2018-01-01 12:52 | EKG ---
Test Reason : Blood Pressure : / mmHG Vent. Rate : 083 BPM Atrial Rate : 082 BPM P-R Int : 000 ms QRS Dur : 116 ms QT Int : 372 ms P-R-T Axes : 000 -26 160 degrees QTc Int : 437 ms Atrial fibrillation with a competing junctional pacemaker Left ventricular hypertrophy with QRS widening Possible Lateral infarct , age undetermined Inferior infarct , age undetermined Abnormal ECG No changes from 03-NOV-2017 Confirmed by NELLI TREVINO, MARLIN ([id number]), book or script editor MARISSA PHIPPS ([id number]) on 01/01/2018 12:51:39 PM Referred By: Confirmed By:MARLIN AIKEN MD
== END 2017-11-26 16:32 | disposition hospice, inpatient (51) | DRG 291 ==
LOC: ERS 15:22 → CCU 17:09 → 2NO 11-20 16:15 → IMCU/EMU 11-23 11:26 → T4-A 11-24 18:21
PROVIDERS: ADMIT Family Medicine; ATTEND Family Medicine
PROC: 5A09357 Assistance with Respiratory Ventilation, Less than 24 Consecutive Hours, Continuous Positive Airway Pressure (ICD-10-PCS; principal; 2017-11-18)
DX: I11.0 Hypertensive heart disease with heart failure (principal); J96.21 Acute and chronic respiratory failure with hypoxia; I24.8 Other forms of acute ischemic heart disease; D62 Acute posthemorrhagic anemia; I08.1 Rheumatic disorders of both mitral and tricuspid valves; I82.533 Chronic embolism and thrombosis of popliteal vein, bilateral; I25.5 Ischemic cardiomyopathy; I50.23 Acute on chronic systolic (congestive) heart failure; I48.2 Chronic atrial fibrillation; E11.9 Type 2 diabetes mellitus without complications; D63.8 Anemia in other chronic diseases classified elsewhere; E78.5 Hyperlipidemia, unspecified; I25.10 Atherosclerotic heart disease of native coronary artery without angina pectoris; K21.9 Gastro-esophageal reflux disease without esophagitis; Z95.5 Presence of coronary angioplasty implant and graft; Z79.82 Long term (current) use of aspirin; Z51.5 Encounter for palliative care; Z66 Do not resuscitate; I25.2 Old myocardial infarction
CPT/HCPCS: 36415; 36416; 51702; 71045; 71275; 80048; 80053; 80202; 81003; 82550; 82553; 82805; 83516; 83520; 83540; 83550; 83605; 83690; 83735; 83880; 84100; 84484; 85014; 85018; 85025; 85049; 85610; 85730; 86038; 86225; 86256; 86850; 86900; 86901; 87040; 87633; 87798; 87804; 93005; 93306; 93970; 94640; 94660; 96361; 96374; G8978-GP-CM; G8979-GP-CK; G8987-GO-CM; G8988-GO-CK; J0360; J0692; J1650; J1940; J2270; J2916; J3370; J7050; J7506; J7620

== ENCOUNTER 2017-11-26 16:32 | Inpatient (IN) | payer OTHER ==
[2017-11-26] MEDS ORDERED: Hyoscyamine Sulfate SL 0.125 mg Tablet SL PRN (17:16)
[2017-11-26] MEDS ORDERED: Acetaminophen 650 MG Suppository PR PRN (17:17)
[2017-11-26] MEDS: Morphine 4 MG/ML VIAL SLOW IVP PRN ×2 (18:34→21:09)
[2017-11-26 18:57] VITALS: BMI 32.3
[2017-11-26 20:46] VITALS: BP 125/65; TEMP 97.4
[2017-11-27] MEDS: Morphine 4 MG/ML VIAL SLOW IVP PRN ×5 (10:01→20:41)
[2017-11-27] MEDS: Lorazepam 2 MG/ML VIAL SLOW IVP PRN (15:46)
[2017-11-28] MEDS: Morphine 4 MG/ML VIAL SLOW IVP PRN ×5 (02:21→19:55)
[2017-11-28] MEDS: Lorazepam 2 MG/ML VIAL SLOW IVP PRN ×4 (10:17→19:54)
[2017-11-29] MEDS: Morphine 4 MG/ML VIAL SLOW IVP PRN (03:51)
--- NOTE | 2017-11-30 10:34 | DS ---
DATE OF ADMISSION: 11/26/2017 DATE OF : 11/29/2017 CAUSE OF : Congestive heart failure, respiratory failure, mitral regurgitation. BRIEF HOSPITAL COURSE: This is an 82-year-old female who presented with weakness and dizziness, had severe congestive heart failure and had respiratory failure. The patient was admitted to hospice and comfort measures were instituted. The patient comfortably with family around. DISPOSITION: The body was sent to the [facility]. All the above questions were answered with the patient's family.
== END 2017-11-29 05:40 | disposition expired | DRG 189 ==
LOC: T4-A 16:32
PROVIDERS: ADMIT Internal Medicine Nephrology; ATTEND Internal Medicine Nephrology
DX: J96.01 Acute respiratory failure with hypoxia (principal); I21.A1 Myocardial infarction type 2; I50.33 Acute on chronic diastolic (congestive) heart failure; I42.9 Cardiomyopathy, unspecified; D63.8 Anemia in other chronic diseases classified elsewhere; E11.9 Type 2 diabetes mellitus without complications; I48.91 Unspecified atrial fibrillation; I11.0 Hypertensive heart disease with heart failure; Z66 Do not resuscitate; I25.10 Atherosclerotic heart disease of native coronary artery without angina pectoris; E78.5 Hyperlipidemia, unspecified; Z79.01 Long term (current) use of anticoagulants; Z79.82 Long term (current) use of aspirin; K21.9 Gastro-esophageal reflux disease without esophagitis; Z95.5 Presence of coronary angioplasty implant and graft; Z90.49 Acquired absence of other specified parts of digestive tract; Z79.84 Long term (current) use of oral hypoglycemic drugs; I34.0 Nonrheumatic mitral (valve) insufficiency; Z79.4 Long term (current) use of insulin
CPT/HCPCS: J2060; J2270